=== PATIENT | male | born 1940 | race Caucasian/White ===

== ENCOUNTER 2016-09-25 20:26 | Emergency (ER) | payer OTHER, MEDICARE ==
--- NOTE | 2016-09-25 20:42 | PDOC ---
History of Present Illness - General History Source: Patient Exam Limitations: No Limitations - History of Present Illness Initial Comments: 09/25/16 21:39 The patient is a 75 year old male, with significant past medical history of HTN , HLD, right hip replacement (2 months ago), who presents today complaining of left shoulder pain s/p fall yesterday. The patient reports that he attempted to sit on the edge of a rolling lawn chair when it collapsed in and he fell on his left side and onto his left shoulder. The pain is exacerbated secondary to shoulder abduction and alleviated secondary to adduction. He denies any head trauma or LOC. He denies neck and back pain. He denies fever, nausea, vomiting, chills. Allergies: none reported <Kelly Bear - Last Filed: 09/25/16 21:39> <Karen Irving - Last Filed: 09/27/16 11:26> - General Stated Complaint: FALL/SHOULDER PAIN Time Seen by Provider: 09/25/16 20:41 Past History <Kelly Bear - Last Filed: 09/25/16 21:39> - Past Medical History Anemia: No Asthma: No Cancer: No Cardiac Disorders: Yes CVA: No COPD: No CHF: No Dementia: No Diabetes: No GI Disorders: Yes (colonoscopy with polyps benign) Disorders: Yes HTN: Yes Hypercholesterolemia: Yes Liver Disease: No Seizures: No Thyroid Disease: No - Surgical History Abdominal Surgery: No Appendectomy: No Cardiac Surgery: No Cholecystectomy: No Lung Surgery: No Neurologic Surgery: No Orthopedic Surgery: No - Psycho/Social/Smoking Cessation Hx Smoking History: Former smoker Have you smoked in the past 12 months: No If you are a former smoker, when did you quit?: 45YRS AGO Hx Alcohol Use: Yes Drug/Substance Use Hx: No Hx Substance Use Treatment: No <Karen Irving - Last Filed: 09/27/16 11:26> - Past Medical History Allergies/Adverse Reactions: Allergies Allergy/AdvReac Type Severity Reaction Status Date / Time No Known Drug Allergies Allergy Verified 09/25/16 20:44 Home Medications: Ambulatory Orders Lisinopril [Prinivil] 5 mg PO DAILY 08/03/11 Ibuprofen [Advil -] 200 mg PO TID PRN #21 tablet 09/25/16 Review of Systems - Review of Systems Able to Perform ROS?: Yes Comments:: 09/25/16 21:39 GENERAL/CONSTITUTIONAL: No fever or chills. No weakness. HEAD, EYES, EARS, NOSE AND THROAT: No change in vision. No ear pain or discharge. No sore throat. CARDIOVASCULAR: No chest pain or shortness of breath. RESPIRATORY: No cough, wheezing, or hemoptysis. GASTROINTESTINAL: No nausea, vomiting, diarrhea or constipation. GENITOURINARY: No dysuria, frequency, or change in urination. MUSCULOSKELETAL: +left shoulder pain s/p fall. No joint or muscle swelling or pain. No neck or back pain. SKIN: No rash NEUROLOGIC: No headache, vertigo, loss of consciousness, or change in strength/ sensation. ENDOCRINE: No increased thirst. No abnormal weight change. HEMATOLOGIC/LYMPHATIC: No anemia, easy bleeding, or history of blood clots. ALLERGIC/IMMUNOLOGIC: No hives or skin allergy. <Kelly Bear - Last Filed: 09/25/16 21:39> *Physical Exam - Vital Signs Last Vital Signs Temp Pulse Resp BP Pulse Ox 98.3 F 98 H 18 138/86 99 09/25/16 20:44 09/25/16 20:44 09/25/16 20:44 09/25/16 20:44 09/25/16 20:44 - Physical Exam Comments: 09/25/16 21:39 GENERAL: Awake, alert, and fully oriented, in no acute distress HEAD: No signs of trauma EYES: PERRLA, EOMI, sclera anicteric, conjunctiva clear LEFT UPPER EXTREMITY: Full ROM. No deformity. Mild tenderness over the acromion. Normal range of motion, no edema. No clubbing or cyanosis. No cords, erythema. NEUROLOGICAL: Cranial nerves II through XII grossly intact. Normal speech, normal gait SKIN: Warm, Dry, normal turgor, no rashes or lesions noted. <Kelly Bear - Last Filed: 09/25/16 21:39> ED Treatment Course - Medications Given in the ED: ED Medications Discontinued Medications Generic Name Dose Route Start Last Admin Trade Name Freq PRN Reason Stop Dose Admin Ibuprofen 400 mg 09/25/16 21:12 09/25/16 21:35 Motrin - PO 09/25/16 21:13 Not Given ONCE ONE <Kelly Bear - Last Filed: 09/25/16 21:39> Medical Decision Making - Medical Decision Making 09/25/16 22:30 Pt presents to the ED complaining of L shoulder pain after minor fall. Has pain with abduction of the shoulder only. No bony tenderness. Xray performed to rule out fracture and is negative on my preliminary read. Bursitis vs rotator cuff tear. Will discharge home with follow up with PMD. <Karen Irving - Last Filed: 09/27/16 11:26> *DC/Admit/Observation/Transfer - Attestations Scribe Attestion: 09/25/16 21:40 Documentation prepared by DELLA Turner, acting as esthetician and manager medical spa for Karen Irving MD. <Kelly Bear - Last Filed: 09/25/16 21:39> - Discharge Dispostion Admit: No <Karen Irving - Last Filed: 09/27/16 11:26> Diagnosis at time of Disposition: Sprain of shoulder - Discharge Dispostion Disposition: HOME Condition at time of disposition: Good - Prescriptions Prescriptions: Ibuprofen [Advil -] 200 mg PO TID PRN #21 tablet PRN Reason: Pain - Patient Instructions Printed Discharge Instructions: DI for Shoulder Sprain Additional Instructions: make sure that you move your shoulder every day. Make sure that you follow up with your primary care doctor. You may have a tear in your rotator cuff.
[2016-09-25 20:47] VITALS: BP 138/86; PULSE 98; TEMP 98.3; BMI 25.7
[2016-09-25] MEDS ORDERED: IBUPROFEN 400 MG TABLET (FP) PO ONE (21:12)
== END 2016-09-25 23:05 | disposition home or self-care (01) ==
LOC: JER 20:26
DX: S49.82XA Other specified injuries of left shoulder and upper arm, initial encounter (principal); W07.XXXA Fall from chair, initial encounter; Z91.81 History of falling; Y93.89 Activity, other specified; Y92.017 Garden or yard in single-family (private) house as the place of occurrence of the external cause; I10 Essential (primary) hypertension; E78.00 Pure hypercholesterolemia, unspecified; Z96.641 Presence of right artificial hip joint
CPT/HCPCS: 73030-TC-LT; 99283-25

== ENCOUNTER 2020-10-10 04:52 | Day surgery (SDC) | payer OTHER, MEDICARE ==
[2020-10-09 17:17] VITALS: BMI 25.6
[2020-10-10 08:31] LABS: INR 1.2 (0.83-1.09); PROTHROMBIN TIME (PATIENT) 14.5 SEC (9.7-13.0)
[2020-10-10] MEDS ORDERED: MIDAZOLAM HCL 2 MG/2 ML SINGLE DOSE VIAL IVPUSH ONE (10:55)
[2020-10-10 13:27] VITALS: TEMP 97.8
[2020-10-10 13:36] VITALS: BP 125/75; PULSE 85
== END 2020-10-10 13:30 | disposition home or self-care (01) ==
LOC: JRADIR 04:52
PROVIDERS: ATTEND Internal Medicine Hematology & Oncology
PROC: 07DR3ZX Extraction of Iliac Bone Marrow, Percutaneous Approach, Diagnostic (ICD-10-PCS; principal; 2020-10-10)
DX: C90.00 Multiple myeloma not having achieved remission (principal)
CPT/HCPCS: 20225; 36415; 85610; 87899

== ENCOUNTER 2020-10-13 07:13 | Day surgery (SDC) | payer OTHER, MEDICARE ==
[2020-10-13] MEDS ORDERED: DENOSUMAB 120 MG/1.7 ML VIAL SQ ONE (13:30)
[2020-10-13 13:37] LABS: BASO % 0.4 % (0-2.0); EOS % 3.3 % (0-4.5); HEMATOCRIT 25.3 % (35.4-49); HEMOGLOBIN 8.6 GM/dL (11.7-16.9); LYMPH % 27.9 % (8-40); MCH 32.6 pg (25.7-33.7); MCHC 34.1 g/dl (32.0-35.9); MEAN CELL VOLUME 95.5 fl (80-96); MEAN PLT VOLUME 8.7 fl (7.5-11.1); MONO % 12.8 % (3.8-10.2); NEUT % 55.6 % (42.8-82.8); PLATELET COUNT 189 10^3/uL (134-434); RBC 2.65 M/mm3 (4.00-5.60); RDW 15.2 % (11.9-15.9); WHITE BLOOD COUNT 3.3 K/mm3 (4.0-10.0)
[2020-10-13] MEDS ORDERED: DEXAMETHASONE 4 MG TABLET (FP) PO ONE (14:00)
[2020-10-13] MEDS ORDERED: ONDANSETRON 8 MG TABLET (FP) PO ONE (14:00)
[2020-10-13] MEDS ORDERED: BORTEZOMIB (VELCADE) 2.5 MG/ML SUB-Q INJECTION SQ ONE (14:00)
[2020-10-13 19:01] VITALS: BP 110/66; PULSE 92; TEMP 99
== END 2020-10-13 15:00 | disposition home or self-care (01) ==
LOC: JONCCHEMO 07:13
PROVIDERS: ATTEND Internal Medicine Hematology & Oncology
PROC: 3E013GC Introduction of Other Therapeutic Substance into Subcutaneous Tissue, Percutaneous Approach (ICD-10-PCS; principal; 2020-10-13)
PROC: 3E01305 Introduction of Other Antineoplastic into Subcutaneous Tissue, Percutaneous Approach (ICD-10-PCS; 2020-10-13)
DX: Z51.11 Encounter for antineoplastic chemotherapy (principal); C90.00 Multiple myeloma not having achieved remission
CPT/HCPCS: 36415; 85025; 96372; 96401; J0897; J9041

== ENCOUNTER 2020-10-20 10:18 | Day surgery (SDC) | payer OTHER, MEDICARE ==
[2020-10-20] MEDS ORDERED: BORTEZOMIB (VELCADE) 2.5 MG/ML SUB-Q INJECTION SQ ONE (11:45)
[2020-10-20] MEDS ORDERED: ONDANSETRON 4 MG TABLET PO ONE (11:45)
[2020-10-20] MEDS ORDERED: DEXAMETHASONE 4 MG TABLET (FP) PO ONE (11:45)
[2020-10-21 11:51] VITALS: BP 126/54; PULSE 98; TEMP 98.5
== END 2020-10-20 16:00 | disposition home or self-care (01) ==
LOC: JONCCHEMO 10:18
PROVIDERS: ATTEND Internal Medicine Hematology & Oncology
DX: Z51.11 Encounter for antineoplastic chemotherapy (principal); C90.00 Multiple myeloma not having achieved remission
CPT/HCPCS: 96401; J9041

== ENCOUNTER 2020-10-29 06:59 | Day surgery (SDC) | payer OTHER, MEDICARE ==
[2020-10-29] MEDS ORDERED: ONDANSETRON 4 MG TABLET PO ONE (10:00)
[2020-10-29] MEDS ORDERED: DEXAMETHASONE 4 MG TABLET (FP) PO ONE (10:00)
[2020-10-29] MEDS ORDERED: BORTEZOMIB (VELCADE) 2.5 MG/ML SUB-Q INJECTION SQ ONE (10:30)
[2020-10-29 11:00] LABS: BASO % 1.1 % (0-2.0); EOS % 2.3 % (0-4.5); HEMATOCRIT 27.7 % (35.4-49); HEMOGLOBIN 9.3 GM/dL (11.7-16.9); LYMPH % 13.3 % (8-40); MCH 33.2 pg (25.7-33.7); MCHC 33.5 g/dl (32.0-35.9); MEAN CELL VOLUME 99.1 fl (80-96); MEAN PLT VOLUME 9.5 fl (7.5-11.1); MONO % 7.6 % (3.8-10.2); NEUT % 75.7 % (42.8-82.8); PLATELET COUNT 153 10^3/uL (134-434)
[2020-10-29 11:22] LABS: ALBUMIN 2.6 g/dl (3.4-5.0); CALCIUM 7.7 mg/dL (8.5-10.1)
[2020-10-29 11:23] LABS: BLOOD UREA NITROGEN 24.9 mg/dL (7-18)
[2020-10-29 11:26] LABS: CREATININE 1.3 mg/dL (0.55-1.3)
[2020-10-29 11:27] LABS: BILIRUBIN,TOTAL 0.4 mg/dL (0.2-1); TOT PROT 9.7 g/dl (6.4-8.2)
[2020-10-29 16:24] VITALS: BP 142/87; PULSE 100; TEMP 98.4
[2020-10-30 11:08] LABS: HEP B CORE AB, TOT Negative (Negative)
== END 2020-10-29 11:40 | disposition home or self-care (01) ==
LOC: JONCCHEMO 06:59
PROVIDERS: ATTEND Internal Medicine Hematology & Oncology
DX: Z51.11 Encounter for antineoplastic chemotherapy (principal); C90.00 Multiple myeloma not having achieved remission
CPT/HCPCS: 36415; 80053; 85025; 86704; 86706; 86707; 86708; 86709; 87340; 96401; J9041

== ENCOUNTER 2020-11-05 05:14 | Day surgery (SDC) | payer OTHER, MEDICARE ==
[2020-11-05] MEDS ORDERED: BORTEZOMIB (VELCADE) 2.5 MG/ML SUB-Q INJECTION SQ ONE (10:00)
[2020-11-05] MEDS ORDERED: ONDANSETRON 8 MG TABLET (FP) PO ONE (10:00)
[2020-11-05] MEDS ORDERED: DEXAMETHASONE 4 MG TABLET (FP) PO ONE (10:00)
[2020-11-05 12:03] LABS: BASO % 0.6 % (0-2.0); EOS % 3.4 % (0-4.5); HEMATOCRIT 26.7 % (35.4-49); HEMOGLOBIN 8.9 GM/dL (11.7-16.9); LYMPH % 11.9 % (8-40); MCH 33.2 pg (25.7-33.7); MCHC 33.4 g/dl (32.0-35.9); MEAN CELL VOLUME 99.5 fl (80-96); MEAN PLT VOLUME 9.9 fl (7.5-11.1); MONO % 11.4 % (3.8-10.2); NEUT % 72.7 % (42.8-82.8); PLATELET COUNT 163 10^3/uL (134-434); RBC 2.69 M/mm3 (4.00-5.60); RDW 16.8 % (11.9-15.9); WHITE BLOOD COUNT 4.4 K/mm3 (4.0-10.0)
[2020-11-05 12:25] LABS: MAGNESIUM 1.9 mg/dL (1.8-2.4)
[2020-11-05 12:26] LABS: CALCIUM 8.1 mg/dL (8.5-10.1)
[2020-11-05 12:27] LABS: ALBUMIN 2.6 g/dl (3.4-5.0)
[2020-11-05 12:30] LABS: CREATININE 1.1 mg/dL (0.55-1.3)
[2020-11-05 12:31] LABS: BILIRUBIN,TOTAL 0.3 mg/dL (0.2-1)
[2020-11-05 12:32] LABS: TOT PROT 9.2 g/dl (6.4-8.2)
[2020-11-05 13:13] LABS: URIC ACID 4.2 mg/dL (2.6-7.2)
[2020-11-05 13:32] LABS: EPI CELLS 5 /uL (0-25.1); HYALINE CASTS 6 /uL (0-3.1); URINE APPEARANCE CLOUDY; URINE BACTERIA 2 /uL (0-1359); URINE BILIRUBIN NEGATIVE (NEGATIVE); URINE COLOR YELLOW; URINE GLUCOSE (UA) NEGATIVE (NEGATIVE); URINE KETONE NEGATIVE (NEGATIVE); URINE LEUK ESTERASE NEGATIVE (NEGATIVE); URINE NITRITE NEGATIVE (NEGATIVE); URINE PROTEIN 1+ (NEGATIVE); URINE RBC 2 /uL (0-23.9); URINE UROBILINOGEN 0.2 mg/dL (0.2-1.0); URINE WBC 5 /uL (0-25.8)
[2020-11-05 14:55] VITALS: BP 124/65; PULSE 100; TEMP 98.4
[2020-11-06 17:10] LABS: FREE KAPPA,SERUM 189.7 mg/L (3.3-19.4)
== END 2020-11-05 13:45 | disposition home or self-care (01) ==
LOC: JONCCHEMO 05:14
PROVIDERS: ATTEND Internal Medicine Hematology & Oncology
DX: Z51.11 Encounter for antineoplastic chemotherapy (principal); C90.00 Multiple myeloma not having achieved remission; R50.9 Fever, unspecified
CPT/HCPCS: 36415; 71046-TC-FY; 80053; 80061; 81003; 82728; 83036; 83540; 83550; 83615; 83721; 83735; 83883; 84550; 85025; 87040; 87086; 96401; J9041

== ENCOUNTER 2020-11-12 06:53 | Day surgery (SDC) | payer OTHER, MEDICARE ==
[2020-11-12] MEDS ORDERED: ONDANSETRON 8 MG TABLET (FP) PO ONE (10:00)
[2020-11-12] MEDS ORDERED: DEXAMETHASONE 4 MG TABLET (FP) PO ONE (10:00)
[2020-11-12] MEDS ORDERED: BORTEZOMIB (VELCADE) 2.5 MG/ML SUB-Q INJECTION SQ ONE (10:30)
[2020-11-12 12:00] LABS: BASO % 1.2 % (0-2.0); EOS % 2.8 % (0-4.5); HEMATOCRIT 27.9 % (35.4-49); HEMOGLOBIN 9.3 GM/dL (11.7-16.9); LYMPH % 24.6 % (8-40); MCH 33.6 pg (25.7-33.7); MCHC 33.2 g/dl (32.0-35.9); MEAN CELL VOLUME 101.1 fl (80-96); MEAN PLT VOLUME 9.3 fl (7.5-11.1); MONO % 22.6 % (3.8-10.2); NEUT % 48.8 % (42.8-82.8); PLATELET COUNT 191 10^3/uL (134-434); RBC 2.77 M/mm3 (4.00-5.60); RDW 16.9 % (11.9-15.9); WHITE BLOOD COUNT 3.7 K/mm3 (4.0-10.0)
[2020-11-12] MEDS ORDERED: DENOSUMAB 120 MG/1.7 ML VIAL SQ ONE (12:23)
[2020-11-12 12:24] LABS: ALBUMIN 2.6 g/dl (3.4-5.0); BLOOD UREA NITROGEN 20.4 mg/dL (7-18)
[2020-11-12 12:27] LABS: CREATININE 1.2 mg/dL (0.55-1.3)
[2020-11-12 12:29] LABS: BILIRUBIN,TOTAL 0.2 mg/dL (0.2-1)
[2020-11-12 12:32] LABS: TOT PROT 8.7 g/dl (6.4-8.2)
[2020-11-12 13:19] LABS: ANISOCYTOSIS 1+; MACROCYTOSIS 0; PLATELET ESTIMATE NORMAL
[2020-11-12 16:22] VITALS: BP 147/66; PULSE 84; TEMP 98.3
== END 2020-11-12 13:15 | disposition home or self-care (01) ==
LOC: JONCCHEMO 06:53
PROVIDERS: ATTEND Internal Medicine Hematology & Oncology
PROC: 3E01305 Introduction of Other Antineoplastic into Subcutaneous Tissue, Percutaneous Approach (ICD-10-PCS; principal; 2020-11-12)
PROC: 3E013GC Introduction of Other Therapeutic Substance into Subcutaneous Tissue, Percutaneous Approach (ICD-10-PCS; 2020-11-12)
DX: Z51.11 Encounter for antineoplastic chemotherapy (principal); C90.00 Multiple myeloma not having achieved remission
CPT/HCPCS: 36415; 80053; 83615; 84550; 85025; 96372; 96401; J0897; J9041

== ENCOUNTER 2020-11-19 06:58 | Day surgery (SDC) | payer OTHER, MEDICARE ==
[2020-11-19] MEDS ORDERED: DEXAMETHASONE 4 MG TABLET (FP) PO ONE (10:00)
[2020-11-19] MEDS ORDERED: ONDANSETRON 8 MG TABLET (FP) PO ONE (10:00)
[2020-11-19] MEDS ORDERED: BORTEZOMIB (VELCADE) 2.5 MG/ML SUB-Q INJECTION SQ ONE (10:30)
[2020-11-19 11:41] LABS: BASO % 0.6 % (0-2.0); EOS % 3.8 % (0-4.5); HEMATOCRIT 27.9 % (35.4-49); HEMOGLOBIN 9.4 GM/dL (11.7-16.9); LYMPH % 11.8 % (8-40); MCHC 33.9 g/dl (32.0-35.9); MEAN CELL VOLUME 100.2 fl (80-96); MEAN PLT VOLUME 10.5 fl (7.5-11.1); MONO % 10.2 % (3.8-10.2); NEUT % 73.6 % (42.8-82.8); PLATELET COUNT 115 10^3/uL (134-434); RBC 2.78 M/mm3 (4.00-5.60); RDW 16.7 % (11.9-15.9)
[2020-11-19 12:04] LABS: CALCIUM 7.8 mg/dL (8.5-10.1)
[2020-11-19 12:05] LABS: ALBUMIN 2.7 g/dl (3.4-5.0); BLOOD UREA NITROGEN 14.6 mg/dL (7-18)
[2020-11-19 12:09] LABS: BILIRUBIN,TOTAL 0.4 mg/dL (0.2-1); TOT PROT 8.4 g/dl (6.4-8.2)
[2020-11-19 17:45] VITALS: BP 106/57; PULSE 86; TEMP 98.5
== END 2020-11-19 13:30 | disposition home or self-care (01) ==
LOC: JONCCHEMO 06:58
PROVIDERS: ATTEND Internal Medicine Hematology & Oncology
DX: Z51.11 Encounter for antineoplastic chemotherapy (principal); C90.00 Multiple myeloma not having achieved remission
CPT/HCPCS: 36415; 80053; 82784; 83883; 85025; 96401; 96409; J9041

== ENCOUNTER 2020-11-26 08:37 | Day surgery (SDC) | payer OTHER, MEDICARE ==
[2020-11-26 09:47] LABS: BASO % 1.1 % (0-2.0); EOS % 5.5 % (0-4.5); HEMATOCRIT 27.5 % (35.4-49); HEMOGLOBIN 9.5 GM/dL (11.7-16.9); LYMPH % 16.4 % (8-40); MCH 34.8 pg (25.7-33.7); MCHC 34.7 g/dl (32.0-35.9); MEAN CELL VOLUME 100.3 fl (80-96); MONO % 14.3 % (3.8-10.2); NEUT % 62.7 % (42.8-82.8); PLATELET COUNT 120 10^3/uL (134-434); RBC 2.74 M/mm3 (4.00-5.60); WHITE BLOOD COUNT 4.1 K/mm3 (4.0-10.0)
[2020-11-26] MEDS ORDERED: DEXAMETHASONE 4 MG TABLET (FP) PO ONE (10:00)
[2020-11-26] MEDS ORDERED: ONDANSETRON 8 MG TABLET (FP) PO ONE (10:00)
[2020-11-26 10:08] LABS: CALCIUM 7.4 mg/dL (8.5-10.1)
[2020-11-26 10:09] LABS: ALBUMIN 2.6 g/dl (3.4-5.0); BLOOD UREA NITROGEN 14.2 mg/dL (7-18)
[2020-11-26 10:13] LABS: BILIRUBIN,TOTAL 0.3 mg/dL (0.2-1); TOT PROT 7.6 g/dl (6.4-8.2)
[2020-11-26] MEDS ORDERED: BORTEZOMIB (VELCADE) 2.5 MG/ML SUB-Q INJECTION SQ ONE (10:30)
[2020-11-26 14:50] VITALS: BP 117/66; PULSE 78; TEMP 98.4
== END 2020-11-26 12:40 | disposition home or self-care (01) ==
LOC: JONCCHEMO 08:37
PROVIDERS: ATTEND Internal Medicine Hematology & Oncology
DX: Z51.11 Encounter for antineoplastic chemotherapy (principal); C90.00 Multiple myeloma not having achieved remission
CPT/HCPCS: 36415; 80053; 85025; 96401; J9041

== ENCOUNTER 2020-12-03 07:17 | Day surgery (SDC) | payer OTHER, MEDICARE ==
[2020-12-03] MEDS ORDERED: BORTEZOMIB (VELCADE) 2.5 MG/ML SUB-Q INJECTION SQ ONE (10:00)
[2020-12-03] MEDS ORDERED: ONDANSETRON 8 MG TABLET (FP) PO ONE (10:00)
[2020-12-03] MEDS ORDERED: DEXAMETHASONE 4 MG TABLET (FP) PO ONE (10:00)
[2020-12-03 11:06] LABS: BASO % 1.4 % (0-2.0); EOS % 10.1 % (0-4.5); HEMATOCRIT 29.4 % (35.4-49); HEMOGLOBIN 9.9 GM/dL (11.7-16.9); LYMPH % 20.4 % (8-40); MCH 34.1 pg (25.7-33.7); MCHC 33.8 g/dl (32.0-35.9); MEAN CELL VOLUME 101.2 fl (80-96); MEAN PLT VOLUME 10.5 fl (7.5-11.1); MONO % 12.7 % (3.8-10.2); NEUT % 55.4 % (42.8-82.8); PLATELET COUNT 134 10^3/uL (134-434); RDW 15.8 % (11.9-15.9); WHITE BLOOD COUNT 3.3 K/mm3 (4.0-10.0)
[2020-12-03 11:28] LABS: CALCIUM 7.5 mg/dL (8.5-10.1)
[2020-12-03 11:29] LABS: ALBUMIN 2.8 g/dl (3.4-5.0); BLOOD UREA NITROGEN 14.8 mg/dL (7-18)
[2020-12-03 11:32] LABS: CREATININE 0.9 mg/dL (0.55-1.3)
[2020-12-03 11:34] LABS: BILIRUBIN,TOTAL 0.3 mg/dL (0.2-1); TOT PROT 6.8 g/dl (6.4-8.2)
[2020-12-03 19:00] VITALS: BP 130/61; PULSE 76; TEMP 98.3
[2020-12-04 17:07] LABS: FREE KAPPA,SERUM 119.7 mg/L (3.3-19.4)
== END 2020-12-03 12:30 | disposition home or self-care (01) ==
LOC: JONCCHEMO 07:17
PROVIDERS: ATTEND Internal Medicine Hematology & Oncology
DX: Z51.11 Encounter for antineoplastic chemotherapy (principal); C90.00 Multiple myeloma not having achieved remission
CPT/HCPCS: 36415; 80053; 82784; 83883; 85025; 96401; J9041

== ENCOUNTER 2020-12-10 06:44 | Day surgery (SDC) | payer OTHER, MEDICARE ==
[2020-12-10] MEDS ORDERED: BORTEZOMIB (VELCADE) 2.5 MG/ML SUB-Q INJECTION SQ ONE (10:00)
[2020-12-10] MEDS ORDERED: ONDANSETRON 8 MG TABLET (FP) PO ONE (10:00)
[2020-12-10] MEDS ORDERED: DEXAMETHASONE 4 MG TABLET (FP) PO ONE (10:00)
[2020-12-10 15:24] LABS: EOS % 1.9 % (0-4.5); HEMATOCRIT 31.1 % (35.4-49); HEMOGLOBIN 10.5 GM/dL (11.7-16.9); LYMPH % 27.6 % (8-40); MCH 33.9 pg (25.7-33.7); MCHC 33.6 g/dl (32.0-35.9); MEAN CELL VOLUME 100.8 fl (80-96); MEAN PLT VOLUME 10.6 fl (7.5-11.1); MONO % 13.4 % (3.8-10.2); NEUT % 55.1 % (42.8-82.8); PLATELET COUNT 181 10^3/uL (134-434); RBC 3.09 M/mm3 (4.00-5.60); RDW 15.6 % (11.9-15.9); WHITE BLOOD COUNT 4.4 K/mm3 (4.0-10.0)
[2020-12-10 15:48] LABS: BLOOD UREA NITROGEN 20.5 mg/dL (7-18)
[2020-12-10 15:52] LABS: BILIRUBIN,TOTAL 0.3 mg/dL (0.2-1); TOT PROT 6.8 g/dl (6.4-8.2)
[2020-12-10 16:37] VITALS: BP 121/50; PULSE 74; TEMP 98.6
== END 2020-12-10 16:00 | disposition home or self-care (01) ==
LOC: JONCCHEMO 06:44
PROVIDERS: ATTEND Internal Medicine Hematology & Oncology
DX: Z51.11 Encounter for antineoplastic chemotherapy (principal); C90.00 Multiple myeloma not having achieved remission
CPT/HCPCS: 36415; 80053; 85025; 96401; J9041

== ENCOUNTER 2020-12-17 06:53 | Day surgery (SDC) | payer OTHER, MEDICARE ==
[2020-12-17] MEDS ORDERED: ONDANSETRON 8 MG TABLET (FP) PO ONE (10:00)
[2020-12-17] MEDS ORDERED: BORTEZOMIB (VELCADE) 2.5 MG/ML SUB-Q INJECTION SQ ONE (10:00)
[2020-12-17] MEDS ORDERED: DEXAMETHASONE 4 MG TABLET (FP) PO ONE (10:00)
[2020-12-17 10:41] LABS: BASO % 1.9 % (0-2.0); EOS % 3.4 % (0-4.5); HEMATOCRIT 33.7 % (35.4-49); HEMOGLOBIN 11.2 GM/dL (11.7-16.9); LYMPH % 16.8 % (8-40); MCH 33.7 pg (25.7-33.7); MCHC 33.3 g/dl (32.0-35.9); MEAN PLT VOLUME 10.7 fl (7.5-11.1); NEUT % 69.9 % (42.8-82.8); PLATELET COUNT 134 10^3/uL (134-434); RBC 3.34 M/mm3 (4.00-5.60); RDW 14.9 % (11.9-15.9); WHITE BLOOD COUNT 5.4 K/mm3 (4.0-10.0)
[2020-12-17 11:06] LABS: ALBUMIN 3.2 g/dl (3.4-5.0); BLOOD UREA NITROGEN 14.9 mg/dL (7-18); CALCIUM 8.6 mg/dL (8.5-10.1)
[2020-12-17 11:11] LABS: BILIRUBIN,TOTAL 0.5 mg/dL (0.2-1); TOT PROT 6.9 g/dl (6.4-8.2)
[2020-12-17] MEDS ORDERED: DENOSUMAB 120 MG/1.7 ML VIAL SQ ONE (11:36)
[2020-12-17 15:21] VITALS: BP 106/53; PULSE 74; TEMP 98
== END 2020-12-17 12:45 | disposition home or self-care (01) ==
LOC: JONCCHEMO 06:53
PROVIDERS: ATTEND Internal Medicine Hematology & Oncology
PROC: 3E01305 Introduction of Other Antineoplastic into Subcutaneous Tissue, Percutaneous Approach (ICD-10-PCS; principal; 2020-12-17)
PROC: 3E013GC Introduction of Other Therapeutic Substance into Subcutaneous Tissue, Percutaneous Approach (ICD-10-PCS; 2020-12-17)
DX: Z51.11 Encounter for antineoplastic chemotherapy (principal); C90.00 Multiple myeloma not having achieved remission
CPT/HCPCS: 36415; 80053; 85025; 96372; 96401; J0897; J9041

== ENCOUNTER 2020-12-24 07:16 | Day surgery (SDC) | payer OTHER, MEDICARE ==
[2020-12-24] MEDS ORDERED: ONDANSETRON 8 MG TABLET (FP) PO ONE (10:00)
[2020-12-24] MEDS ORDERED: DEXAMETHASONE 4 MG TABLET (FP) PO ONE (10:00)
[2020-12-24 10:16] LABS: BASO % 1.4 % (0-2.0); EOS % 5.1 % (0-4.5); HEMOGLOBIN 11.4 GM/dL (11.7-16.9); LYMPH % 19.2 % (8-40); MCH 33.2 pg (25.7-33.7); MCHC 33.6 g/dl (32.0-35.9); MEAN PLT VOLUME 11.2 fl (7.5-11.1); MONO % 11.1 % (3.8-10.2); NEUT % 63.2 % (42.8-82.8); PLATELET COUNT 118 10^3/uL (134-434); RBC 3.43 M/mm3 (4.00-5.60); RDW 14.6 % (11.9-15.9); WHITE BLOOD COUNT 5.5 K/mm3 (4.0-10.0)
[2020-12-24] MEDS ORDERED: BORTEZOMIB (VELCADE) 2.5 MG/ML SUB-Q INJECTION SQ ONE (10:30)
[2020-12-24 10:37] LABS: ALBUMIN 3.1 g/dl (3.4-5.0); BLOOD UREA NITROGEN 19.1 mg/dL (7-18)
[2020-12-24 10:40] LABS: CALCIUM 8.2 mg/dL (8.5-10.1)
[2020-12-24 10:41] LABS: BILIRUBIN,TOTAL 0.3 mg/dL (0.2-1)
[2020-12-24 10:42] LABS: TOT PROT 6.6 g/dl (6.4-8.2)
[2020-12-24 11:46] VITALS: BP 116/56; PULSE 82; TEMP 98.9
== END 2020-12-24 11:45 | disposition home or self-care (01) ==
LOC: JONCCHEMO 07:16
PROVIDERS: ATTEND Internal Medicine Hematology & Oncology
DX: Z51.11 Encounter for antineoplastic chemotherapy (principal); C90.00 Multiple myeloma not having achieved remission; I10 Essential (primary) hypertension
CPT/HCPCS: 36415; 80053; 85025; 96401; J9041

== ENCOUNTER 2020-12-31 07:22 | Day surgery (SDC) | payer OTHER, MEDICARE ==
[2020-12-31] MEDS ORDERED: BORTEZOMIB (VELCADE) 2.5 MG/ML SUB-Q INJECTION SQ ONE (10:00)
[2020-12-31] MEDS ORDERED: DEXAMETHASONE 4 MG TABLET (FP) PO ONE (10:00)
[2020-12-31] MEDS ORDERED: ONDANSETRON 8 MG TABLET (FP) PO ONE (10:00)
[2020-12-31 11:32] LABS: BASO % 1.2 % (0-2.0); EOS % 2.8 % (0-4.5); HEMATOCRIT 36.1 % (35.4-49); HEMOGLOBIN 12.1 GM/dL (11.7-16.9); LYMPH % 23.3 % (8-40); MCHC 33.5 g/dl (32.0-35.9); MEAN CELL VOLUME 98.6 fl (80-96); MEAN PLT VOLUME 11.3 fl (7.5-11.1); MONO % 13.8 % (3.8-10.2); NEUT % 58.9 % (42.8-82.8); PLATELET COUNT 117 10^3/uL (134-434); RBC 3.66 M/mm3 (4.00-5.60); RDW 14.1 % (11.9-15.9); WHITE BLOOD COUNT 4.4 K/mm3 (4.0-10.0)
[2020-12-31 11:59] LABS: ALBUMIN 3.2 g/dl (3.4-5.0); CALCIUM 8.5 mg/dL (8.5-10.1)
[2020-12-31 12:00] LABS: BLOOD UREA NITROGEN 16.6 mg/dL (7-18)
[2020-12-31 12:03] LABS: CREATININE 0.9 mg/dL (0.55-1.3)
[2020-12-31 12:04] LABS: BILIRUBIN,TOTAL 0.3 mg/dL (0.2-1); TOT PROT 6.7 g/dl (6.4-8.2)
[2020-12-31 16:18] VITALS: BP 105/64; PULSE 77; TEMP 98.9
[2021-01-01 18:07] LABS: FREE KAPPA,SERUM 65.7 mg/L (3.3-19.4)
== END 2020-12-31 13:00 | disposition home or self-care (01) ==
LOC: JONCCHEMO 07:22
PROVIDERS: ATTEND Internal Medicine Hematology & Oncology
DX: Z51.11 Encounter for antineoplastic chemotherapy (principal); C90.00 Multiple myeloma not having achieved remission
CPT/HCPCS: 36415; 80053; 83883; 85025; 96401; J9041

== ENCOUNTER 2021-01-07 07:21 | Day surgery (SDC) | payer OTHER, MEDICARE ==
[2021-01-07 12:15] LABS: BASO % 1.3 % (0-2.0); EOS % 1.1 % (0-4.5); HEMATOCRIT 33.7 % (35.4-49); HEMOGLOBIN 11.4 GM/dL (11.7-16.9); LYMPH % 23.2 % (8-40); MCH 32.8 pg (25.7-33.7); MCHC 33.9 g/dl (32.0-35.9); MEAN CELL VOLUME 96.8 fl (80-96); MEAN PLT VOLUME 10.2 fl (7.5-11.1); MONO % 11.5 % (3.8-10.2); NEUT % 62.9 % (42.8-82.8); PLATELET COUNT 137 10^3/uL (134-434); RBC 3.48 M/mm3 (4.00-5.60); RDW 14.4 % (11.9-15.9); WHITE BLOOD COUNT 5.4 K/mm3 (4.0-10.0)
[2021-01-07] MEDS ORDERED: ONDANSETRON 8 MG TABLET (FP) PO ONE (12:30)
[2021-01-07] MEDS ORDERED: DEXAMETHASONE 4 MG TABLET (FP) PO ONE (12:30)
[2021-01-07 12:39] LABS: CALCIUM 8.3 mg/dL (8.5-10.1)
[2021-01-07 12:41] LABS: ALBUMIN 3.1 g/dl (3.4-5.0); BLOOD UREA NITROGEN 17.5 mg/dL (7-18)
[2021-01-07 12:44] LABS: CREATININE 0.9 mg/dL (0.55-1.3)
[2021-01-07 12:45] LABS: BILIRUBIN,TOTAL 0.4 mg/dL (0.2-1); TOT PROT 6.5 g/dl (6.4-8.2)
[2021-01-07] MEDS ORDERED: BORTEZOMIB (VELCADE) 2.5 MG/ML SUB-Q INJECTION SQ ONE (13:00)
[2021-01-07 17:12] VITALS: BP 123/78; PULSE 79; TEMP 98.3
== END 2021-01-07 13:30 | disposition home or self-care (01) ==
LOC: JONCCHEMO 07:21
PROVIDERS: ATTEND Internal Medicine Hematology & Oncology
DX: Z51.11 Encounter for antineoplastic chemotherapy (principal); C90.00 Multiple myeloma not having achieved remission
CPT/HCPCS: 36415; 80053; 85025; 96401; J9041

== ENCOUNTER 2021-01-14 07:50 | Day surgery (SDC) | payer OTHER, MEDICARE ==
[2021-01-14] MEDS ORDERED: ONDANSETRON 8 MG TABLET (FP) PO ONE (10:00)
[2021-01-14] MEDS ORDERED: DEXAMETHASONE 4 MG TABLET (FP) PO ONE (10:00)
[2021-01-14] MEDS ORDERED: BORTEZOMIB (VELCADE) 2.5 MG/ML SUB-Q INJECTION SQ ONE (10:30)
[2021-01-14 10:51] LABS: BASO % 1.8 % (0-2.0); EOS % 2.1 % (0-4.5); HEMATOCRIT 36.7 % (35.4-49); HEMOGLOBIN 12.3 GM/dL (11.7-16.9); LYMPH % 21.6 % (8-40); MCH 32.5 pg (25.7-33.7); MCHC 33.5 g/dl (32.0-35.9); MEAN CELL VOLUME 97.1 fl (80-96); MEAN PLT VOLUME 10.3 fl (7.5-11.1); MONO % 7.4 % (3.8-10.2); NEUT % 67.1 % (42.8-82.8); PLATELET COUNT 116 10^3/uL (134-434); RBC 3.77 M/mm3 (4.00-5.60); RDW 14.5 % (11.9-15.9); WHITE BLOOD COUNT 4.4 K/mm3 (4.0-10.0)
[2021-01-14 11:09] LABS: CALCIUM 8.6 mg/dL (8.5-10.1)
[2021-01-14 11:10] LABS: ALBUMIN 3.3 g/dl (3.4-5.0); BLOOD UREA NITROGEN 18.2 mg/dL (7-18)
[2021-01-14 11:13] LABS: BILIRUBIN,DIRECT 0.1 mg/dL (0.0-0.2); CREATININE 1.1 mg/dL (0.55-1.3)
[2021-01-14 11:14] LABS: BILIRUBIN,TOTAL 0.4 mg/dL (0.2-1)
[2021-01-14 11:15] LABS: TOT PROT 6.7 g/dl (6.4-8.2)
[2021-01-14] MEDS ORDERED: DENOSUMAB 120 MG/1.7 ML VIAL SQ ONE (11:36)
[2021-01-14 18:38] VITALS: BP 93/47; PULSE 70; TEMP 98.1
[2021-01-15 18:07] LABS: FREE KAPPA,SERUM 57.4 mg/L (3.3-19.4)
== END 2021-01-14 12:20 | disposition home or self-care (01) ==
LOC: JONCCHEMO 07:50
PROVIDERS: ATTEND Internal Medicine Hematology & Oncology
PROC: 3E01305 Introduction of Other Antineoplastic into Subcutaneous Tissue, Percutaneous Approach (ICD-10-PCS; principal; 2021-01-14)
PROC: 3E013GC Introduction of Other Therapeutic Substance into Subcutaneous Tissue, Percutaneous Approach (ICD-10-PCS; 2021-01-14)
DX: Z51.11 Encounter for antineoplastic chemotherapy (principal); C90.00 Multiple myeloma not having achieved remission; I10 Essential (primary) hypertension
CPT/HCPCS: 36415; 80048; 80076; 82784; 83883; 84155; 84165; 85025; 96372; 96401; J0897; J9041

== ENCOUNTER 2021-01-21 07:54 | Day surgery (SDC) | payer OTHER, MEDICARE ==
[2021-01-21] MEDS ORDERED: ONDANSETRON 4 MG TABLET PO ONE (10:00)
[2021-01-21] MEDS ORDERED: DEXAMETHASONE 4 MG TABLET (FP) PO ONE (10:00)
[2021-01-21] MEDS ORDERED: BORTEZOMIB (VELCADE) 2.5 MG/ML SUB-Q INJECTION SQ ONE (10:00)
[2021-01-21 15:23] LABS: BASO % 1.2 % (0-2.0); EOS % 3.4 % (0-4.5); HEMATOCRIT 37.2 % (35.4-49); HEMOGLOBIN 12.4 GM/dL (11.7-16.9); LYMPH % 27.4 % (8-40); MCH 32.1 pg (25.7-33.7); MCHC 33.2 g/dl (32.0-35.9); MEAN CELL VOLUME 96.7 fl (80-96); MEAN PLT VOLUME 11.7 fl (7.5-11.1); PLATELET COUNT 108 10^3/uL (134-434); RBC 3.85 M/mm3 (4.00-5.60); RDW 14.2 % (11.9-15.9); WHITE BLOOD COUNT 6.1 K/mm3 (4.0-10.0)
[2021-01-21 15:50] LABS: CALCIUM 8.2 mg/dL (8.5-10.1)
[2021-01-21 15:51] LABS: ALBUMIN 3.4 g/dl (3.4-5.0)
[2021-01-21 15:54] LABS: CREATININE 1.1 mg/dL (0.55-1.3)
[2021-01-21 15:55] LABS: BILIRUBIN,TOTAL 0.3 mg/dL (0.2-1); TOT PROT 6.7 g/dl (6.4-8.2)
[2021-01-21 16:55] VITALS: BP 109/58; PULSE 78; TEMP 98.6
== END 2021-01-21 16:30 | disposition home or self-care (01) ==
LOC: JONCCHEMO 07:54
PROVIDERS: ATTEND Internal Medicine Hematology & Oncology
DX: Z51.11 Encounter for antineoplastic chemotherapy (principal); C90.00 Multiple myeloma not having achieved remission
CPT/HCPCS: 36415; 80053; 85025; 96401; J9041

== ENCOUNTER 2021-01-28 07:39 | Day surgery (SDC) | payer OTHER, MEDICARE ==
[2021-01-28] MEDS ORDERED: ONDANSETRON 8 MG TABLET (FP) PO ONE (11:15)
[2021-01-28] MEDS ORDERED: BORTEZOMIB (VELCADE) 2.5 MG/ML SUB-Q INJECTION SQ ONE (11:15)
[2021-01-28] MEDS ORDERED: DEXAMETHASONE 4 MG TABLET (FP) PO ONE (11:15)
[2021-01-28 11:31] LABS: EOS % 2.1 % (0-4.5); HEMATOCRIT 37.8 % (35.4-49); HEMOGLOBIN 12.6 GM/dL (11.7-16.9); LYMPH % 23.4 % (8-40); MCH 32.3 pg (25.7-33.7); MCHC 33.3 g/dl (32.0-35.9); MEAN CELL VOLUME 96.9 fl (80-96); MONO % 14.5 % (3.8-10.2); PLATELET COUNT 102 10^3/uL (134-434); RDW 14.5 % (11.9-15.9); WHITE BLOOD COUNT 3.9 K/mm3 (4.0-10.0)
[2021-01-28 12:03] LABS: ALBUMIN 3.3 g/dl (3.4-5.0); BLOOD UREA NITROGEN 15.5 mg/dL (7-18)
[2021-01-28 12:06] LABS: CREATININE 0.9 mg/dL (0.55-1.3)
[2021-01-28 12:07] LABS: BILIRUBIN,TOTAL 0.5 mg/dL (0.2-1)
[2021-01-28 12:08] LABS: TOT PROT 6.3 g/dl (6.4-8.2)
[2021-01-28 15:00] VITALS: BP 125/69; PULSE 82; TEMP 98.1
== END 2021-01-28 11:25 | disposition home or self-care (01) ==
LOC: JONCCHEMO 07:39
PROVIDERS: ATTEND Internal Medicine Hematology & Oncology
DX: Z51.11 Encounter for antineoplastic chemotherapy (principal); C90.00 Multiple myeloma not having achieved remission
CPT/HCPCS: 36415; 80053; 85025; 96401; J9041

== ENCOUNTER 2021-02-04 07:18 | Day surgery (SDC) | payer OTHER, MEDICARE ==
[2021-02-04] MEDS ORDERED: BORTEZOMIB (VELCADE) 2.5 MG/ML SUB-Q INJECTION SQ ONE (10:00)
[2021-02-04] MEDS ORDERED: DEXAMETHASONE 4 MG TABLET (FP) PO ONE (10:00)
[2021-02-04] MEDS ORDERED: ONDANSETRON 8 MG TABLET (FP) PO ONE (10:00)
[2021-02-04 10:53] LABS: BASO % 1.6 % (0-2.0); EOS % 0.6 % (0-4.5); HEMATOCRIT 37.7 % (35.4-49); HEMOGLOBIN 12.7 GM/dL (11.7-16.9); LYMPH % 28.8 % (8-40); MCHC 33.7 g/dl (32.0-35.9); MEAN PLT VOLUME 9.4 fl (7.5-11.1); MONO % 11.4 % (3.8-10.2); NEUT % 57.6 % (42.8-82.8); PLATELET COUNT 161 10^3/uL (134-434); RBC 3.97 M/mm3 (4.00-5.60); RDW 14.2 % (11.9-15.9); WHITE BLOOD COUNT 5.3 K/mm3 (4.0-10.0)
[2021-02-04 11:16] LABS: ALBUMIN 3.2 g/dl (3.4-5.0); CALCIUM 8.6 mg/dL (8.5-10.1)
[2021-02-04 11:17] LABS: BLOOD UREA NITROGEN 18.9 mg/dL (7-18)
[2021-02-04 11:20] LABS: CREATININE 0.9 mg/dL (0.55-1.3)
[2021-02-04 11:21] LABS: BILIRUBIN,TOTAL 0.3 mg/dL (0.2-1); TOT PROT 6.7 g/dl (6.4-8.2)
[2021-02-04 17:51] VITALS: BP 134/59; PULSE 69; TEMP 98.8
== END 2021-02-04 12:55 | disposition home or self-care (01) ==
LOC: JONCCHEMO 07:18
PROVIDERS: ATTEND Internal Medicine Hematology & Oncology
DX: Z51.11 Encounter for antineoplastic chemotherapy (principal); C90.00 Multiple myeloma not having achieved remission
CPT/HCPCS: 36415; 80053; 85025; 96401; J9041

== ENCOUNTER 2021-02-11 07:52 | Day surgery (SDC) | payer OTHER, MEDICARE ==
[2021-02-11] MEDS ORDERED: BORTEZOMIB (VELCADE) 2.5 MG/ML SUB-Q INJECTION SQ ONE (10:00)
[2021-02-11] MEDS ORDERED: ONDANSETRON 8 MG TABLET (FP) PO ONE (10:00)
[2021-02-11] MEDS ORDERED: DEXAMETHASONE 4 MG TABLET (FP) PO ONE (10:00)
[2021-02-11 11:06] LABS: BASO % 0.8 % (0-2.0); EOS % 1.9 % (0-4.5); HEMATOCRIT 37.7 % (35.4-49); HEMOGLOBIN 12.5 GM/dL (11.7-16.9); LYMPH % 25.2 % (8-40); MCH 31.9 pg (25.7-33.7); MCHC 33.2 g/dl (32.0-35.9); MEAN CELL VOLUME 95.9 fl (80-96); MONO % 8.8 % (3.8-10.2); NEUT % 63.3 % (42.8-82.8); PLATELET COUNT 122 10^3/uL (134-434); RBC 3.93 M/mm3 (4.00-5.60); RDW 14.7 % (11.9-15.9); WHITE BLOOD COUNT 4.2 K/mm3 (4.0-10.0)
[2021-02-11 11:23] LABS: CALCIUM 8.8 mg/dL (8.5-10.1)
[2021-02-11 11:24] LABS: ALBUMIN 3.2 g/dl (3.4-5.0); BLOOD UREA NITROGEN 19.5 mg/dL (7-18)
[2021-02-11 11:28] LABS: BILIRUBIN,TOTAL 0.4 mg/dL (0.2-1); TOT PROT 6.4 g/dl (6.4-8.2)
[2021-02-11] MEDS ORDERED: DENOSUMAB 120 MG/1.7 ML VIAL SQ ONE (12:15)
[2021-02-11 18:35] VITALS: BP 114/60; PULSE 74; TEMP 98.4
== END 2021-02-11 13:45 | disposition home or self-care (01) ==
LOC: JONCCHEMO 07:52
PROVIDERS: ATTEND Internal Medicine Hematology & Oncology
PROC: 3E01305 Introduction of Other Antineoplastic into Subcutaneous Tissue, Percutaneous Approach (ICD-10-PCS; principal; 2021-02-11)
PROC: 3E013GC Introduction of Other Therapeutic Substance into Subcutaneous Tissue, Percutaneous Approach (ICD-10-PCS; 2021-02-11)
DX: Z51.11 Encounter for antineoplastic chemotherapy (principal); C90.00 Multiple myeloma not having achieved remission
CPT/HCPCS: 36415; 80053; 85025; 96372; 96401; J0897; J9041

== ENCOUNTER 2021-02-18 07:30 | Day surgery (SDC) | payer OTHER, MEDICARE ==
[2021-02-18] MEDS ORDERED: ONDANSETRON 8 MG TABLET (FP) PO ONE (10:00)
[2021-02-18] MEDS ORDERED: DEXAMETHASONE 4 MG TABLET (FP) PO ONE (10:00)
[2021-02-18] MEDS ORDERED: BORTEZOMIB (VELCADE) 2.5 MG/ML SUB-Q INJECTION SQ ONE (10:30)
[2021-02-18 12:02] LABS: BASO % 0.8 % (0-2.0); EOS % 2.4 % (0-4.5); HEMOGLOBIN 12.6 GM/dL (11.7-16.9); LYMPH % 22.7 % (8-40); MCH 31.9 pg (25.7-33.7); MEAN CELL VOLUME 93.8 fl (80-96); MEAN PLT VOLUME 10.6 fl (7.5-11.1); MONO % 13.6 % (3.8-10.2); NEUT % 60.5 % (42.8-82.8); PLATELET COUNT 110 10^3/uL (134-434); RBC 3.95 M/mm3 (4.00-5.60); RDW 14.5 % (11.9-15.9); WHITE BLOOD COUNT 5.8 K/mm3 (4.0-10.0)
[2021-02-18 12:29] LABS: ALBUMIN 3.3 g/dl (3.4-5.0); BLOOD UREA NITROGEN 18.2 mg/dL (7-18); CALCIUM 8.7 mg/dL (8.5-10.1)
[2021-02-18 12:32] LABS: CREATININE 0.9 mg/dL (0.55-1.3)
[2021-02-18 12:34] LABS: BILIRUBIN,TOTAL 0.4 mg/dL (0.2-1); TOT PROT 6.4 g/dl (6.4-8.2)
[2021-02-18] MEDS ORDERED: ONDANSETRON 4 MG TABLET PO ONE (13:12)
[2021-02-18 13:47] VITALS: BP 112/60; PULSE 72; TEMP 98.7
[2021-02-19 17:07] LABS: FREE KAPPA,SERUM 31.4 mg/L (3.3-19.4)
== END 2021-02-18 13:25 | disposition home or self-care (01) ==
LOC: JONCCHEMO 07:30
PROVIDERS: ATTEND Internal Medicine Hematology & Oncology
DX: Z51.11 Encounter for antineoplastic chemotherapy (principal); C90.00 Multiple myeloma not having achieved remission
CPT/HCPCS: 36415; 80053; 83883; 85025; 96401; J9041

== ENCOUNTER 2021-02-25 08:20 | Day surgery (SDC) | payer OTHER, MEDICARE ==
[2021-02-25] MEDS ORDERED: BORTEZOMIB (VELCADE) 2.5 MG/ML SUB-Q INJECTION SQ ONE (10:00)
[2021-02-25] MEDS ORDERED: DEXAMETHASONE 4 MG TABLET (FP) PO ONE (10:00)
[2021-02-25] MEDS ORDERED: ONDANSETRON 8 MG TABLET (FP) PO ONE (10:00)
[2021-02-25 12:02] LABS: BASO % 0.9 % (0-2.0); EOS % 3.6 % (0-4.5); HEMATOCRIT 37.8 % (35.4-49); HEMOGLOBIN 12.6 GM/dL (11.7-16.9); LYMPH % 22.6 % (8-40); MCH 31.4 pg (25.7-33.7); MCHC 33.4 g/dl (32.0-35.9); MEAN PLT VOLUME 10.6 fl (7.5-11.1); MONO % 16.5 % (3.8-10.2); NEUT % 56.4 % (42.8-82.8); PLATELET COUNT 98 10^3/uL (134-434); RBC 4.02 M/mm3 (4.00-5.60); RDW 14.8 % (11.9-15.9); WHITE BLOOD COUNT 4.6 K/mm3 (4.0-10.0)
[2021-02-25 12:12] LABS: CALCIUM 8.3 mg/dL (8.5-10.1)
[2021-02-25 12:13] LABS: ALBUMIN 3.2 g/dl (3.4-5.0); BLOOD UREA NITROGEN 23.2 mg/dL (7-18)
[2021-02-25 12:16] LABS: CREATININE 1.1 mg/dL (0.55-1.3)
[2021-02-25 12:18] LABS: BILIRUBIN,TOTAL 0.3 mg/dL (0.2-1); TOT PROT 6.2 g/dl (6.4-8.2)
[2021-02-25 17:44] VITALS: BP 114/56; PULSE 76; TEMP 98.1
== END 2021-02-25 14:55 | disposition home or self-care (01) ==
LOC: JONCCHEMO 08:20
PROVIDERS: ATTEND Internal Medicine Hematology & Oncology
DX: Z51.11 Encounter for antineoplastic chemotherapy (principal); C90.00 Multiple myeloma not having achieved remission
CPT/HCPCS: 36415; 80053; 85025; 96401; J9041

== ENCOUNTER 2021-03-04 07:21 | Day surgery (SDC) | payer OTHER, MEDICARE ==
[2021-03-04] MEDS ORDERED: DEXAMETHASONE 4 MG TABLET (FP) PO ONE (10:00)
[2021-03-04] MEDS ORDERED: BORTEZOMIB (VELCADE) 2.5 MG/ML SUB-Q INJECTION SQ ONE (10:00)
[2021-03-04] MEDS ORDERED: ONDANSETRON 8 MG TABLET (FP) PO ONE (10:00)
[2021-03-04 11:01] LABS: BASO % 0.9 % (0-2.0); EOS % 0.6 % (0-4.5); HEMATOCRIT 38.9 % (35.4-49); HEMOGLOBIN 13.1 GM/dL (11.7-16.9); LYMPH % 23.2 % (8-40); MCH 31.6 pg (25.7-33.7); MCHC 33.7 g/dl (32.0-35.9); MEAN CELL VOLUME 93.7 fl (80-96); MEAN PLT VOLUME 9.8 fl (7.5-11.1); MONO % 11.7 % (3.8-10.2); NEUT % 63.6 % (42.8-82.8); PLATELET COUNT 158 10^3/uL (134-434); RBC 4.15 M/mm3 (4.00-5.60); RDW 14.9 % (11.9-15.9); WHITE BLOOD COUNT 6.4 K/mm3 (4.0-10.0)
[2021-03-04 11:20] LABS: CALCIUM 8.7 mg/dL (8.5-10.1)
[2021-03-04 11:21] LABS: ALBUMIN 3.4 g/dl (3.4-5.0); BLOOD UREA NITROGEN 20.3 mg/dL (7-18)
[2021-03-04 11:26] LABS: BILIRUBIN,TOTAL 0.5 mg/dL (0.2-1); TOT PROT 6.5 g/dl (6.4-8.2)
[2021-03-04 17:50] VITALS: PULSE 74; TEMP 98.2
[2021-03-04 17:51] VITALS: BP 127/81
== END 2021-03-04 15:00 | disposition home or self-care (01) ==
LOC: JONCCHEMO 07:21
PROVIDERS: ATTEND Internal Medicine Hematology & Oncology
DX: Z51.11 Encounter for antineoplastic chemotherapy (principal); C90.00 Multiple myeloma not having achieved remission
CPT/HCPCS: 36415; 80053; 85025; 96401; J9041

== ENCOUNTER 2021-03-11 07:17 | Day surgery (SDC) | payer OTHER, MEDICARE ==
[2021-03-11] MEDS ORDERED: DEXAMETHASONE 4 MG TABLET (FP) PO ONE (10:00)
[2021-03-11] MEDS ORDERED: ONDANSETRON 8 MG TABLET (FP) PO ONE (10:00)
[2021-03-11] MEDS ORDERED: DENOSUMAB 120 MG/1.7 ML VIAL SQ ONE (10:00)
[2021-03-11] MEDS ORDERED: BORTEZOMIB (VELCADE) 2.5 MG/ML SUB-Q INJECTION SQ ONE (10:30)
[2021-03-11 11:21] LABS: BASO % 1.4 % (0-2.0); EOS % 2.3 % (0-4.5); HEMATOCRIT 37.3 % (35.4-49); HEMOGLOBIN 12.5 GM/dL (11.7-16.9); LYMPH % 19.8 % (8-40); MCH 31.2 pg (25.7-33.7); MCHC 33.5 g/dl (32.0-35.9); MEAN CELL VOLUME 93.3 fl (80-96); MONO % 9.4 % (3.8-10.2); NEUT % 67.1 % (42.8-82.8); PLATELET COUNT 110 10^3/uL (134-434); RDW 15.1 % (11.9-15.9); WHITE BLOOD COUNT 4.6 K/mm3 (4.0-10.0)
[2021-03-11 11:43] LABS: CALCIUM 8.3 mg/dL (8.5-10.1)
[2021-03-11 11:44] LABS: ALBUMIN 3.4 g/dl (3.4-5.0); BLOOD UREA NITROGEN 17.4 mg/dL (7-18); MAGNESIUM 2.3 mg/dL (1.8-2.4)
[2021-03-11 11:47] LABS: CREATININE 0.9 mg/dL (0.55-1.3)
[2021-03-11 11:49] LABS: BILIRUBIN,TOTAL 0.5 mg/dL (0.2-1); TOT PROT 6.3 g/dl (6.4-8.2)
[2021-03-11 14:01] VITALS: BP 92/56; PULSE 68; TEMP 98.4
== END 2021-03-11 14:05 | disposition home or self-care (01) ==
LOC: JONCCHEMO 07:17
PROVIDERS: ATTEND Internal Medicine Hematology & Oncology
DX: Z51.11 Encounter for antineoplastic chemotherapy (principal); C90.00 Multiple myeloma not having achieved remission
CPT/HCPCS: 36415; 80053; 83735; 85025; 96372; 96401; J0897; J9041

== ENCOUNTER 2021-03-18 07:07 | Day surgery (SDC) | payer OTHER, MEDICARE ==
[2021-03-18] MEDS ORDERED: DEXAMETHASONE 4 MG TABLET (FP) PO ONE (10:00)
[2021-03-18] MEDS ORDERED: ONDANSETRON 8 MG TABLET (FP) PO ONE (10:00)
[2021-03-18] MEDS ORDERED: BORTEZOMIB (VELCADE) 2.5 MG/ML SUB-Q INJECTION SQ ONE (10:00)
[2021-03-18 11:12] LABS: BASO % 0.9 % (0-2.0); EOS % 1.9 % (0-4.5); HEMATOCRIT 38.2 % (35.4-49); HEMOGLOBIN 12.8 GM/dL (11.7-16.9); LYMPH % 17.1 % (8-40); MCH 31.5 pg (25.7-33.7); MCHC 33.4 g/dl (32.0-35.9); MEAN CELL VOLUME 94.5 fl (80-96); MEAN PLT VOLUME 10.6 fl (7.5-11.1); MONO % 12.9 % (3.8-10.2); NEUT % 67.2 % (42.8-82.8); PLATELET COUNT 106 10^3/uL (134-434); RBC 4.05 M/mm3 (4.00-5.60); RDW 14.9 % (11.9-15.9); WHITE BLOOD COUNT 6.1 K/mm3 (4.0-10.0)
[2021-03-18 11:48] LABS: ALBUMIN 3.5 g/dl (3.4-5.0); BILIRUBIN,TOTAL 0.6 mg/dL (0.2-1); CALCIUM 8.2 mg/dL (8.5-10.1); TOT PROT 6.3 g/dl (6.4-8.2)
[2021-03-18 15:36] VITALS: BP 107/57; PULSE 74; TEMP 98.6
[2021-03-21 16:07] LABS: FREE KAPPA,SERUM 28.5 mg/L (3.3-19.4)
== END 2021-03-18 13:40 | disposition home or self-care (01) ==
LOC: JONCCHEMO 07:07
PROVIDERS: ATTEND Internal Medicine Hematology & Oncology
DX: Z51.11 Encounter for antineoplastic chemotherapy (principal); C90.00 Multiple myeloma not having achieved remission
CPT/HCPCS: 36415; 80053; 82784; 83735; 83883; 85025; 96401; J9041

== ENCOUNTER 2021-03-27 07:53 | Day surgery (SDC) | payer OTHER, MEDICARE ==
[2021-03-27] MEDS ORDERED: ONDANSETRON 8 MG TABLET (FP) PO ONE (09:00)
[2021-03-27] MEDS ORDERED: DEXAMETHASONE 4 MG TABLET (FP) PO ONE (09:00)
[2021-03-27] MEDS ORDERED: BORTEZOMIB (VELCADE) 2.5 MG/ML SUB-Q INJECTION SQ ONE (09:00)
[2021-03-27 09:22] LABS: EOS % 2.8 % (0-4.5); HEMATOCRIT 37.1 % (35.4-49); HEMOGLOBIN 12.7 GM/dL (11.7-16.9); LYMPH % 23.9 % (8-40); MCH 31.7 pg (25.7-33.7); MCHC 34.1 g/dl (32.0-35.9); MEAN PLT VOLUME 9.7 fl (7.5-11.1); MONO % 16.2 % (3.8-10.2); NEUT % 56.1 % (42.8-82.8); PLATELET COUNT 133 10^3/uL (134-434); RBC 3.99 M/mm3 (4.00-5.60); RDW 15.8 % (11.9-15.9); WHITE BLOOD COUNT 4.5 K/mm3 (4.0-10.0)
[2021-03-27 09:50] LABS: ALBUMIN 3.4 g/dl (3.4-5.0); BLOOD UREA NITROGEN 19.2 mg/dL (7-18); CALCIUM 8.2 mg/dL (8.5-10.1)
[2021-03-27 09:55] LABS: BILIRUBIN,TOTAL 0.5 mg/dL (0.2-1); TOT PROT 6.3 g/dl (6.4-8.2)
[2021-03-27 15:28] VITALS: BP 111/62; TEMP 98
[2021-03-27 15:29] VITALS: PULSE 64
[2021-03-28 16:21] LABS: FREE KAPPA,SERUM 24.3 mg/L (3.3-19.4)
== END 2021-03-27 12:10 | disposition home or self-care (01) ==
LOC: JONCCHEMO 07:53
PROVIDERS: ATTEND Internal Medicine Hematology & Oncology
DX: Z51.11 Encounter for antineoplastic chemotherapy (principal); C90.00 Multiple myeloma not having achieved remission
CPT/HCPCS: 36415; 80053; 83883; 85025; 96401; J9041

== ENCOUNTER 2021-04-03 10:25 | Day surgery (SDC) | payer OTHER, MEDICARE ==
[2021-04-03 10:08] LABS: BASO % 1.6 % (0-2.0); EOS % 2.8 % (0-4.5); HEMOGLOBIN 12.8 GM/dL (11.7-16.9); LYMPH % 21.9 % (8-40); MCH 31.8 pg (25.7-33.7); MCHC 33.6 g/dl (32.0-35.9); MEAN CELL VOLUME 94.6 fl (80-96); MEAN PLT VOLUME 10.7 fl (7.5-11.1); MONO % 15.1 % (3.8-10.2); NEUT % 58.6 % (42.8-82.8); PLATELET COUNT 143 10^3/uL (134-434); RBC 4.02 M/mm3 (4.00-5.60); RDW 15.4 % (11.9-15.9); WHITE BLOOD COUNT 4.6 K/mm3 (4.0-10.0)
[2021-04-03 10:13] LABS: CALCIUM 8.4 mg/dL (8.5-10.1)
[2021-04-03 10:14] LABS: ALBUMIN 3.5 g/dl (3.4-5.0); BLOOD UREA NITROGEN 17.6 mg/dL (7-18)
[2021-04-03 10:19] LABS: BILIRUBIN,TOTAL 0.5 mg/dL (0.2-1); TOT PROT 6.4 g/dl (6.4-8.2)
[~2021-04-03 10:25] MED LIST: BORTEZOMIB (VELCADE) 2.5 MG/ML SUB-Q INJECTION SQ ONE; DEXAMETHASONE 4 MG TABLET (FP) PO ONE; ONDANSETRON 8 MG TABLET (FP) PO ONE
[2021-04-03 15:42] VITALS: BP 106/59; PULSE 74; TEMP 98.6
== END 2021-04-03 11:15 | disposition home or self-care (01) ==
LOC: JONCCHEMO 10:25
PROVIDERS: ATTEND Internal Medicine Hematology & Oncology
DX: Z51.11 Encounter for antineoplastic chemotherapy (principal); C90.00 Multiple myeloma not having achieved remission
CPT/HCPCS: 36415; 80053; 85025; 96401; J9041

== ENCOUNTER 2021-04-16 08:22 | Day surgery (SDC) | payer OTHER, MEDICARE ==
[2021-04-16 09:06] LABS: BASO % 1.1 % (0-2.0); EOS % 0.6 % (0-4.5); HEMATOCRIT 36.8 % (35.4-49); HEMOGLOBIN 12.6 GM/dL (11.7-16.9); LYMPH % 21.9 % (8-40); MCH 31.8 pg (25.7-33.7); MCHC 34.1 g/dl (32.0-35.9); MEAN CELL VOLUME 93.2 fl (80-96); MEAN PLT VOLUME 8.9 fl (7.5-11.1); MONO % 9.9 % (3.8-10.2); NEUT % 66.5 % (42.8-82.8); PLATELET COUNT 136 10^3/uL (134-434); RBC 3.95 M/mm3 (4.00-5.60); RDW 15.1 % (11.9-15.9)
[2021-04-16 09:26] LABS: ALBUMIN 3.2 g/dl (3.4-5.0); BLOOD UREA NITROGEN 23.6 mg/dL (7-18); CALCIUM 8.4 mg/dL (8.5-10.1)
[2021-04-16 09:31] LABS: BILIRUBIN,TOTAL 0.5 mg/dL (0.2-1); TOT PROT 6.1 g/dl (6.4-8.2)
[2021-04-16] MEDS ORDERED: DENOSUMAB 120 MG/1.7 ML VIAL SQ ONE (10:30)
[2021-04-16] MEDS ORDERED: DEXAMETHASONE 4 MG TABLET (FP) PO ONE (10:45)
[2021-04-16] MEDS ORDERED: ONDANSETRON 8 MG TABLET (FP) PO ONE (11:00)
[2021-04-16] MEDS ORDERED: BORTEZOMIB (VELCADE) 2.5 MG/ML SUB-Q INJECTION SQ ONE (11:30)
[2021-04-16 16:03] VITALS: BP 133/57; PULSE 80; TEMP 97.7
== END 2021-04-16 12:30 | disposition home or self-care (01) ==
LOC: JONCCHEMO 08:22
PROVIDERS: ATTEND Internal Medicine Hematology & Oncology
PROC: 3E01305 Introduction of Other Antineoplastic into Subcutaneous Tissue, Percutaneous Approach (ICD-10-PCS; principal; 2021-04-16)
PROC: 3E013GC Introduction of Other Therapeutic Substance into Subcutaneous Tissue, Percutaneous Approach (ICD-10-PCS; 2021-04-16)
DX: Z51.11 Encounter for antineoplastic chemotherapy (principal); C90.00 Multiple myeloma not having achieved remission
CPT/HCPCS: 36415; 80053; 85025; 96372; 96401; J0897; J9041

== ENCOUNTER 2021-04-23 07:41 | Day surgery (SDC) | payer OTHER, MEDICARE ==
[2021-04-23] MEDS ORDERED: DEXAMETHASONE 4 MG TABLET (FP) PO ONE (10:00)
[2021-04-23] MEDS ORDERED: BORTEZOMIB (VELCADE) 2.5 MG/ML SUB-Q INJECTION SQ ONE (10:00)
[2021-04-23] MEDS ORDERED: ONDANSETRON 8 MG TABLET (FP) PO ONE (10:00)
[2021-04-23 10:10] LABS: BASO % 1.2 % (0-2.0); EOS % 3.5 % (0-4.5); HEMATOCRIT 37.4 % (35.4-49); HEMOGLOBIN 12.6 GM/dL (11.7-16.9); LYMPH % 24.4 % (8-40); MCH 31.9 pg (25.7-33.7); MCHC 33.8 g/dl (32.0-35.9); MEAN CELL VOLUME 94.2 fl (80-96); MEAN PLT VOLUME 9.2 fl (7.5-11.1); MONO % 12.3 % (3.8-10.2); NEUT % 58.6 % (42.8-82.8); PLATELET COUNT 117 10^3/uL (134-434); RBC 3.97 M/mm3 (4.00-5.60); RDW 15.5 % (11.9-15.9); WHITE BLOOD COUNT 4.5 K/mm3 (4.0-10.0)
[2021-04-23 10:31] LABS: BLOOD UREA NITROGEN 23.8 mg/dL (7-18); CALCIUM 8.6 mg/dL (8.5-10.1)
[2021-04-23 10:36] LABS: BILIRUBIN,TOTAL 0.5 mg/dL (0.2-1); TOT PROT 6.1 g/dl (6.4-8.2)
[2021-04-23 10:49] LABS: ALBUMIN 3.4 g/dl (3.4-5.0)
[2021-04-23 15:40] VITALS: BP 133/60; PULSE 77; TEMP 98.4
== END 2021-04-23 12:00 | disposition home or self-care (01) ==
LOC: JONCCHEMO 07:41
PROVIDERS: ATTEND Internal Medicine Hematology & Oncology
DX: Z51.11 Encounter for antineoplastic chemotherapy (principal); C90.00 Multiple myeloma not having achieved remission
CPT/HCPCS: 36415; 80053; 85025; 96401; J9041

== ENCOUNTER 2021-05-01 13:20 | Day surgery (SDC) | payer OTHER, MEDICARE ==
[2021-05-01 12:48] LABS: BASO % 0.8 % (0-2.0); EOS % 1.1 % (0-4.5); HEMATOCRIT 40.1 % (35.4-49); HEMOGLOBIN 13.1 GM/dL (11.7-16.9); LYMPH % 13.9 % (8-40); MCH 31.2 pg (25.7-33.7); MCHC 32.7 g/dl (32.0-35.9); MEAN CELL VOLUME 95.5 fl (80-96); MEAN PLT VOLUME 10.9 fl (7.5-11.1); MONO % 13.7 % (3.8-10.2); NEUT % 70.5 % (42.8-82.8); PLATELET COUNT 132 10^3/uL (134-434); RDW 14.9 % (11.9-15.9); WHITE BLOOD COUNT 6.4 K/mm3 (4.0-10.0)
[2021-05-01 13:13] LABS: ALBUMIN 3.6 g/dl (3.4-5.0); BLOOD UREA NITROGEN 21.8 mg/dL (7-18); CALCIUM 8.5 mg/dL (8.5-10.1)
[2021-05-01 13:16] LABS: CREATININE 1.1 mg/dL (0.55-1.3)
[2021-05-01 13:18] LABS: BILIRUBIN,TOTAL 0.6 mg/dL (0.2-1); TOT PROT 6.4 g/dl (6.4-8.2)
[2021-05-01] MEDS ORDERED: ONDANSETRON 8 MG TABLET (FP) PO ONE (13:45)
[2021-05-01] MEDS ORDERED: DEXAMETHASONE 4 MG TABLET (FP) PO ONE (13:45)
[2021-05-01] MEDS ORDERED: BORTEZOMIB (VELCADE) 2.5 MG/ML SUB-Q INJECTION SQ ONE (13:45)
[2021-05-01 16:43] VITALS: BP 106/55; PULSE 78; TEMP 98.2
[2021-05-02 15:06] LABS: FREE KAPPA,SERUM 31.1 mg/L (3.3-19.4)
== END 2021-05-01 15:00 | disposition home or self-care (01) ==
LOC: JONCCHEMO 13:20
PROVIDERS: ATTEND Internal Medicine Hematology & Oncology
DX: Z51.11 Encounter for antineoplastic chemotherapy (principal); C90.00 Multiple myeloma not having achieved remission
CPT/HCPCS: 36415; 80053; 82784; 83883; 85025; 85651; 86140; 96401; J9041

== ENCOUNTER 2021-05-08 09:55 | Day surgery (SDC) | payer OTHER, MEDICARE ==
[2021-05-08] MEDS ORDERED: ONDANSETRON 8 MG TABLET (FP) PO ONE (11:00)
[2021-05-08] MEDS ORDERED: BORTEZOMIB (VELCADE) 2.5 MG/ML SUB-Q INJECTION SQ ONE ×2 (11:00→13:30)
[2021-05-08] MEDS ORDERED: DEXAMETHASONE 4 MG TABLET (FP) PO ONE (11:00)
[2021-05-08 11:08] LABS: HEMATOCRIT 37.9 % (35.4-49); HEMOGLOBIN 12.5 GM/dL (11.7-16.9); MEAN CELL VOLUME 95.4 fl (80-96); RBC 3.97 M/mm3 (4.00-5.60); WHITE BLOOD COUNT 8.5 K/mm3 (4.0-10.0)
[2021-05-08 11:09] LABS: BASO % 0.4 % (0-2.0); EOS % 0.2 % (0-4.5); LYMPH % 12.5 % (8-40); MCH 31.5 pg (25.7-33.7); MEAN PLT VOLUME 10.2 fl (7.5-11.1); MONO % 9.9 % (3.8-10.2); PLATELET COUNT 100 10^3/uL (134-434); RDW 15.1 % (11.9-15.9)
[2021-05-08 11:31] LABS: CALCIUM 8.7 mg/dL (8.5-10.1)
[2021-05-08 11:32] LABS: ALBUMIN 3.5 g/dl (3.4-5.0); BLOOD UREA NITROGEN 22.9 mg/dL (7-18)
[2021-05-08 11:37] LABS: BILIRUBIN,TOTAL 0.7 mg/dL (0.2-1); TOT PROT 6.2 g/dl (6.4-8.2)
[2021-05-08 17:01] VITALS: BP 111/54; PULSE 75; TEMP 98.5
== END 2021-05-08 13:15 | disposition home or self-care (01) ==
LOC: JONCCHEMO 09:55
PROVIDERS: ATTEND Internal Medicine Hematology & Oncology
DX: Z51.11 Encounter for antineoplastic chemotherapy (principal); C90.00 Multiple myeloma not having achieved remission
CPT/HCPCS: 36415; 80053; 85025; 96401; J9041

== ENCOUNTER 2021-05-14 07:56 | Day surgery (SDC) | payer OTHER, MEDICARE ==
[2021-05-14 09:33] LABS: EOS % 3.7 % (0-4.5); HEMATOCRIT 39.1 % (35.4-49); HEMOGLOBIN 12.7 GM/dL (11.7-16.9); LYMPH % 26.4 % (8-40); MCH 31.2 pg (25.7-33.7); MCHC 32.5 g/dl (32.0-35.9); MEAN CELL VOLUME 95.8 fl (80-96); MEAN PLT VOLUME 9.9 fl (7.5-11.1); MONO % 11.7 % (3.8-10.2); NEUT % 57.2 % (42.8-82.8); PLATELET COUNT 119 10^3/uL (134-434); RBC 4.08 M/mm3 (4.00-5.60); RDW 14.9 % (11.9-15.9); WHITE BLOOD COUNT 3.2 K/mm3 (4.0-10.0)
[2021-05-14 10:07] LABS: CALCIUM 8.9 mg/dL (8.5-10.1)
[2021-05-14 10:08] LABS: ALBUMIN 3.6 g/dl (3.4-5.0); BLOOD UREA NITROGEN 21.1 mg/dL (7-18)
[2021-05-14 10:13] LABS: BILIRUBIN,TOTAL 0.5 mg/dL (0.2-1); TOT PROT 6.4 g/dl (6.4-8.2)
[2021-05-14] MEDS ORDERED: DENOSUMAB 120 MG/1.7 ML VIAL SQ ONE (10:30)
[2021-05-14] MEDS ORDERED: DEXAMETHASONE 4 MG TABLET (FP) PO ONE (11:00)
[2021-05-14] MEDS ORDERED: BORTEZOMIB (VELCADE) 2.5 MG/ML SUB-Q INJECTION SQ ONE (11:00)
[2021-05-14] MEDS ORDERED: ONDANSETRON 8 MG TABLET (FP) PO ONE (11:00)
[2021-05-14 15:20] VITALS: TEMP 98.5
[2021-05-14 15:21] VITALS: BP 112/57; PULSE 71
== END 2021-05-14 13:00 | disposition home or self-care (01) ==
LOC: JONCCHEMO 07:56
PROVIDERS: ATTEND Internal Medicine Hematology & Oncology
PROC: 3E01305 Introduction of Other Antineoplastic into Subcutaneous Tissue, Percutaneous Approach (ICD-10-PCS; principal; 2021-05-14)
PROC: 3E013GC Introduction of Other Therapeutic Substance into Subcutaneous Tissue, Percutaneous Approach (ICD-10-PCS; 2021-05-14)
DX: Z51.11 Encounter for antineoplastic chemotherapy (principal); C90.00 Multiple myeloma not having achieved remission
CPT/HCPCS: 36415; 80053; 85025; 96372; 96401; J0897; J9041

== ENCOUNTER → 2021-05-21 | Day surgery (SDC) | payer OTHER, MEDICARE ==
[2021-05-28 10:32] LABS: BASO % 1.5 % (0-2.0); EOS % 2.2 % (0-4.5); HEMATOCRIT 37.9 % (35.4-49); HEMOGLOBIN 12.6 GM/dL (11.7-16.9); LYMPH % 21.7 % (8-40); MCH 31.7 pg (25.7-33.7); MCHC 33.2 g/dl (32.0-35.9); MEAN CELL VOLUME 95.5 fl (80-96); MEAN PLT VOLUME 10.1 fl (7.5-11.1); MONO % 13.9 % (3.8-10.2); NEUT % 60.7 % (42.8-82.8); PLATELET COUNT 122 10^3/uL (134-434); RBC 3.97 M/mm3 (4.00-5.60); RDW 14.8 % (11.9-15.9); WHITE BLOOD COUNT 3.9 K/mm3 (4.0-10.0)
[2021-05-28 10:52] LABS: CALCIUM 8.5 mg/dL (8.5-10.1)
[2021-05-28 10:53] LABS: ALBUMIN 3.6 g/dl (3.4-5.0); BLOOD UREA NITROGEN 16.7 mg/dL (7-18)
[2021-05-28 10:57] LABS: BILIRUBIN,TOTAL 0.4 mg/dL (0.2-1); TOT PROT 6.2 g/dl (6.4-8.2)
== END | disposition home or self-care (01) ==
LOC: JONCCHEMO 07:39
PROVIDERS: ATTEND Internal Medicine Hematology & Oncology
DX: Z53.8 Procedure and treatment not carried out for other reasons (principal)
CPT/HCPCS: 36415; 80053; 85025

== ENCOUNTER 2021-05-28 08:01 | Day surgery (SDC) | payer OTHER, MEDICARE ==
[2021-05-28] MEDS ORDERED: ONDANSETRON 8 MG TABLET (FP) PO ONE (11:00)
[2021-05-28] MEDS ORDERED: DEXAMETHASONE 4 MG TABLET (FP) PO ONE (11:00)
[2021-05-28] MEDS ORDERED: BORTEZOMIB (VELCADE) 2.5 MG/ML SUB-Q INJECTION SQ ONE (11:00)
[2021-05-28 16:22] VITALS: BP 114/51; PULSE 70; TEMP 98.6
== END 2021-05-28 12:50 | disposition home or self-care (01) ==
LOC: JONCCHEMO 08:01
PROVIDERS: ATTEND Internal Medicine Hematology & Oncology
DX: Z51.11 Encounter for antineoplastic chemotherapy (principal); C90.00 Multiple myeloma not having achieved remission
CPT/HCPCS: 96401; J9041

== ENCOUNTER 2021-06-02 14:09 | Emergency (ER) | payer OTHER, MEDICARE ==
[2021-06-02 14:46] VITALS: BP 146/69; PULSE 80; TEMP 98; BMI 27.1
== END 2021-06-02 17:03 | disposition home or self-care (01) ==
LOC: JERFT 14:09
DX: S43.402A Unspecified sprain of left shoulder joint, initial encounter (principal); S20.20XA Contusion of thorax, unspecified, initial encounter; W19.XXXA Unspecified fall, initial encounter; Y92.9 Unspecified place or not applicable
CPT/HCPCS: 71111-TC-FY; 73030-TC-LT-FY; 73523-TC-FY; 99284-25

== ENCOUNTER 2021-06-05 07:12 | Day surgery (SDC) | payer OTHER, MEDICARE ==
[2021-06-05] MEDS ORDERED: ONDANSETRON 8 MG TABLET (FP) PO ONE (11:30)
[2021-06-05] MEDS ORDERED: DEXAMETHASONE 4 MG TABLET (FP) PO ONE (11:30)
[2021-06-05] MEDS ORDERED: BORTEZOMIB (VELCADE) 2.5 MG/ML SUB-Q INJECTION SQ ONE (12:00)
[2021-06-05 12:39] LABS: BASO % 1.1 % (0-2.0); EOS % 0.8 % (0-4.5); HEMATOCRIT 36.1 % (35.4-49); HEMOGLOBIN 12.3 GM/dL (11.7-16.9); LYMPH % 30.4 % (8-40); MCH 32.5 pg (25.7-33.7); MCHC 34.1 g/dl (32.0-35.9); MEAN CELL VOLUME 95.2 fl (80-96); MEAN PLT VOLUME 9.2 fl (7.5-11.1); MONO % 16.7 % (3.8-10.2); PLATELET COUNT 147 10^3/uL (134-434); RDW 14.7 % (11.9-15.9); WHITE BLOOD COUNT 4.8 K/mm3 (4.0-10.0)
[2021-06-05 13:06] LABS: CALCIUM 8.9 mg/dL (8.5-10.1)
[2021-06-05 13:07] LABS: ALBUMIN 3.5 g/dl (3.4-5.0); BLOOD UREA NITROGEN 25.5 mg/dL (7-18)
[2021-06-05 13:11] LABS: BILIRUBIN,TOTAL 0.5 mg/dL (0.2-1); TOT PROT 6.3 g/dl (6.4-8.2)
[2021-06-05 18:49] VITALS: BP 122/69; PULSE 80; TEMP 98.1
== END 2021-06-05 13:30 | disposition home or self-care (01) ==
LOC: JONCCHEMO 07:12
PROVIDERS: ATTEND Internal Medicine Hematology & Oncology
DX: Z51.11 Encounter for antineoplastic chemotherapy (principal); C90.00 Multiple myeloma not having achieved remission
CPT/HCPCS: 36415; 80053; 85025; 96401; J9041

== ENCOUNTER 2021-06-11 08:43 | Day surgery (SDC) | payer OTHER, MEDICARE ==
[2021-06-11 10:35] LABS: EOS % 1.7 % (0-4.5); HEMATOCRIT 38.5 % (35.4-49); LYMPH % 22.3 % (8-40); MCH 32.3 pg (25.7-33.7); MCHC 33.8 g/dl (32.0-35.9); MEAN CELL VOLUME 95.6 fl (80-96); MEAN PLT VOLUME 9.9 fl (7.5-11.1); MONO % 10.4 % (3.8-10.2); NEUT % 64.6 % (42.8-82.8); PLATELET COUNT 135 10^3/uL (134-434); RBC 4.03 M/mm3 (4.00-5.60); RDW 15.4 % (11.9-15.9); WHITE BLOOD COUNT 5.5 K/mm3 (4.0-10.0)
[2021-06-11 10:49] LABS: CALCIUM 8.8 mg/dL (8.5-10.1)
[2021-06-11 10:50] LABS: ALBUMIN 3.6 g/dl (3.4-5.0); BLOOD UREA NITROGEN 19.9 mg/dL (7-18)
[2021-06-11 10:53] LABS: CREATININE 1.1 mg/dL (0.55-1.3)
[2021-06-11 10:54] LABS: BILIRUBIN,TOTAL 0.4 mg/dL (0.2-1)
[2021-06-11 10:55] LABS: TOT PROT 6.6 g/dl (6.4-8.2)
[2021-06-11] MEDS ORDERED: DEXAMETHASONE 4 MG TABLET (FP) PO ONE (11:45)
[2021-06-11] MEDS ORDERED: BORTEZOMIB (VELCADE) 2.5 MG/ML SUB-Q INJECTION SQ ONE (11:45)
[2021-06-11] MEDS ORDERED: ONDANSETRON 8 MG TABLET (FP) PO ONE (11:45)
[2021-06-11 15:23] VITALS: BP 139/64; PULSE 95; TEMP 98.3
== END 2021-06-11 12:30 | disposition home or self-care (01) ==
LOC: JONCCHEMO 08:43
PROVIDERS: ATTEND Internal Medicine Hematology & Oncology
DX: Z51.11 Encounter for antineoplastic chemotherapy (principal); C90.00 Multiple myeloma not having achieved remission
CPT/HCPCS: 36415; 80053; 85025; 96401; J9041

== ENCOUNTER 2021-06-18 07:44 | Day surgery (SDC) | payer OTHER, MEDICARE ==
[2021-06-18] MEDS ORDERED: DEXAMETHASONE 4 MG TABLET (FP) PO ONE ×2 (11:00)
[2021-06-18] MEDS ORDERED: BORTEZOMIB (VELCADE) 2.5 MG/ML SUB-Q INJECTION SQ ONE ×2 (11:00)
[2021-06-18] MEDS ORDERED: ONDANSETRON 8 MG TABLET (FP) PO ONE ×2 (11:00)
[2021-06-18 11:12] LABS: BASO % 0.6 % (0-2.0); EOS % 1.1 % (0-4.5); HEMATOCRIT 38.5 % (35.4-49); HEMOGLOBIN 12.8 GM/dL (11.7-16.9); LYMPH % 15.9 % (8-40); MCHC 33.3 g/dl (32.0-35.9); MEAN CELL VOLUME 96.1 fl (80-96); MONO % 15.2 % (3.8-10.2); NEUT % 67.2 % (42.8-82.8); PLATELET COUNT 122 10^3/uL (134-434); RBC 4.01 M/mm3 (4.00-5.60); RDW 14.6 % (11.9-15.9); WHITE BLOOD COUNT 7.2 K/mm3 (4.0-10.0)
[2021-06-18 11:16] VITALS: BP 140/69; PULSE 87; TEMP 98.3
[2021-06-18 11:37] LABS: ALBUMIN 3.7 g/dl (3.4-5.0); CALCIUM 9.1 mg/dL (8.5-10.1)
[2021-06-18 11:39] LABS: BLOOD UREA NITROGEN 24.1 mg/dL (7-18)
[2021-06-18 11:43] LABS: BILIRUBIN,TOTAL 0.5 mg/dL (0.2-1); TOT PROT 6.4 g/dl (6.4-8.2)
== END 2021-06-18 13:10 | disposition home or self-care (01) ==
LOC: JONCCHEMO 07:44
PROVIDERS: ATTEND Internal Medicine Hematology & Oncology
DX: Z51.11 Encounter for antineoplastic chemotherapy (principal); C90.00 Multiple myeloma not having achieved remission
CPT/HCPCS: 36415; 80053; 85025; 96401; J9041

== ENCOUNTER 2021-06-25 07:06 | Day surgery (SDC) | payer OTHER, MEDICARE ==
[2021-06-25] MEDS ORDERED: ONDANSETRON 8 MG TABLET (FP) PO ONE (10:00)
[2021-06-25] MEDS ORDERED: BORTEZOMIB (VELCADE) 2.5 MG/ML SUB-Q INJECTION SQ ONE (10:00)
[2021-06-25] MEDS ORDERED: DEXAMETHASONE 4 MG TABLET (FP) PO ONE (10:00)
[2021-06-25 14:17] LABS: BASO % 0.7 % (0-2.0); EOS % 1.6 % (0-4.5); HEMATOCRIT 38.3 % (35.4-49); HEMOGLOBIN 12.6 GM/dL (11.7-16.9); LYMPH % 26.1 % (8-40); MCH 31.5 pg (25.7-33.7); MEAN CELL VOLUME 95.5 fl (80-96); MEAN PLT VOLUME 9.7 fl (7.5-11.1); MONO % 19.1 % (3.8-10.2); NEUT % 52.5 % (42.8-82.8); PLATELET COUNT 112 10^3/uL (134-434); RBC 4.01 M/mm3 (4.00-5.60)
[2021-06-25] MEDS ORDERED: DENOSUMAB 120 MG/1.7 ML VIAL SQ ONE (14:20)
[2021-06-25 14:39] LABS: ALBUMIN 3.5 g/dl (3.4-5.0); BLOOD UREA NITROGEN 19.6 mg/dL (7-18)
[2021-06-25 14:40] VITALS: BP 130/61; PULSE 76; TEMP 97.7
[2021-06-25 14:42] LABS: CREATININE 1.1 mg/dL (0.55-1.3)
[2021-06-25 14:44] LABS: BILIRUBIN,TOTAL 0.4 mg/dL (0.2-1); TOT PROT 6.3 g/dl (6.4-8.2)
== END 2021-06-25 15:15 | disposition home or self-care (01) ==
LOC: JONCCHEMO 07:06
PROVIDERS: ATTEND Internal Medicine Hematology & Oncology
PROC: 3E01305 Introduction of Other Antineoplastic into Subcutaneous Tissue, Percutaneous Approach (ICD-10-PCS; principal; 2021-06-25)
PROC: 3E013GC Introduction of Other Therapeutic Substance into Subcutaneous Tissue, Percutaneous Approach (ICD-10-PCS; 2021-06-25)
DX: Z51.11 Encounter for antineoplastic chemotherapy (principal); C90.00 Multiple myeloma not having achieved remission
CPT/HCPCS: 36415; 80053; 85025; 96372; 96401; J0897; J9041

== ENCOUNTER 2021-07-02 08:19 | Day surgery (SDC) | payer OTHER, MEDICARE ==
[2021-07-02] MEDS ORDERED: ONDANSETRON 8 MG TABLET (FP) PO ONE (10:00)
[2021-07-02] MEDS ORDERED: DEXAMETHASONE 4 MG TABLET (FP) PO ONE (10:00)
[2021-07-02] MEDS ORDERED: BORTEZOMIB (VELCADE) 2.5 MG/ML SUB-Q INJECTION SQ ONE (10:30)
[2021-07-02 11:04] LABS: BASO % 0.3 % (0-2.0); EOS % 1.6 % (0-4.5); HEMATOCRIT 39.2 % (35.4-49); HEMOGLOBIN 13.1 GM/dL (11.7-16.9); LYMPH % 18.2 % (8-40); MCH 31.9 pg (25.7-33.7); MCHC 33.3 g/dl (32.0-35.9); MEAN CELL VOLUME 95.8 fl (80-96); MEAN PLT VOLUME 10.8 fl (7.5-11.1); MONO % 12.7 % (3.8-10.2); NEUT % 67.2 % (42.8-82.8); PLATELET COUNT 134 10^3/uL (134-434); RBC 4.09 M/mm3 (4.00-5.60); RDW 15.1 % (11.9-15.9); WHITE BLOOD COUNT 5.6 K/mm3 (4.0-10.0)
[2021-07-02 11:30] LABS: CALCIUM 8.8 mg/dL (8.5-10.1)
[2021-07-02 11:31] LABS: ALBUMIN 3.6 g/dl (3.4-5.0)
[2021-07-02 11:34] LABS: CREATININE 1.1 mg/dL (0.55-1.3)
[2021-07-02 11:35] LABS: BILIRUBIN,TOTAL 0.5 mg/dL (0.2-1); TOT PROT 6.8 g/dl (6.4-8.2)
[2021-07-02 16:26] VITALS: BP 139/59; PULSE 88; TEMP 98.5
== END 2021-07-02 12:40 | disposition home or self-care (01) ==
LOC: JONCCHEMO 08:19
PROVIDERS: ATTEND Internal Medicine Hematology & Oncology
DX: Z51.11 Encounter for antineoplastic chemotherapy (principal); C90.00 Multiple myeloma not having achieved remission
CPT/HCPCS: 36415; 80053; 85025; 96402; J9041

== ENCOUNTER 2021-07-09 08:13 | Day surgery (SDC) | payer OTHER, MEDICARE ==
[2021-07-09] MEDS ORDERED: ONDANSETRON 8 MG TABLET (FP) PO ONE (11:00)
[2021-07-09] MEDS ORDERED: DEXAMETHASONE 4 MG TABLET (FP) PO ONE (11:00)
[2021-07-09] MEDS ORDERED: BORTEZOMIB (VELCADE) 2.5 MG/ML SUB-Q INJECTION SQ ONE (11:00)
[2021-07-09 12:23] LABS: BASO % 0.5 % (0-2.0); EOS % 0.2 % (0-4.5); HEMOGLOBIN 12.3 GM/dL (11.7-16.9); LYMPH % 8.7 % (8-40); MCH 31.7 pg (25.7-33.7); MCHC 33.3 g/dl (32.0-35.9); MEAN CELL VOLUME 95.2 fl (80-96); MEAN PLT VOLUME 9.5 fl (7.5-11.1); MONO % 17.6 % (3.8-10.2); PLATELET COUNT 129 10^3/uL (134-434); RBC 3.89 M/mm3 (4.00-5.60); RDW 15.1 % (11.9-15.9); WHITE BLOOD COUNT 6.7 K/mm3 (4.0-10.0)
[2021-07-09 12:46] LABS: ALBUMIN 3.6 g/dl (3.4-5.0); CALCIUM 8.6 mg/dL (8.5-10.1)
[2021-07-09 12:47] LABS: BLOOD UREA NITROGEN 26.4 mg/dL (7-18)
[2021-07-09 12:50] LABS: CREATININE 0.9 mg/dL (0.55-1.3)
[2021-07-09 12:51] LABS: BILIRUBIN,TOTAL 0.5 mg/dL (0.2-1); TOT PROT 6.5 g/dl (6.4-8.2)
[2021-07-09 16:20] VITALS: BP 106/54; PULSE 75; TEMP 97.8
== END 2021-07-09 13:42 | disposition home or self-care (01) ==
LOC: JONCCHEMO 08:13
PROVIDERS: ATTEND Internal Medicine Hematology & Oncology
DX: Z51.11 Encounter for antineoplastic chemotherapy (principal); C90.00 Multiple myeloma not having achieved remission
CPT/HCPCS: 36415; 80053; 85025; 96401; J9041

== ENCOUNTER 2021-07-17 07:41 | Day surgery (SDC) | payer OTHER, MEDICARE ==
[2021-07-17] MEDS ORDERED: BORTEZOMIB (VELCADE) 2.5 MG/ML SUB-Q INJECTION SQ ONE (10:00)
[2021-07-17] MEDS ORDERED: ONDANSETRON 8 MG TABLET (FP) PO ONE (10:00)
[2021-07-17] MEDS ORDERED: DEXAMETHASONE 4 MG TABLET (FP) PO ONE (10:00)
[2021-07-17 14:11] LABS: BASO % 0.2 % (0-2.0); EOS % 0.8 % (0-4.5); HEMATOCRIT 38.4 % (35.4-49); LYMPH % 11.7 % (8-40); MCH 32.5 pg (25.7-33.7); MEAN CELL VOLUME 95.5 fl (80-96); MEAN PLT VOLUME 10.1 fl (7.5-11.1); MONO % 13.4 % (3.8-10.2); NEUT % 73.9 % (42.8-82.8); PLATELET COUNT 85 10^3/uL (134-434); RBC 4.02 M/mm3 (4.00-5.60); RDW 15.6 % (11.9-15.9); WHITE BLOOD COUNT 9.2 K/mm3 (4.0-10.0)
[2021-07-17 14:22] LABS: ALBUMIN 3.6 g/dl (3.4-5.0); CALCIUM 8.9 mg/dL (8.5-10.1)
[2021-07-17 14:23] LABS: BLOOD UREA NITROGEN 23.4 mg/dL (7-18)
[2021-07-17 14:26] LABS: CREATININE 0.9 mg/dL (0.55-1.3)
[2021-07-17 14:27] LABS: BILIRUBIN,TOTAL 0.8 mg/dL (0.2-1); TOT PROT 6.5 g/dl (6.4-8.2)
[2021-07-17 17:46] VITALS: BP 129/68; PULSE 93; TEMP 98.2
== END 2021-07-17 14:50 | disposition home or self-care (01) ==
LOC: JONCCHEMO 07:41
PROVIDERS: ATTEND Internal Medicine Hematology & Oncology
DX: Z51.11 Encounter for antineoplastic chemotherapy (principal); C90.00 Multiple myeloma not having achieved remission
CPT/HCPCS: 36415; 80053; 85025; 96401; J9041

== ENCOUNTER → 2021-07-23 | Day surgery (SDC) | payer OTHER, MEDICARE ==
[2021-07-23 12:12] LABS: BASO % 0.4 % (0-2.0); EOS % 1.2 % (0-4.5); HEMATOCRIT 35.2 % (35.4-49); HEMOGLOBIN 11.8 GM/dL (11.7-16.9); LYMPH % 9.9 % (8-40); MCH 32.3 pg (25.7-33.7); MCHC 33.6 g/dl (32.0-35.9); MEAN CELL VOLUME 96.1 fl (80-96); MONO % 14.4 % (3.8-10.2); NEUT % 74.1 % (42.8-82.8); PLATELET COUNT 56 10^3/uL (134-434); RBC 3.66 M/mm3 (4.00-5.60); RDW 15.6 % (11.9-15.9)
[2021-07-23 12:33] LABS: BLOOD UREA NITROGEN 18.2 mg/dL (7-18); CALCIUM 7.9 mg/dL (8.5-10.1)
[2021-07-23 12:34] LABS: ALBUMIN 2.9 g/dl (3.4-5.0)
[2021-07-23 12:38] LABS: BILIRUBIN,TOTAL 0.5 mg/dL (0.2-1)
[2021-07-23 12:39] LABS: TOT PROT 5.9 g/dl (6.4-8.2)
== END | disposition home or self-care (01) ==
LOC: JONCCHEMO 07:26
PROVIDERS: ATTEND Internal Medicine Hematology & Oncology
DX: Z53.8 Procedure and treatment not carried out for other reasons (principal)
CPT/HCPCS: 36415; 80053; 85025

== ENCOUNTER 2021-07-31 08:18 | Day surgery (SDC) | payer OTHER, MEDICARE ==
[2021-07-31] MEDS ORDERED: ONDANSETRON 8 MG TABLET (FP) PO ONE (10:00)
[2021-07-31] MEDS ORDERED: DEXAMETHASONE 4 MG TABLET (FP) PO ONE (10:00)
[2021-07-31] MEDS ORDERED: BORTEZOMIB (VELCADE) 2.5 MG/ML SUB-Q INJECTION SQ ONE (10:00)
[2021-07-31 12:37] LABS: BASO % 1.6 % (0-2.0); EOS % 0.4 % (0-4.5); HEMATOCRIT 33.2 % (35.4-49); HEMOGLOBIN 11.2 GM/dL (11.7-16.9); LYMPH % 18.3 % (8-40); MCH 32.5 pg (25.7-33.7); MCHC 33.9 g/dl (32.0-35.9); MEAN PLT VOLUME 9.1 fl (7.5-11.1); MONO % 15.8 % (3.8-10.2); NEUT % 63.9 % (42.8-82.8); PLATELET COUNT 134 10^3/uL (134-434); RBC 3.46 M/mm3 (4.00-5.60); RDW 15.9 % (11.9-15.9); WHITE BLOOD COUNT 5.6 K/mm3 (4.0-10.0)
[2021-07-31 12:57] LABS: CALCIUM 8.4 mg/dL (8.5-10.1)
[2021-07-31 12:58] LABS: ALBUMIN 2.9 g/dl (3.4-5.0)
[2021-07-31 13:00] LABS: CREATININE 1.2 mg/dL (0.55-1.3)
[2021-07-31 13:03] LABS: BILIRUBIN,TOTAL 0.4 mg/dL (0.2-1); TOT PROT 6.3 g/dl (6.4-8.2)
[2021-07-31] MEDS ORDERED: DENOSUMAB 120 MG/1.7 ML VIAL SQ ONE (14:00)
[2021-07-31 19:02] VITALS: BP 110/54; PULSE 82; TEMP 98.4
[2021-08-04 17:07] LABS: FREE KAPPA,SERUM 25.5 mg/L (3.3-19.4)
== END 2021-07-31 14:30 | disposition home or self-care (01) ==
LOC: JONCCHEMO 08:18
PROVIDERS: ATTEND Internal Medicine Hematology & Oncology
PROC: 3E01305 Introduction of Other Antineoplastic into Subcutaneous Tissue, Percutaneous Approach (ICD-10-PCS; principal; 2021-07-31)
PROC: 3E013GC Introduction of Other Therapeutic Substance into Subcutaneous Tissue, Percutaneous Approach (ICD-10-PCS; 2021-07-31)
DX: Z51.11 Encounter for antineoplastic chemotherapy (principal); C90.00 Multiple myeloma not having achieved remission
CPT/HCPCS: 36415; 80053; 82784; 83883; 85025; 96372; 96401; J0897; J9041

== ENCOUNTER 2021-08-14 07:42 | Day surgery (SDC) | payer OTHER, MEDICARE ==
[2021-08-14 07:51] LABS: BASO % 0.7 % (0-2.0); EOS % 2.8 % (0-4.5); HEMATOCRIT 30.7 % (35.4-49); HEMOGLOBIN 10.2 GM/dL (11.7-16.9); LYMPH % 18.3 % (8-40); MCH 32.3 pg (25.7-33.7); MCHC 33.1 g/dl (32.0-35.9); MEAN CELL VOLUME 97.6 fl (80-96); MEAN PLT VOLUME 9.5 fl (7.5-11.1); MONO % 16.7 % (3.8-10.2); NEUT % 61.5 % (42.8-82.8); PLATELET COUNT 81 10^3/uL (134-434); RBC 3.14 M/mm3 (4.00-5.60); RDW 16.5 % (11.9-15.9); WHITE BLOOD COUNT 4.5 K/mm3 (4.0-10.0)
[2021-08-14 08:07] LABS: CALCIUM 8.3 mg/dL (8.5-10.1)
[2021-08-14 08:08] LABS: ALBUMIN 2.9 g/dl (3.4-5.0); BLOOD UREA NITROGEN 21.2 mg/dL (7-18)
[2021-08-14 08:12] LABS: TOT PROT 6.5 g/dl (6.4-8.2)
[2021-08-14 08:13] LABS: BILIRUBIN,TOTAL 0.4 mg/dL (0.2-1)
[2021-08-14] MEDS ORDERED: BORTEZOMIB (VELCADE) 2.5 MG/ML SUB-Q INJECTION SQ ONE (09:00)
[2021-08-14] MEDS ORDERED: ONDANSETRON 8 MG TABLET (FP) PO ONE (10:00)
[2021-08-14] MEDS ORDERED: DEXAMETHASONE 4 MG TABLET (FP) PO ONE (10:00)
[2021-08-14 11:00] VITALS: BP 104/55; PULSE 74; TEMP 98.4
== END 2021-08-14 09:05 | disposition home or self-care (01) ==
LOC: JONCCHEMO 07:42
PROVIDERS: ATTEND Internal Medicine Hematology & Oncology
DX: Z51.11 Encounter for antineoplastic chemotherapy (principal); C90.00 Multiple myeloma not having achieved remission
CPT/HCPCS: 36415; 80053; 85025; 96401; J9041

== ENCOUNTER 2021-08-21 06:55 | Day surgery (SDC) | payer OTHER, MEDICARE ==
[2021-08-21] MEDS ORDERED: BORTEZOMIB (VELCADE) 2.5 MG/ML SUB-Q INJECTION SQ ONE (10:00)
[2021-08-21] MEDS ORDERED: ONDANSETRON 8 MG TABLET (FP) PO ONE (10:00)
[2021-08-21] MEDS ORDERED: DEXAMETHASONE 4 MG TABLET (FP) PO ONE (10:00)
[2021-08-21 12:48] LABS: HEMATOCRIT 29.3 % (35.4-49); HEMOGLOBIN 9.9 GM/dL (11.7-16.9); MCH 32.9 pg (25.7-33.7); MCHC 33.9 g/dl (32.0-35.9); MEAN PLT VOLUME 10.3 fl (7.5-11.1); PLATELET COUNT 77 10^3/uL (134-434); RBC 3.02 M/mm3 (4.00-5.60); RDW 17.2 % (11.9-15.9); WHITE BLOOD COUNT 3.1 K/mm3 (4.0-10.0)
[2021-08-21 13:11] LABS: BLOOD UREA NITROGEN 21.6 mg/dL (7-18)
[2021-08-21 13:14] LABS: CREATININE 1.2 mg/dL (0.55-1.3)
[2021-08-21 13:16] LABS: TOT PROT 6.6 g/dl (6.4-8.2)
[2021-08-21 13:21] LABS: BILIRUBIN,TOTAL 0.4 mg/dL (0.2-1)
[2021-08-21 13:43] LABS: ANISOCYTOSIS 0; MACROCYTOSIS 0
[2021-08-21 17:22] VITALS: BP 105/51; PULSE 79; TEMP 98.8
== END 2021-08-21 14:30 | disposition home or self-care (01) ==
LOC: JONCCHEMO 06:55
PROVIDERS: ATTEND Internal Medicine Hematology & Oncology
DX: Z51.11 Encounter for antineoplastic chemotherapy (principal); C90.00 Multiple myeloma not having achieved remission
CPT/HCPCS: 36415; 80053; 85025; 96401; J9041

== ENCOUNTER 2021-08-28 06:47 | Day surgery (SDC) | payer OTHER, MEDICARE ==
[2021-08-28] MEDS ORDERED: DENOSUMAB 120 MG/1.7 ML VIAL SQ ONE (09:00)
[2021-08-28 09:08] LABS: HEMATOCRIT 29.2 % (35.4-49); HEMOGLOBIN 9.9 GM/dL (11.7-16.9); MCH 33.3 pg (25.7-33.7); MEAN CELL VOLUME 97.9 fl (80-96); MEAN PLT VOLUME 10.2 fl (7.5-11.1); PLATELET COUNT 117 10^3/uL (134-434); RBC 2.98 M/mm3 (4.00-5.60); RDW 17.7 % (11.9-15.9); WHITE BLOOD COUNT 7.7 K/mm3 (4.0-10.0)
[2021-08-28 09:29] LABS: CALCIUM 8.5 mg/dL (8.5-10.1)
[2021-08-28 09:30] LABS: BLOOD UREA NITROGEN 33.4 mg/dL (7-18)
[2021-08-28 09:34] LABS: BILIRUBIN,TOTAL 0.3 mg/dL (0.2-1); TOT PROT 6.8 g/dl (6.4-8.2)
[2021-08-28 09:40] LABS: ANISOCYTOSIS 1+; MACROCYTOSIS 1+
[2021-08-28 16:12] VITALS: BP 105/55; PULSE 78; TEMP 98
== END 2021-08-28 09:40 | disposition home or self-care (01) ==
LOC: JONCCHEMO 06:47
PROVIDERS: ATTEND Internal Medicine Hematology & Oncology
PROC: 3E013GC Introduction of Other Therapeutic Substance into Subcutaneous Tissue, Percutaneous Approach (ICD-10-PCS; principal; 2021-08-28)
DX: C90.00 Multiple myeloma not having achieved remission (principal); Z76.89 Persons encountering health services in other specified circumstances
CPT/HCPCS: 36415; 80053; 85025; 96372; J0897

== ENCOUNTER 2021-09-04 07:46 | Day surgery (SDC) | payer OTHER, MEDICARE ==
[~2021-09-04 07:46] MED LIST changes: -BORTEZOMIB (VELCADE) 2.5 MG/ML SUB-Q INJECTION SQ ONE; -ONDANSETRON 8 MG TABLET (FP) PO ONE
[2021-09-04 09:01] LABS: EOS % 1.9 % (0-4.5); HEMATOCRIT 31.1 % (35.4-49); HEMOGLOBIN 10.4 GM/dL (11.7-16.9); LYMPH % 12.9 % (8-40); MCHC 33.4 g/dl (32.0-35.9); MEAN PLT VOLUME 10.9 fl (7.5-11.1); MONO % 11.5 % (3.8-10.2); NEUT % 72.7 % (42.8-82.8); PLATELET COUNT 82 10^3/uL (134-434); RBC 3.14 M/mm3 (4.00-5.60); RDW 18.2 % (11.9-15.9); WHITE BLOOD COUNT 4.7 K/mm3 (4.0-10.0)
[2021-09-04 09:18] LABS: BLOOD UREA NITROGEN 30.2 mg/dL (7-18); CALCIUM 9.1 mg/dL (8.5-10.1)
[2021-09-04 09:23] LABS: BILIRUBIN,TOTAL 0.6 mg/dL (0.2-1); TOT PROT 7.1 g/dl (6.4-8.2)
[2021-09-04] MEDS ORDERED: BORTEZOMIB (VELCADE) 2.5 MG/ML SUB-Q INJECTION SQ ONE (10:00)
[2021-09-04] MEDS ORDERED: ONDANSETRON 8 MG TABLET (FP) PO ONE (10:00)
[2021-09-04] MEDS ORDERED: DEXAMETHASONE 4 MG TABLET (FP) PO ONE (10:00)
[2021-09-04 15:41] VITALS: BP 119/62; PULSE 84; TEMP 98
== END 2021-09-04 10:55 | disposition home or self-care (01) ==
LOC: JONCCHEMO 07:46
PROVIDERS: ATTEND Internal Medicine Hematology & Oncology
DX: Z51.11 Encounter for antineoplastic chemotherapy (principal); C90.00 Multiple myeloma not having achieved remission
CPT/HCPCS: 36415; 80053; 85025; 96401; J9041

== ENCOUNTER 2021-10-09 12:24 | Inpatient (IN) | payer OTHER, MEDICARE ==
[2021-10-09] MEDS ORDERED: SODIUM CHLORIDE 500 ML IV STA (13:32)
[2021-10-09 14:41] LABS: HEMATOCRIT 21.8 % (35.4-49); HEMOGLOBIN 7.4 GM/dL (11.7-16.9); MCH 35.9 pg (25.7-33.7); MCHC 33.9 g/dl (32.0-35.9); MEAN CELL VOLUME 105.8 fl (80-96); MEAN PLT VOLUME 8.5 fl (7.5-11.1); PLATELET COUNT 166 10^3/uL (134-434); RBC 2.06 M/mm3 (4.00-5.60); RDW 17.9 % (11.9-15.9); WHITE BLOOD COUNT 2.5 K/mm3 (4.0-10.0)
[2021-10-09 14:42] LABS: INR 1.56 (0.83-1.09)
[2021-10-09 14:44] LABS: ACTIVATED PTT 25.8 SECONDS (25.2-36.5)
[2021-10-09 14:52] LABS: CHLORIDE 108 mmol/L (98-107); SODIUM 139 mmol/L (136-145)
[2021-10-09 14:54] LABS: ALBUMIN 2.1 g/dl (3.4-5.0); ANION GAP 5 MMOL/L (8-16); CALCIUM 8.1 mg/dL (8.5-10.1); CO2 27 mmol/L (21-32); GLUCOSE,RANDOM 101 mg/dL (74-106)
[2021-10-09 14:55] LABS: BLOOD UREA NITROGEN 22.2 mg/dL (7-18)
[2021-10-09 14:57] LABS: SGOT/AST 12 U/L (15-37); SGPT/ALT 13 U/L (13-61)
[2021-10-09 14:59] LABS: BILIRUBIN,TOTAL 0.3 mg/dL (0.2-1); TOT PROT 7.2 g/dl (6.4-8.2)
[2021-10-09 15:00] LABS: ALK PHOS 46 U/L (45-117)
[2021-10-09 15:19] LABS: ANISOCYTOSIS 2+; MACROCYTOSIS 2+
[2021-10-09] MEDS ORDERED: ACETAMINOPHEN 325 MG TABLET (FP) PO ONE (15:31)
[2021-10-09] MEDS ORDERED: ACETAMINOPHEN 325 MG TABLET (FP) ONE (15:36)
[2021-10-09 18:27] LABS: PH,URINE 6.5 (5.0-8.0); URINE APPEARANCE CLEAR; URINE BILIRUBIN NEGATIVE (NEGATIVE); URINE COLOR YELLOW; URINE GLUCOSE (UA) NEGATIVE (NEGATIVE); URINE KETONE NEGATIVE (NEGATIVE); URINE LEUK ESTERASE NEGATIVE (NEGATIVE); URINE NITRITE NEGATIVE (NEGATIVE); URINE PROTEIN TRACE (NEGATIVE); URINE UROBILINOGEN 0.2 mg/dL (0.2-1.0)
[2021-10-09] MEDS ORDERED: PIPERACILLIN/TAZOB 4.5 GM 4.5 GM in DEXTROSE 5%-WATER 100 ML IVPB ONE (18:37)
[2021-10-09] MEDS ORDERED: VANCOMYCIN 1,000 MG in DEXTROSE 5%-WATER - 250 ML IVPB ONE (18:37)
[2021-10-09] MEDS ORDERED: PIPERACILLIN/TAZOB 4.5 GM 4.5 GM/100 ML BAG IVPB ONE (18:41)
[2021-10-09] MEDS ORDERED: VANCOMYCIN 1 GRAM (PRE-DOCKED) 1,000 MG/250 ML BAG IVPB ONE (18:42)
[2021-10-09] MEDS: SODIUM CHLORIDE 1,000 ML IV SCH (21:27)
[2021-10-10] MEDS ORDERED: ACETAMINOPHEN 1000 MG/100 ML BAG IVPB PRN (03:02)
[2021-10-10 03:30] VITALS: BMI 25.6
[2021-10-10] MEDS ORDERED: PIPERACILLIN/TAZOBACTAM 3.375 GM VIAL IVPB ONE ×2 (05:31→08:58)
[2021-10-10] MEDS ORDERED: DEXTROSE 5%-WATER - 50 ML IVPB ONE ×2 (05:32→08:58)
[2021-10-10] MEDS: PIPERACILLIN/TAZOB 3.375 GM 3.375 GM in DEXTROSE 5%-WATER - 50 ML IVPB SCH ×2 (06:51→11:25)
[2021-10-10] MEDS: ENOXAPARIN NA (PORCINE) 40 MG/0.4 ML DISP.SYRIN SQ SCH (09:42)
[2021-10-10] MEDS ORDERED: PIPERACILLIN/TAZOB 3.375 GM 3.375 GM in DEXTROSE 5%-WATER - 50 ML IVPB SCH (10:00)
[2021-10-10] MEDS ORDERED: VANCOMYCIN 1 GM in D5W (PRE-DOCKED) 1,000 MG/250 ML IVPB SCH (10:00)
[2021-10-10 13:09] LABS: BASO % 0.6 % (0-2.0); EOS % 4.7 % (0-4.5); HEMATOCRIT 21.2 % (35.4-49); HEMOGLOBIN 7.3 GM/dL (11.7-16.9); LYMPH % 15.4 % (8-40); MCH 36.4 pg (25.7-33.7); MCHC 34.4 g/dl (32.0-35.9); MEAN CELL VOLUME 105.7 fl (80-96); MEAN PLT VOLUME 8.7 fl (7.5-11.1); MONO % 17.4 % (3.8-10.2); NEUT % 61.9 % (42.8-82.8); PLATELET COUNT 172 10^3/uL (134-434); RDW 17.8 % (11.9-15.9); WHITE BLOOD COUNT 2.7 K/mm3 (4.0-10.0)
[2021-10-10] MEDS: SODIUM CHLORIDE 1,000 ML IV SCH ×2 (13:18→22:14)
[2021-10-10 13:34] LABS: CALCIUM 7.5 mg/dL (8.5-10.1)
[2021-10-10 13:35] LABS: ALBUMIN 1.9 g/dl (3.4-5.0); BLOOD UREA NITROGEN 17.1 mg/dL (7-18); MAGNESIUM 1.9 mg/dL (1.8-2.4)
[2021-10-10 13:38] LABS: CREATININE 0.9 mg/dL (0.55-1.3); PHOSPHOROUS 2.7 mg/dL (2.5-4.9)
[2021-10-10 13:40] LABS: BILIRUBIN,TOTAL 0.3 mg/dL (0.2-1); TOT PROT 6.7 g/dl (6.4-8.2)
[2021-10-10] MEDS ORDERED: VANCOMYCIN/WATER FOR INJ (PEG) 1,000 MG/200 ML BAG IVPB SCH (18:00)
[2021-10-11] MEDS: SODIUM CHLORIDE 1,000 ML IV SCH ×3 (00:14→21:42)
[2021-10-11] MEDS: ENOXAPARIN NA (PORCINE) 40 MG/0.4 ML DISP.SYRIN SQ SCH (09:30)
[2021-10-11] MEDS: ASPIRIN COATED 81 MG TABLET.EC PO SCH (09:30)
[2021-10-11] MEDS: valACYclovir HCL 500 MG TABLET (FP) PO SCH (09:31)
[2021-10-11 09:55] LABS: INR 1.34 (0.83-1.09); PROTHROMBIN TIME (PATIENT) 15.4 SEC (9.7-13.0)
[2021-10-11 09:57] LABS: ACTIVATED PTT 26.1 SECONDS (25.2-36.5)
[2021-10-11 10:24] LABS: BASO % 0.5 % (0-2.0); CALCIUM 7.4 mg/dL (8.5-10.1); EOS % 3.6 % (0-4.5); HEMATOCRIT 24.5 % (35.4-49); HEMOGLOBIN 8.5 GM/dL (11.7-16.9); LYMPH % 19.1 % (8-40); MCH 36.7 pg (25.7-33.7); MCHC 34.6 g/dl (32.0-35.9); MEAN CELL VOLUME 106.2 fl (80-96); MEAN PLT VOLUME 8.9 fl (7.5-11.1); MONO % 19.1 % (3.8-10.2); NEUT % 57.7 % (42.8-82.8); PLATELET COUNT 245 10^3/uL (134-434); RBC 2.31 M/mm3 (4.00-5.60); RDW 18.1 % (11.9-15.9)
[2021-10-11 10:25] LABS: ALBUMIN 2.1 g/dl (3.4-5.0); BLOOD UREA NITROGEN 11.8 mg/dL (7-18)
[2021-10-11 10:29] LABS: TOT PROT 7.6 g/dl (6.4-8.2)
[2021-10-11 10:30] LABS: BILIRUBIN,TOTAL 0.4 mg/dL (0.2-1)
[2021-10-11 10:39] LABS: MAGNESIUM 1.9 mg/dL (1.8-2.4)
[2021-10-11 10:40] LABS: WHITE BLOOD COUNT 4.5 K/mm3 (4.0-10.0)
[2021-10-11] MEDS ORDERED: POTASSIUM CHLORIDE TABS 20 MEQ TABLET.ER (FP) PO ONE (12:30)
[2021-10-11] MEDS: ACETAMINOPHEN 325 MG TABLET (FP) PO PRN (19:12)
[2021-10-12] MEDS: ACETAMINOPHEN 325 MG TABLET (FP) PO PRN ×3 (08:19→21:07)
[2021-10-12] MEDS: SODIUM CHLORIDE 1,000 ML IV SCH ×2 (08:21→13:58)
[2021-10-12] MEDS: ENOXAPARIN NA (PORCINE) 40 MG/0.4 ML DISP.SYRIN SQ SCH (09:31)
[2021-10-12] MEDS: ASPIRIN COATED 81 MG TABLET.EC PO SCH (09:31)
[2021-10-12] MEDS: valACYclovir HCL 500 MG TABLET (FP) PO SCH (09:31)
[2021-10-12 09:52] LABS: HEMATOCRIT 21.7 % (35.4-49); HEMOGLOBIN 7.5 GM/dL (11.7-16.9); MCH 36.2 pg (25.7-33.7); MCHC 34.6 g/dl (32.0-35.9); MEAN CELL VOLUME 104.6 fl (80-96); MEAN PLT VOLUME 8.1 fl (7.5-11.1); PLATELET COUNT 206 10^3/uL (134-434); RBC 2.07 M/mm3 (4.00-5.60); RDW 17.2 % (11.9-15.9); WHITE BLOOD COUNT 3.1 K/mm3 (4.0-10.0)
[2021-10-12 10:12] LABS: ALBUMIN 1.8 g/dl (3.4-5.0); BLOOD UREA NITROGEN 11.9 mg/dL (7-18); MAGNESIUM 1.8 mg/dL (1.8-2.4)
[2021-10-12 10:13] LABS: CALCIUM 7.1 mg/dL (8.5-10.1)
[2021-10-12 10:15] LABS: CREATININE 0.7 mg/dL (0.55-1.3)
[2021-10-12 10:17] LABS: BILIRUBIN,TOTAL 0.3 mg/dL (0.2-1); TOT PROT 6.5 g/dl (6.4-8.2)
[2021-10-12 11:06] LABS: ANISOCYTOSIS 1+; MACROCYTOSIS 1+
[2021-10-12 12:07] LABS: IGA IMMUNOGLOBULIN 31 mg/dL (61-437); IGG QN IMMUNOGLOBULIN 3567 mg/dL (603-1613); IGM QN SERUM 13 mg/dL (15-143)
[2021-10-12] MEDS: LENALIDOMIDE 5 MG PO SCH (19:58)
[2021-10-12 20:03] LABS: RETICULOCYTES 2.59 % (0.5-1.5)
[2021-10-13] MEDS: ACETAMINOPHEN 325 MG TABLET (FP) PO PRN ×2 (02:58→09:52)
[2021-10-13] MEDS ORDERED: ONDANSETRON *ODT* 4 MG TABLET SL PRN (08:49)
[2021-10-13] MEDS ORDERED: DEXAMETHASONE 4 MG TABLET (FP) PO ONE (10:00)
[2021-10-13 11:03] LABS: BASO % 0.5 % (0-2.0); EOS % 1.2 % (0-4.5); HEMATOCRIT 22.7 % (35.4-49); HEMOGLOBIN 7.6 GM/dL (11.7-16.9); LYMPH % 10.6 % (8-40); MCH 35.2 pg (25.7-33.7); MCHC 33.5 g/dl (32.0-35.9); MEAN CELL VOLUME 105.2 fl (80-96); MEAN PLT VOLUME 8.5 fl (7.5-11.1); MONO % 16.7 % (3.8-10.2); PLATELET COUNT 223 10^3/uL (134-434); RBC 2.16 M/mm3 (4.00-5.60); RDW 17.8 % (11.9-15.9); WHITE BLOOD COUNT 3.4 K/mm3 (4.0-10.0)
[2021-10-13 11:59] LABS: ANISOCYTOSIS 1+; MACROCYTOSIS 1+
[2021-10-13 12:06] LABS: CALCIUM 7.4 mg/dL (8.5-10.1)
[2021-10-13 12:07] LABS: BLOOD UREA NITROGEN 12.1 mg/dL (7-18)
[2021-10-13] MEDS: ASPIRIN COATED 81 MG TABLET.EC PO SCH (12:09)
[2021-10-13] MEDS: valACYclovir HCL 500 MG TABLET (FP) PO SCH (12:09)
[2021-10-13 12:10] LABS: CREATININE 0.6 mg/dL (0.55-1.3); TOT PROT 7.1 g/dl (6.4-8.2)
[2021-10-13] MEDS: LENALIDOMIDE 5 MG PO SCH (12:10)
[2021-10-13] MEDS: ENOXAPARIN NA (PORCINE) 40 MG/0.4 ML DISP.SYRIN SQ SCH (12:10)
[2021-10-13] MEDS: PANTOPRAZOLE 40 MG TABLET PO SCH (12:10)
[2021-10-13 12:12] LABS: BILIRUBIN,TOTAL 0.4 mg/dL (0.2-1)
[2021-10-13 18:10] LABS: FREE KAPPA,SERUM 75.4 mg/L (3.3-19.4)
[2021-10-13] MEDS: SODIUM CHLORIDE 1,000 ML IV SCH (18:17)
[2021-10-14 08:13] LABS: BASO % 0.3 % (0-2.0); HEMATOCRIT 20.5 % (35.4-49); LYMPH % 11.3 % (8-40); MCH 35.4 pg (25.7-33.7); MCHC 33.7 g/dl (32.0-35.9); MEAN CELL VOLUME 105.3 fl (80-96); MEAN PLT VOLUME 9.1 fl (7.5-11.1); MONO % 14.3 % (3.8-10.2); NEUT % 74.1 % (42.8-82.8); PLATELET COUNT 139 10^3/uL (134-434); RBC 1.95 M/mm3 (4.00-5.60); RDW 17.5 % (11.9-15.9); WHITE BLOOD COUNT 2.7 K/mm3 (4.0-10.0)
[2021-10-14 08:19] LABS: HEMOGLOBIN 6.9 GM/dL (11.7-16.9)
[2021-10-14 08:55] LABS: CHLORIDE 116 mmol/L (98-107); SODIUM 145 mmol/L (136-145)
[2021-10-14 08:59] LABS: ALBUMIN 1.8 g/dl (3.4-5.0); ANION GAP 6 MMOL/L (8-16); BLOOD UREA NITROGEN 15.8 mg/dL (7-18); CO2 23 mmol/L (21-32); GLUCOSE,RANDOM 137 mg/dL (74-106)
[2021-10-14 09:02] LABS: CREATININE 0.7 mg/dL (0.55-1.3); SGOT/AST 11 U/L (15-37); SGPT/ALT 11 U/L (13-61)
[2021-10-14 09:03] LABS: BILIRUBIN,TOTAL 0.3 mg/dL (0.2-1); LDH 181 U/L (87-246); TOT PROT 6.3 g/dl (6.4-8.2)
[2021-10-14 09:05] LABS: ALK PHOS 42 U/L (45-117); CALCIUM 6.8 mg/dL (8.5-10.1)
[2021-10-14] MEDS: valACYclovir HCL 500 MG TABLET (FP) PO SCH (10:09)
[2021-10-14] MEDS: PANTOPRAZOLE 40 MG TABLET PO SCH (10:09)
[2021-10-14] MEDS: LENALIDOMIDE 5 MG PO SCH (10:09)
[2021-10-14] MEDS: ENOXAPARIN NA (PORCINE) 40 MG/0.4 ML DISP.SYRIN SQ SCH (12:02)
[2021-10-14] MEDS: ASPIRIN COATED 81 MG TABLET.EC PO SCH (12:02)
[2021-10-14] MEDS: SODIUM CHLORIDE 1,000 ML IV SCH ×2 (12:04→17:48)
[2021-10-14 15:07] LABS: COLD AGGLUTININS Negative (Neg <1:32)
[2021-10-14 16:07] LABS: MYCOPLASMA PNEUMONIAE,IG G AB <100 U/mL (0-99); MYCOPLASMA PNEUMONIAE,IGM AB <770 U/mL (0-769)
[2021-10-14] MEDS ORDERED: DEXAMETHASONE 4 MG TABLET (FP) PO ONE (19:30)
[2021-10-14] MEDS ORDERED: FUROSEMIDE 40 MG/4 ML INJECTABLE VIAL IVPUSH ONE (20:39)
[2021-10-14] MEDS: CALCIUM 250MG/VIT-D 125 UNITS 1 COMBO TABLET PO SCH (22:33)
[2021-10-15] MEDS ORDERED: MELATONIN 5 MG TABLETS PO ONE (01:05)
[2021-10-15] MEDS: ASPIRIN COATED 81 MG TABLET.EC PO SCH (10:47)
[2021-10-15] MEDS: PANTOPRAZOLE 40 MG TABLET PO SCH (10:47)
[2021-10-15] MEDS: valACYclovir HCL 500 MG TABLET (FP) PO SCH (10:47)
[2021-10-15] MEDS: CALCIUM 250MG/VIT-D 125 UNITS 1 COMBO TABLET PO SCH (10:47)
[2021-10-15] MEDS: ENOXAPARIN NA (PORCINE) 40 MG/0.4 ML DISP.SYRIN SQ SCH (10:50)
[2021-10-15] MEDS: LENALIDOMIDE 5 MG PO SCH (10:51)
[2021-10-15 10:54] LABS: BASO % 0.1 % (0-2.0); HEMATOCRIT 24.1 % (35.4-49); HEMOGLOBIN 8.4 GM/dL (11.7-16.9); LYMPH % 10.4 % (8-40); MCH 34.7 pg (25.7-33.7); MCHC 34.9 g/dl (32.0-35.9); MEAN CELL VOLUME 99.5 fl (80-96); MEAN PLT VOLUME 8.9 fl (7.5-11.1); MONO % 10.2 % (3.8-10.2); NEUT % 79.3 % (42.8-82.8); PLATELET COUNT 133 10^3/uL (134-434); RBC 2.42 M/mm3 (4.00-5.60); RDW 20.5 % (11.9-15.9); WHITE BLOOD COUNT 3.5 K/mm3 (4.0-10.0)
[2021-10-15 11:13] LABS: BLOOD UREA NITROGEN 18.4 mg/dL (7-18); CALCIUM 7.2 mg/dL (8.5-10.1)
[2021-10-15 11:16] LABS: CREATININE 0.8 mg/dL (0.55-1.3)
[2021-10-15 11:18] LABS: BILIRUBIN,TOTAL 0.5 mg/dL (0.2-1); TOT PROT 6.9 g/dl (6.4-8.2)
[2021-10-15 21:54] VITALS: BP 119/78; PULSE 64; TEMP 98.4
== END 2021-10-15 13:44 | disposition home or self-care (01) | DRG 841 ==
LOC: JER 12:24 → JERBED 18:56 → J5S 10-10 02:22
PROVIDERS: ADMIT Internal Medicine; ATTEND Nurse Practitioner Family
PROC: 30233N1 Transfusion of Nonautologous Red Blood Cells into Peripheral Vein, Percutaneous Approach (ICD-10-PCS; principal; 2021-10-14)
DX: C90.00 Multiple myeloma not having achieved remission (principal); J90 Pleural effusion, not elsewhere classified; J98.11 Atelectasis; I10 Essential (primary) hypertension; R06.09 Other forms of dyspnea; E78.5 Hyperlipidemia, unspecified; D63.8 Anemia in other chronic diseases classified elsewhere; M25.452 Effusion, left hip; Z86.16 Personal history of COVID-19; Z96.641 Presence of right artificial hip joint
CPT/HCPCS: 36415; 36430; 71045-TC-FY; 71250-TC; 74176-TC; 80053; 81003; 82550; 82553; 82607; 82728; 82746; 82784; 82962; 83010; 83540; 83550; 83605; 83615; 83735; 83883; 84100; 84155; 84165; 84443; 84484; 84550; 85025; 85045; 85384; 85610; 85651; 85730; 86038; 86140; 86157; 86431; 86738; 86850; 86880; 86900; 86901; 86922; 87040; 87086; 87804; 87807; 93005; 93010; 93306-TC; 97116-GP; 97161-GP; 99285-25; C9803-CS; P9058; Q0162; U0003; U0005

== ENCOUNTER 2021-10-19 10:42 | Inpatient (IN) | payer OTHER, MEDICARE ==
[2021-10-19] MEDS ORDERED: VANCOMYCIN/WATER 1250 MG 1,250 MG/250 ML BAG IVPB ONE ×2 (12:44→15:16)
[2021-10-19 12:59] LABS: HEMATOCRIT 26.5 % (35.4-49); MCH 34.1 pg (25.7-33.7); MCHC 33.9 g/dl (32.0-35.9); MEAN CELL VOLUME 100.7 fl (80-96); MEAN PLT VOLUME 10.7 fl (7.5-11.1); PLATELET COUNT 91 10^3/uL (134-434); RBC 2.63 M/mm3 (4.00-5.60); RDW 18.6 % (11.9-15.9); WHITE BLOOD COUNT 3.3 K/mm3 (4.0-10.0)
[2021-10-19 13:20] LABS: CALCIUM 7.3 mg/dL (8.5-10.1)
[2021-10-19 13:21] LABS: ALBUMIN 2.2 g/dl (3.4-5.0); BLOOD UREA NITROGEN 15.4 mg/dL (7-18)
[2021-10-19 13:24] LABS: CREATININE 0.8 mg/dL (0.55-1.3)
[2021-10-19 13:26] LABS: BILIRUBIN,TOTAL 0.5 mg/dL (0.2-1)
[2021-10-19 13:27] LABS: TOT PROT 6.7 g/dl (6.4-8.2)
[2021-10-19 13:29] LABS: N-TERMINAL BNP 2046.5 pg/ml (5-450)
[2021-10-19] MEDS ORDERED: CEFEPIME HCL/D5W 2 GM/50 ML BAG IVPB ONE (13:32)
[2021-10-19] MEDS ORDERED: FUROSEMIDE 40 MG/4 ML INJECTABLE VIAL IVPUSH ONE (13:39)
[2021-10-19 14:26] LABS: ANISOCYTOSIS 1+; MACROCYTOSIS 0; OVALOCYTE 2+
[2021-10-19] MEDS ORDERED: FUROSEMIDE 40 MG/4 ML INJECTABLE VIAL ONE (14:39)
[2021-10-19] MEDS ORDERED: CEFEPIME 2 GM/100 ML BAG IVPB ONE (14:39)
[2021-10-19 15:09] LABS: PH,URINE 5.5 (5.0-8.0); URINE APPEARANCE CLEAR; URINE BILIRUBIN NEGATIVE (NEGATIVE); URINE COLOR YELLOW; URINE GLUCOSE (UA) NEGATIVE (NEGATIVE); URINE KETONE NEGATIVE (NEGATIVE); URINE LEUK ESTERASE NEGATIVE (NEGATIVE); URINE NITRITE NEGATIVE (NEGATIVE); URINE PROTEIN NEGATIVE (NEGATIVE); URINE UROBILINOGEN 0.2 mg/dL (0.2-1.0)
[2021-10-20] MEDS: ACETAMINOPHEN 325 MG TABLET (FP) PO PRN ×2 (01:30→13:18)
[2021-10-20 01:48] VITALS: BMI 25.4
[2021-10-20] MEDS ORDERED: FUROSEMIDE 40 MG/4 ML INJECTABLE VIAL IVPUSH SCH (10:00)
[2021-10-20 10:39] LABS: EOS % 1.1 % (0-4.5); HEMATOCRIT 29.7 % (35.4-49); HEMOGLOBIN 10.1 GM/dL (11.7-16.9); LYMPH % 18.7 % (8-40); MCH 34.2 pg (25.7-33.7); MCHC 34.2 g/dl (32.0-35.9); MEAN CELL VOLUME 100.1 fl (80-96); MEAN PLT VOLUME 10.8 fl (7.5-11.1); MONO % 18.9 % (3.8-10.2); NEUT % 60.3 % (42.8-82.8); PLATELET COUNT 111 10^3/uL (134-434); RBC 2.97 M/mm3 (4.00-5.60); RDW 18.3 % (11.9-15.9); WHITE BLOOD COUNT 2.9 K/mm3 (4.0-10.0)
[2021-10-20 10:47] LABS: INR 1.39 (0.83-1.09)
[2021-10-20 10:49] LABS: ACTIVATED PTT 26.8 SECONDS (25.2-36.5)
[2021-10-20 11:14] LABS: ALBUMIN 2.4 g/dl (3.4-5.0); CALCIUM 7.6 mg/dL (8.5-10.1)
[2021-10-20 11:15] LABS: BLOOD UREA NITROGEN 14.3 mg/dL (7-18)
[2021-10-20 11:17] LABS: CREATININE 0.9 mg/dL (0.55-1.3)
[2021-10-20 11:18] LABS: PHOSPHOROUS 2.4 mg/dL (2.5-4.9)
[2021-10-20 11:19] LABS: BILIRUBIN,TOTAL 0.7 mg/dL (0.2-1); TOT PROT 7.7 g/dl (6.4-8.2)
[2021-10-20] MEDS ORDERED: POTASSIUM CHLORIDE TABS 20 MEQ TABLET.ER (FP) PO ONE (12:15)
[2021-10-20] MEDS: CALCIUM 250MG/VIT-D 125 UNITS 1 COMBO TABLET PO SCH (21:38)
[2021-10-21] MEDS: PANTOPRAZOLE 40 MG TABLET PO SCH (09:19)
[2021-10-21] MEDS: LISINOPRIL 5 MG TABLET PO SCH (09:19)
[2021-10-21] MEDS: CALCIUM 250MG/VIT-D 125 UNITS 1 COMBO TABLET PO SCH ×2 (09:19→21:28)
[2021-10-21] MEDS: valACYclovir HCL 500 MG TABLET (FP) PO SCH (09:19)
[2021-10-21] MEDS ORDERED: POTASSIUM CHLORIDE TABS 20 MEQ TABLET.ER (FP) PO ONE (16:56)
[2021-10-22 09:00] VITALS: BP 100/56; PULSE 88; TEMP 98.3
[2021-10-22] MEDS: LISINOPRIL 5 MG TABLET PO SCH (09:03)
[2021-10-22] MEDS: PANTOPRAZOLE 40 MG TABLET PO SCH (09:03)
[2021-10-22] MEDS: CALCIUM 250MG/VIT-D 125 UNITS 1 COMBO TABLET PO SCH (09:03)
[2021-10-22] MEDS: valACYclovir HCL 500 MG TABLET (FP) PO SCH (09:03)
== END 2021-10-22 14:07 | disposition home or self-care (01) | DRG 948 ==
LOC: JER 10:42 → JERBED 14:39 → J6S 10-20 00:11
PROVIDERS: ADMIT Internal Medicine; ATTEND Nurse Practitioner Acute Care
DX: R60.0 Localized edema (principal); C90.00 Multiple myeloma not having achieved remission; I24.8 Other forms of acute ischemic heart disease; D61.818 Other pancytopenia; E78.5 Hyperlipidemia, unspecified; I10 Essential (primary) hypertension; D64.9 Anemia, unspecified; R53.1 Weakness; I50.9 Heart failure, unspecified; T45.1X5A Adverse effect of antineoplastic and immunosuppressive drugs, initial encounter; E83.51 Hypocalcemia; D72.819 Decreased white blood cell count, unspecified
CPT/HCPCS: 36415; 71046-TC-FY; 80053; 81003; 83735; 83880; 84100; 84443; 84484; 85025; 85610; 85730; 86850; 86900; 86901; 87040; 87086; 93005; 93010; 93970-TC; 97116-GP; 97162-GP; 99285-25; C9803-CS; U0003; U0005

== ENCOUNTER 2021-10-23 08:12 | Day surgery (SDC) | payer OTHER, MEDICARE ==
[2021-10-23] MEDS ORDERED: DENOSUMAB 120 MG/1.7 ML VIAL SQ ONE (09:45)
[2021-10-23 09:50] LABS: BASO % 0.8 % (0-2.0); EOS % 1.3 % (0-4.5); HEMATOCRIT 29.9 % (35.4-49); LYMPH % 18.2 % (8-40); MCHC 33.4 g/dl (32.0-35.9); MEAN CELL VOLUME 101.9 fl (80-96); MEAN PLT VOLUME 10.7 fl (7.5-11.1); NEUT % 64.7 % (42.8-82.8); PLATELET COUNT 158 10^3/uL (134-434); RBC 2.94 M/mm3 (4.00-5.60); RDW 18.7 % (11.9-15.9); WHITE BLOOD COUNT 6.3 K/mm3 (4.0-10.0)
[2021-10-23] MEDS ORDERED: DEXAMETHASONE 4 MG TABLET (FP) PO ONE (10:00)
[2021-10-23] MEDS ORDERED: GRANISETRON HCL 1 MG TABLET PO ONE (10:00)
[2021-10-23 10:11] LABS: CALCIUM 8.2 mg/dL (8.5-10.1)
[2021-10-23 10:12] LABS: ALBUMIN 2.7 g/dl (3.4-5.0); BLOOD UREA NITROGEN 24.4 mg/dL (7-18)
[2021-10-23 10:15] LABS: CREATININE 1.6 mg/dL (0.55-1.3)
[2021-10-23 10:17] LABS: BILIRUBIN,TOTAL 0.3 mg/dL (0.2-1); TOT PROT 8.1 g/dl (6.4-8.2)
[2021-10-23] MEDS ORDERED: SODIUM CHLORIDE 500 ML IV STA (10:26)
[2021-10-23] MEDS ORDERED: BORTEZOMIB (VELCADE) 2.5 MG/ML SUB-Q INJECTION SQ ONE (10:30)
[2021-10-23 10:47] VITALS: TEMP 98.7
[2021-10-23 16:00] VITALS: BP 93/47; PULSE 99
[2021-10-24 15:09] LABS: IGA IMMUNOGLOBULIN 35 mg/dL (61-437); IGG QN IMMUNOGLOBULIN 3425 mg/dL (603-1613); IGM QN SERUM 29 mg/dL (15-143)
== END 2021-10-23 14:15 | disposition home or self-care (01) ==
LOC: JONCCHEMO 08:12
PROVIDERS: ATTEND Internal Medicine Hematology & Oncology
PROC: 3E01305 Introduction of Other Antineoplastic into Subcutaneous Tissue, Percutaneous Approach (ICD-10-PCS; principal; 2021-10-23)
PROC: 3E0337Z Introduction of Electrolytic and Water Balance Substance into Peripheral Vein, Percutaneous Approach (ICD-10-PCS; 2021-10-23)
DX: Z51.11 Encounter for antineoplastic chemotherapy (principal)
CPT/HCPCS: 36415; 80053; 82784; 83883; 84155; 84165; 85025; 96360; 96361; 96401; J9041

== ENCOUNTER 2021-10-29 07:18 | Day surgery (SDC) | payer OTHER, MEDICARE ==
[2021-10-29] MEDS ORDERED: BORTEZOMIB (VELCADE) 2.5 MG/ML SUB-Q INJECTION SQ ONE (10:00)
[2021-10-29] MEDS ORDERED: GRANISETRON HCL 1 MG TABLET PO ONE (10:00)
[2021-10-29] MEDS ORDERED: DEXAMETHASONE 4 MG TABLET (FP) PO ONE (10:00)
[2021-10-29] MEDS ORDERED: SODIUM CHLORIDE 600 ML IV STA ×2 (11:33→11:51)
[2021-10-29] MEDS ORDERED: SODIUM CHLORIDE 500 ML IV STA (11:33)
[2021-10-29 11:47] LABS: BASO % 0.6 % (0-2.0); EOS % 4.3 % (0-4.5); HEMATOCRIT 26.3 % (35.4-49); HEMOGLOBIN 8.7 GM/dL (11.7-16.9); LYMPH % 16.3 % (8-40); MCH 33.7 pg (25.7-33.7); MCHC 33.2 g/dl (32.0-35.9); MEAN CELL VOLUME 101.5 fl (80-96); MEAN PLT VOLUME 11.7 fl (7.5-11.1); MONO % 14.1 % (3.8-10.2); NEUT % 64.7 % (42.8-82.8); PLATELET COUNT 127 10^3/uL (134-434); RBC 2.59 M/mm3 (4.00-5.60); RDW 17.5 % (11.9-15.9); WHITE BLOOD COUNT 4.1 K/mm3 (4.0-10.0)
[2021-10-29 12:07] LABS: ALBUMIN 2.7 g/dl (3.4-5.0)
[2021-10-29 12:08] LABS: CALCIUM 8.4 mg/dL (8.5-10.1)
[2021-10-29 12:09] LABS: BLOOD UREA NITROGEN 22.3 mg/dL (7-18)
[2021-10-29 12:11] LABS: CREATININE 1.2 mg/dL (0.55-1.3)
[2021-10-29 12:13] LABS: BILIRUBIN,TOTAL 0.5 mg/dL (0.2-1); TOT PROT 7.4 g/dl (6.4-8.2)
[2021-10-29 16:25] VITALS: BP 95/49; PULSE 85; TEMP 98.5
== END 2021-10-29 13:40 | disposition home or self-care (01) ==
LOC: JONCCHEMO 07:18
PROVIDERS: ATTEND Internal Medicine Hematology & Oncology
PROC: 3E01305 Introduction of Other Antineoplastic into Subcutaneous Tissue, Percutaneous Approach (ICD-10-PCS; principal; 2021-10-29)
PROC: 3E0337Z Introduction of Electrolytic and Water Balance Substance into Peripheral Vein, Percutaneous Approach (ICD-10-PCS; 2021-10-29)
DX: Z51.11 Encounter for antineoplastic chemotherapy (principal); C90.00 Multiple myeloma not having achieved remission
CPT/HCPCS: 36415; 80053; 85025; 96360; 96401; J9041

== ENCOUNTER 2021-11-05 11:10 | Day surgery (SDC) | payer OTHER, MEDICARE ==
[~2021-11-05 11:10] MED LIST changes: +BORTEZOMIB (VELCADE) 2.5 MG/ML SUB-Q INJECTION SQ ONE; +DENOSUMAB 120 MG/1.7 ML VIAL SQ ONE; +GRANISETRON HCL 1 MG TABLET PO ONE
[2021-11-05 15:40] VITALS: BP 96/53; PULSE 84; TEMP 98.7
== END 2021-11-05 12:00 | disposition home or self-care (01) ==
LOC: JONCCHEMO 11:10
PROVIDERS: ATTEND Internal Medicine Hematology & Oncology
DX: Z51.11 Encounter for antineoplastic chemotherapy (principal); C90.00 Multiple myeloma not having achieved remission
CPT/HCPCS: 96372; 96401; J0897; J9041

== ENCOUNTER 2021-11-12 07:29 | Day surgery (SDC) | payer OTHER, MEDICARE ==
[2021-11-12 09:55] LABS: BASO % 0.9 % (0-2.0); EOS % 0.6 % (0-4.5); HEMATOCRIT 25.5 % (35.4-49); HEMOGLOBIN 8.6 GM/dL (11.7-16.9); LYMPH % 18.1 % (8-40); MCH 34.5 pg (25.7-33.7); MCHC 33.7 g/dl (32.0-35.9); MEAN CELL VOLUME 102.2 fl (80-96); MEAN PLT VOLUME 9.9 fl (7.5-11.1); MONO % 12.3 % (3.8-10.2); NEUT % 68.1 % (42.8-82.8); PLATELET COUNT 135 10^3/uL (134-434); RBC 2.49 M/mm3 (4.00-5.60); RDW 17.7 % (11.9-15.9); WHITE BLOOD COUNT 4.9 K/mm3 (4.0-10.0)
[2021-11-12 10:11] LABS: CALCIUM 8.6 mg/dL (8.5-10.1)
[2021-11-12 10:12] LABS: ALBUMIN 2.7 g/dl (3.4-5.0); BLOOD UREA NITROGEN 14.2 mg/dL (7-18)
[2021-11-12 10:15] LABS: CREATININE 0.9 mg/dL (0.55-1.3)
[2021-11-12 10:17] LABS: BILIRUBIN,TOTAL 0.4 mg/dL (0.2-1); TOT PROT 6.5 g/dl (6.4-8.2)
[2021-11-12] MEDS ORDERED: DEXAMETHASONE 4 MG TABLET (FP) PO ONE (10:30)
[2021-11-12] MEDS ORDERED: GRANISETRON HCL 1 MG TABLET PO ONE (10:30)
[2021-11-12] MEDS ORDERED: BORTEZOMIB (VELCADE) 2.5 MG/ML SUB-Q INJECTION SQ ONE (10:30)
[2021-11-12 15:37] VITALS: BP 106/54; PULSE 80; TEMP 97.7
== END 2021-11-12 11:30 | disposition home or self-care (01) ==
LOC: JONCNONCHE 07:29
PROVIDERS: ATTEND Internal Medicine Hematology & Oncology
DX: Z51.11 Encounter for antineoplastic chemotherapy (principal); C90.00 Multiple myeloma not having achieved remission
CPT/HCPCS: 36415; 80053; 82784; 83883; 84443; 85025; 96401; J9041

== ENCOUNTER 2021-11-20 06:45 | Day surgery (SDC) | payer OTHER, MEDICARE ==
[2021-11-20 09:12] LABS: BASO % 1.2 % (0-2.0); EOS % 7.9 % (0-4.5); HEMATOCRIT 28.6 % (35.4-49); HEMOGLOBIN 9.7 GM/dL (11.7-16.9); MCH 34.6 pg (25.7-33.7); MEAN CELL VOLUME 101.8 fl (80-96); MEAN PLT VOLUME 10.5 fl (7.5-11.1); MONO % 7.1 % (3.8-10.2); NEUT % 65.8 % (42.8-82.8); PLATELET COUNT 123 10^3/uL (134-434); RDW 17.2 % (11.9-15.9); WHITE BLOOD COUNT 4.5 K/mm3 (4.0-10.0)
[2021-11-20 09:44] LABS: ALBUMIN 2.9 g/dl (3.4-5.0); BLOOD UREA NITROGEN 13.8 mg/dL (7-18); CALCIUM 8.6 mg/dL (8.5-10.1)
[2021-11-20 09:47] LABS: CREATININE 0.9 mg/dL (0.55-1.3)
[2021-11-20 09:49] LABS: BILIRUBIN,TOTAL 0.7 mg/dL (0.2-1); TOT PROT 6.6 g/dl (6.4-8.2)
[2021-11-20] MEDS ORDERED: GRANISETRON HCL 1 MG TABLET PO ONE ×2 (10:00)
[2021-11-20] MEDS ORDERED: DEXAMETHASONE 4 MG TABLET (FP) PO ONE ×2 (10:00)
[2021-11-20] MEDS ORDERED: BORTEZOMIB (VELCADE) 2.5 MG/ML SUB-Q INJECTION SQ ONE ×2 (10:00)
[2021-11-20 13:22] VITALS: BP 94/49; PULSE 81; RESP 18; TEMP 98.7
== END 2021-11-20 11:00 | disposition home or self-care (01) ==
LOC: JONCCHEMO 06:45
PROVIDERS: ATTEND Internal Medicine Hematology & Oncology
DX: Z51.11 Encounter for antineoplastic chemotherapy (principal); C90.00 Multiple myeloma not having achieved remission
CPT/HCPCS: 36415; 80053; 85025; 96401; J9041

== ENCOUNTER 2021-11-27 07:08 | Day surgery (SDC) | payer OTHER, MEDICARE ==
[2021-11-27] MEDS ORDERED: GRANISETRON HCL 1 MG TABLET PO ONE (10:00)
[2021-11-27] MEDS ORDERED: BORTEZOMIB (VELCADE) 2.5 MG/ML SUB-Q INJECTION SQ ONE (10:00)
[2021-11-27 10:21] LABS: BASO % 0.7 % (0-2.0); EOS % 3.2 % (0-4.5); HEMATOCRIT 30.1 % (35.4-49); HEMOGLOBIN 10.1 GM/dL (11.7-16.9); LYMPH % 16.8 % (8-40); MCH 34.4 pg (25.7-33.7); MCHC 33.7 g/dl (32.0-35.9); MEAN PLT VOLUME 10.6 fl (7.5-11.1); MONO % 9.5 % (3.8-10.2); NEUT % 69.8 % (42.8-82.8); PLATELET COUNT 109 10^3/uL (134-434); RBC 2.95 M/mm3 (4.00-5.60); RDW 16.4 % (11.9-15.9); WHITE BLOOD COUNT 5.2 K/mm3 (4.0-10.0)
[2021-11-27 10:41] LABS: CALCIUM 8.4 mg/dL (8.5-10.1)
[2021-11-27 10:42] LABS: ALBUMIN 2.9 g/dl (3.4-5.0); BLOOD UREA NITROGEN 11.8 mg/dL (7-18)
[2021-11-27 10:45] LABS: CREATININE 0.8 mg/dL (0.55-1.3)
[2021-11-27 10:46] LABS: BILIRUBIN,TOTAL 0.4 mg/dL (0.2-1); TOT PROT 6.4 g/dl (6.4-8.2)
[2021-11-27] MEDS ORDERED: DEXAMETHASONE 4 MG TABLET (FP) PO ONE (12:00)
[2021-11-27 14:51] VITALS: BP 117/65; PULSE 79; RESP 18; TEMP 98.4
[2021-11-28 19:08] LABS: FREE KAPPA,SERUM 79.1 mg/L (3.3-19.4)
== END 2021-11-27 12:30 | disposition home or self-care (01) ==
LOC: JONCCHEMO 07:08
PROVIDERS: ATTEND Internal Medicine Hematology & Oncology
DX: Z51.11 Encounter for antineoplastic chemotherapy (principal); C90.00 Multiple myeloma not having achieved remission
CPT/HCPCS: 36415; 80053; 83883; 85025; 96402; J9041

== ENCOUNTER 2021-12-04 07:04 | Day surgery (SDC) | payer OTHER, MEDICARE ==
[2021-12-04] MEDS ORDERED: BORTEZOMIB 2.5 MG/ML SUB-Q INJECTION SQ ONE (10:00)
[2021-12-04] MEDS ORDERED: GRANISETRON HCL 1 MG TABLET PO ONE (10:00)
[2021-12-04 11:16] LABS: BASO % 0.3 % (0-2.0); EOS % 0.2 % (0-4.5); HEMATOCRIT 30.2 % (35.4-49); HEMOGLOBIN 10.6 GM/dL (11.7-16.9); LYMPH % 12.7 % (8-40); MCH 35.8 pg (25.7-33.7); MCHC 35.2 g/dl (32.0-35.9); MEAN CELL VOLUME 101.6 fl (80-96); MEAN PLT VOLUME 10.3 fl (7.5-11.1); MONO % 11.8 % (3.8-10.2); PLATELET COUNT 181 10^3/uL (134-434); RBC 2.97 M/mm3 (4.00-5.60); WHITE BLOOD COUNT 5.6 K/mm3 (4.0-10.0)
[2021-12-04 11:26] VITALS: BP 109/55; PULSE 89; RESP 20; TEMP 98.1
[2021-12-04 11:38] LABS: CALCIUM 8.4 mg/dL (8.5-10.1)
[2021-12-04 11:39] LABS: ALBUMIN 3.3 g/dl (3.4-5.0); BLOOD UREA NITROGEN 20.2 mg/dL (7-18)
[2021-12-04 11:42] LABS: CREATININE 0.9 mg/dL (0.55-1.3)
[2021-12-04 11:44] LABS: BILIRUBIN,TOTAL 0.5 mg/dL (0.2-1); TOT PROT 6.9 g/dl (6.4-8.2)
[2021-12-04] MEDS ORDERED: DEXAMETHASONE 4 MG TABLET (FP) PO ONE (12:20)
== END 2021-12-04 13:55 | disposition home or self-care (01) ==
LOC: JONCCHEMO 07:04
PROVIDERS: ATTEND Internal Medicine Hematology & Oncology
DX: Z51.11 Encounter for antineoplastic chemotherapy (principal); C90.00 Multiple myeloma not having achieved remission
CPT/HCPCS: 36415; 80053; 85025; 96401; J9044

== ENCOUNTER 2021-12-11 07:36 | Day surgery (SDC) | payer OTHER, MEDICARE ==
[2021-12-11 08:51] LABS: BASO % 1.3 % (0-2.0); EOS % 0.3 % (0-4.5); HEMOGLOBIN 11.2 GM/dL (11.7-16.9); LYMPH % 17.8 % (8-40); MCH 34.5 pg (25.7-33.7); MEAN CELL VOLUME 101.4 fl (80-96); MONO % 12.5 % (3.8-10.2); NEUT % 68.1 % (42.8-82.8); PLATELET COUNT 209 10^3/uL (134-434); RBC 3.25 M/mm3 (4.00-5.60); RDW 15.9 % (11.9-15.9); WHITE BLOOD COUNT 6.3 K/mm3 (4.0-10.0)
[2021-12-11 09:09] LABS: CALCIUM 8.6 mg/dL (8.5-10.1)
[2021-12-11 09:10] LABS: ALBUMIN 3.2 g/dl (3.4-5.0); BLOOD UREA NITROGEN 21.4 mg/dL (7-18)
[2021-12-11 09:13] LABS: CREATININE 0.8 mg/dL (0.55-1.3)
[2021-12-11 09:15] LABS: BILIRUBIN,TOTAL 0.5 mg/dL (0.2-1); TOT PROT 6.6 g/dl (6.4-8.2)
[2021-12-11] MEDS ORDERED: GRANISETRON HCL 1 MG TABLET PO ONE (10:00)
[2021-12-11] MEDS ORDERED: DEXAMETHASONE 4 MG TABLET (FP) PO ONE (10:00)
[2021-12-11] MEDS ORDERED: BORTEZOMIB 2.5 MG/ML SUB-Q INJECTION SQ ONE (10:30)
[2021-12-11 11:47] VITALS: BP 105/58; PULSE 85; RESP 18; TEMP 98.4
[2021-12-15 16:08] LABS: FREE KAPPA,SERUM 31.7 mg/L (3.3-19.4)
== END 2021-12-11 10:20 | disposition home or self-care (01) ==
LOC: JONCCHEMO 07:36
PROVIDERS: ATTEND Internal Medicine Hematology & Oncology
DX: Z51.11 Encounter for antineoplastic chemotherapy (principal); C90.00 Multiple myeloma not having achieved remission
CPT/HCPCS: 36415; 80053; 83883; 85025; 96401; J9044

== ENCOUNTER 2021-12-16 07:13 | Day surgery (SDC) | payer OTHER, MEDICARE ==
[2021-12-16] MEDS ORDERED: GRANISETRON HCL 1 MG TABLET PO ONE (10:00)
[2021-12-16] MEDS ORDERED: DEXAMETHASONE 4 MG TABLET (FP) PO ONE (10:00)
[2021-12-16] MEDS ORDERED: BORTEZOMIB 2.5 MG/ML SUB-Q INJECTION SQ ONE (10:30)
[2021-12-16 11:07] LABS: BASO % 0.3 % (0-2.0); EOS % 0.7 % (0-4.5); HEMATOCRIT 35.2 % (35.4-49); HEMOGLOBIN 11.9 GM/dL (11.7-16.9); LYMPH % 16.5 % (8-40); MCH 34.4 pg (25.7-33.7); MCHC 33.8 g/dl (32.0-35.9); MEAN CELL VOLUME 101.7 fl (80-96); MEAN PLT VOLUME 10.4 fl (7.5-11.1); MONO % 8.4 % (3.8-10.2); NEUT % 74.1 % (42.8-82.8); PLATELET COUNT 127 10^3/uL (134-434); RBC 3.46 M/mm3 (4.00-5.60); RDW 16.5 % (11.9-15.9); WHITE BLOOD COUNT 6.5 K/mm3 (4.0-10.0)
[2021-12-16 11:27] LABS: CALCIUM 8.8 mg/dL (8.5-10.1)
[2021-12-16 11:28] LABS: ALBUMIN 3.2 g/dl (3.4-5.0); BLOOD UREA NITROGEN 22.4 mg/dL (7-18); MAGNESIUM 1.8 mg/dL (1.8-2.4)
[2021-12-16 11:30] LABS: BILIRUBIN,DIRECT 0.1 mg/dL (0.0-0.2); URIC ACID 5.1 mg/dL (2.6-7.2)
[2021-12-16 11:31] LABS: CREATININE 0.9 mg/dL (0.55-1.3)
[2021-12-16 11:32] LABS: TOT PROT 6.6 g/dl (6.4-8.2)
[2021-12-16 11:33] LABS: BILIRUBIN,TOTAL 0.4 mg/dL (0.2-1)
[2021-12-16 14:43] VITALS: BP 112/63; PULSE 72; RESP 18; TEMP 97.8
== END 2021-12-16 12:15 | disposition home or self-care (01) ==
LOC: JONCCHEMO 07:13
PROVIDERS: ATTEND Internal Medicine Hematology & Oncology
DX: C90.00 Multiple myeloma not having achieved remission (principal)
CPT/HCPCS: 36415; 80048; 80076; 83615; 83735; 84550; 85025; 96401; J9044

== ENCOUNTER 2021-12-23 06:52 | Day surgery (SDC) | payer OTHER, MEDICARE ==
[2021-12-23] MEDS ORDERED: GRANISETRON HCL 1 MG TABLET PO ONE (10:00)
[2021-12-23] MEDS ORDERED: DEXAMETHASONE 4 MG TABLET (FP) PO ONE (10:00)
[2021-12-23] MEDS ORDERED: BORTEZOMIB 2.5 MG/ML SUB-Q INJECTION SQ ONE (10:00)
[2021-12-23 11:15] LABS: BASO % 0.4 % (0-2.0); EOS % 1.2 % (0-4.5); HEMOGLOBIN 11.6 GM/dL (11.7-16.9); LYMPH % 13.6 % (8-40); MCH 34.7 pg (25.7-33.7); MEAN CELL VOLUME 101.9 fl (80-96); MEAN PLT VOLUME 10.6 fl (7.5-11.1); MONO % 10.9 % (3.8-10.2); NEUT % 73.9 % (42.8-82.8); PLATELET COUNT 119 10^3/uL (134-434); RBC 3.33 M/mm3 (4.00-5.60); RDW 15.6 % (11.9-15.9); WHITE BLOOD COUNT 8.7 K/mm3 (4.0-10.0)
[2021-12-23 11:36] LABS: CALCIUM 8.7 mg/dL (8.5-10.1)
[2021-12-23 11:37] LABS: ALBUMIN 3.4 g/dl (3.4-5.0); BLOOD UREA NITROGEN 18.2 mg/dL (7-18); MAGNESIUM 1.8 mg/dL (1.8-2.4)
[2021-12-23 11:39] LABS: BILIRUBIN,DIRECT 0.2 mg/dL (0.0-0.2)
[2021-12-23 11:41] LABS: BILIRUBIN,TOTAL 0.3 mg/dL (0.2-1); CREATININE 0.9 mg/dL (0.55-1.3); TOT PROT 6.7 g/dl (6.4-8.2)
[2021-12-23 16:17] VITALS: BP 113/60; PULSE 93; RESP 18; TEMP 97.4
== END 2021-12-23 12:15 | disposition home or self-care (01) ==
LOC: JONCCHEMO 06:52
PROVIDERS: ATTEND Internal Medicine Hematology & Oncology
DX: Z51.11 Encounter for antineoplastic chemotherapy (principal); C90.00 Multiple myeloma not having achieved remission
CPT/HCPCS: 36415; 80048; 80076; 83615; 83735; 84550; 85025; 96401; J9044

== ENCOUNTER 2021-12-30 07:37 | Day surgery (SDC) | payer OTHER, MEDICARE ==
[2021-12-30] MEDS ORDERED: GRANISETRON HCL 1 MG TABLET PO ONE (10:00)
[2021-12-30] MEDS ORDERED: BORTEZOMIB 2.5 MG/ML SUB-Q INJECTION SQ ONE (10:00)
[2021-12-30] MEDS ORDERED: DEXAMETHASONE 4 MG TABLET (FP) PO ONE ×2 (10:00→13:30)
[2021-12-30 12:16] LABS: BASO % 0.5 % (0-2.0); EOS % 2.1 % (0-4.5); HEMATOCRIT 33.8 % (35.4-49); HEMOGLOBIN 11.1 GM/dL (11.7-16.9); LYMPH % 15.9 % (8-40); MCH 33.6 pg (25.7-33.7); MCHC 32.9 g/dl (32.0-35.9); MEAN PLT VOLUME 10.9 fl (7.5-11.1); NEUT % 68.5 % (42.8-82.8); PLATELET COUNT 130 10^3/uL (134-434); RBC 3.32 M/mm3 (4.00-5.60); WHITE BLOOD COUNT 6.4 K/mm3 (4.0-10.0)
[2021-12-30 12:40] LABS: BLOOD UREA NITROGEN 18.6 mg/dL (7-18); CALCIUM 8.5 mg/dL (8.5-10.1)
[2021-12-30 12:44] LABS: ALBUMIN 3.2 g/dl (3.4-5.0); CREATININE 0.9 mg/dL (0.55-1.3)
[2021-12-30 12:45] LABS: MAGNESIUM 1.8 mg/dL (1.8-2.4)
[2021-12-30 12:46] LABS: BILIRUBIN,DIRECT 0.2 mg/dL (0.0-0.2); URIC ACID 4.8 mg/dL (2.6-7.2)
[2021-12-30 12:47] LABS: BILIRUBIN,TOTAL 0.3 mg/dL (0.2-1)
[2021-12-30 12:48] LABS: TOT PROT 6.3 g/dl (6.4-8.2)
[2021-12-30 17:00] VITALS: BP 112/55; PULSE 91; RESP 16; TEMP 98.3
== END 2021-12-30 13:55 | disposition home or self-care (01) ==
LOC: JONCCHEMO 07:37
PROVIDERS: ATTEND Internal Medicine Hematology & Oncology
DX: Z51.11 Encounter for antineoplastic chemotherapy (principal); C90.00 Multiple myeloma not having achieved remission
CPT/HCPCS: 36415; 80048; 80076; 83615; 83735; 84550; 85025; 96401; J9044

== ENCOUNTER 2022-01-06 10:37 | Day surgery (SDC) | payer OTHER, MEDICARE ==
[2022-01-06 11:08] LABS: BASO % 0.5 % (0-2.0); EOS % 0.4 % (0-4.5); HEMATOCRIT 30.1 % (35.4-49); HEMOGLOBIN 10.5 GM/dL (11.7-16.9); LYMPH % 17.3 % (8-40); MCH 35.4 pg (25.7-33.7); MEAN CELL VOLUME 101.3 fl (80-96); MEAN PLT VOLUME 9.6 fl (7.5-11.1); MONO % 13.5 % (3.8-10.2); NEUT % 68.3 % (42.8-82.8); PLATELET COUNT 118 10^3/uL (134-434); RBC 2.97 M/mm3 (4.00-5.60); RDW 15.7 % (11.9-15.9); WHITE BLOOD COUNT 6.1 K/mm3 (4.0-10.0)
[2022-01-06 11:36] LABS: BLOOD UREA NITROGEN 23.6 mg/dL (7-18)
[2022-01-06 11:37] LABS: ALBUMIN 3.1 g/dl (3.4-5.0); CALCIUM 8.7 mg/dL (8.5-10.1)
[2022-01-06 11:39] LABS: URIC ACID 5.2 mg/dL (2.6-7.2)
[2022-01-06 11:40] LABS: BILIRUBIN,DIRECT 0.1 mg/dL (0.0-0.2); CREATININE 0.9 mg/dL (0.55-1.3)
[2022-01-06 11:42] LABS: BILIRUBIN,TOTAL 0.3 mg/dL (0.2-1); TOT PROT 6.1 g/dl (6.4-8.2)
[2022-01-06] MEDS ORDERED: DEXAMETHASONE SODIUM PHOSPHATE IVPB ONE (12:00)
[2022-01-06] MEDS ORDERED: DIPHENHYDRAMINE IVPB ONE (12:00)
[2022-01-06] MEDS ORDERED: SODIUM CHLORIDE IVPB ONE (12:00)
[2022-01-06] MEDS ORDERED: ACETAMINOPHEN 325 MG TABLET (FP) PO ONE (12:00)
[2022-01-06] MEDS ORDERED: DARATUMUMAB-HYALURONIDASE-FIHJ (FASPRO) 15 ML VIAL SQ ONE (12:15)
[2022-01-06] MEDS ORDERED: SODIUM CHLORIDE 250 ML IV ONE (12:30)
[2022-01-06 15:48] VITALS: TEMP 98.1
[2022-01-06 16:02] VITALS: BP 126/56; PULSE 58; RESP 18
== END 2022-01-06 15:30 | disposition home or self-care (01) ==
LOC: JONCCHEMO 10:37
PROVIDERS: ATTEND Internal Medicine Hematology & Oncology
PROC: 3E01305 Introduction of Other Antineoplastic into Subcutaneous Tissue, Percutaneous Approach (ICD-10-PCS; principal; 2022-01-06)
PROC: 3E033GC Introduction of Other Therapeutic Substance into Peripheral Vein, Percutaneous Approach (ICD-10-PCS; 2022-01-06)
DX: Z51.11 Encounter for antineoplastic chemotherapy (principal); C90.00 Multiple myeloma not having achieved remission
CPT/HCPCS: 36415; 80048; 80076; 83615; 83735; 84550; 85025; 96361; 96365; J9144

== ENCOUNTER 2022-01-13 10:40 | Day surgery (SDC) | payer OTHER, MEDICARE ==
[~2022-01-13 10:40] MED LIST changes: +ACETAMINOPHEN 325 MG TABLET (FP) PO ONE; -BORTEZOMIB (VELCADE) 2.5 MG/ML SUB-Q INJECTION SQ ONE; +DARATUMUMAB-HYALURONIDASE-FIHJ (FASPRO) 15 ML VIAL SQ ONE; -DENOSUMAB 120 MG/1.7 ML VIAL SQ ONE; -DEXAMETHASONE 4 MG TABLET (FP) PO ONE; +DEXAMETHASONE SODIUM PHOSPHATE IVPB ONE; +DIPHENHYDRAMINE IVPB ONE; -GRANISETRON HCL 1 MG TABLET PO ONE; +SODIUM CHLORIDE 250 ML IV ONE; +SODIUM CHLORIDE IVPB ONE
[2022-01-13 11:10] LABS: BASO % 0.9 % (0-2.0); EOS % 1.7 % (0-4.5); HEMATOCRIT 33.2 % (35.4-49); HEMOGLOBIN 11.4 GM/dL (11.7-16.9); MCH 34.9 pg (25.7-33.7); MCHC 34.3 g/dl (32.0-35.9); MEAN CELL VOLUME 101.7 fl (80-96); MEAN PLT VOLUME 9.6 fl (7.5-11.1); MONO % 8.6 % (3.8-10.2); NEUT % 73.8 % (42.8-82.8); PLATELET COUNT 167 10^3/uL (134-434); RBC 3.27 M/mm3 (4.00-5.60); RDW 15.7 % (11.9-15.9); WHITE BLOOD COUNT 5.2 K/mm3 (4.0-10.0)
[2022-01-13 11:33] LABS: ALBUMIN 3.2 g/dl (3.4-5.0); BLOOD UREA NITROGEN 17.8 mg/dL (7-18); CALCIUM 9.2 mg/dL (8.5-10.1); MAGNESIUM 1.9 mg/dL (1.8-2.4)
[2022-01-13 11:36] LABS: BILIRUBIN,DIRECT 0.1 mg/dL (0.0-0.2); CREATININE 1.1 mg/dL (0.55-1.3); URIC ACID 5.1 mg/dL (2.6-7.2)
[2022-01-13 11:38] LABS: BILIRUBIN,TOTAL 0.4 mg/dL (0.2-1); TOT PROT 6.6 g/dl (6.4-8.2)
[2022-01-13 16:59] VITALS: TEMP 98.5
[2022-01-13 17:10] VITALS: BP 114/56; PULSE 74; RESP 18
[2022-01-16 06:16] LABS: FREE KAP CHN UR 164.64 mg/L (1.17-86.46); KAPPA LAMBDA RATIO URIN 56.58 (1.83-14.26)
[2022-01-16 10:06] LABS: BETA-2-MICROGLOBULIN 3.5 mg/L (0.6-2.4)
== END 2022-01-13 14:30 | disposition home or self-care (01) ==
LOC: JONCCHEMO 10:40
PROVIDERS: ATTEND Internal Medicine Hematology & Oncology
PROC: 3E03305 Introduction of Other Antineoplastic into Peripheral Vein, Percutaneous Approach (ICD-10-PCS; principal; 2022-01-13)
PROC: 3E0333Z Introduction of Anti-inflammatory into Peripheral Vein, Percutaneous Approach (ICD-10-PCS; 2022-01-13)
PROC: 3E0337Z Introduction of Electrolytic and Water Balance Substance into Peripheral Vein, Percutaneous Approach (ICD-10-PCS; 2022-01-13)
DX: Z51.11 Encounter for antineoplastic chemotherapy (principal); C90.00 Multiple myeloma not having achieved remission
CPT/HCPCS: 36415; 80048; 80076; 82232; 82784; 83615; 83735; 83883; 84155; 84165; 84550; 85025; 86335; 96361; 96365; 96401; J9144

== ENCOUNTER 2022-01-20 10:04 | Day surgery (SDC) | payer OTHER, MEDICARE ==
[2022-01-20 10:29] LABS: BASO % 0.8 % (0-2.0); EOS % 1.8 % (0-4.5); HEMATOCRIT 32.7 % (35.4-49); HEMOGLOBIN 10.8 GM/dL (11.7-16.9); LYMPH % 17.8 % (8-40); MCH 33.5 pg (25.7-33.7); MCHC 33.1 g/dl (32.0-35.9); MEAN CELL VOLUME 101.4 fl (80-96); MEAN PLT VOLUME 10.8 fl (7.5-11.1); MONO % 17.4 % (3.8-10.2); NEUT % 62.2 % (42.8-82.8); PLATELET COUNT 110 10^3/uL (134-434); RBC 3.23 M/mm3 (4.00-5.60); RDW 15.1 % (11.9-15.9)
[2022-01-20 10:46] LABS: MAGNESIUM 1.9 mg/dL (1.8-2.4)
[2022-01-20 10:47] LABS: BLOOD UREA NITROGEN 18.8 mg/dL (7-18); CALCIUM 8.5 mg/dL (8.5-10.1)
[2022-01-20 10:48] LABS: ALBUMIN 3.2 g/dl (3.4-5.0)
[2022-01-20 10:49] LABS: URIC ACID 4.8 mg/dL (2.6-7.2)
[2022-01-20 10:50] LABS: BILIRUBIN,DIRECT 0.1 mg/dL (0.0-0.2); CREATININE 0.9 mg/dL (0.55-1.3)
[2022-01-20 10:51] LABS: TOT PROT 6.5 g/dl (6.4-8.2)
[2022-01-20 10:52] LABS: BILIRUBIN,TOTAL 0.3 mg/dL (0.2-1)
[2022-01-20] MEDS ORDERED: SODIUM CHLORIDE IVPB ONE (11:00)
[2022-01-20] MEDS ORDERED: ACETAMINOPHEN 325 MG TABLET (FP) PO ONE (11:00)
[2022-01-20] MEDS ORDERED: DIPHENHYDRAMINE IVPB ONE (11:00)
[2022-01-20] MEDS ORDERED: DEXAMETHASONE IVPB ONE (11:00)
[2022-01-20] MEDS ORDERED: DARATUMUMAB-HYALURONIDASE-FIHJ (FASPRO) 15 ML VIAL SQ ONE (11:30)
[2022-01-20] MEDS ORDERED: SODIUM CHLORIDE 250 ML IV ONE (11:30)
[2022-01-20 16:51] VITALS: TEMP 98.1
[2022-01-20 16:52] VITALS: BP 117/59; PULSE 82; RESP 18
== END 2022-01-20 13:23 | disposition home or self-care (01) ==
LOC: JONCCHEMO 10:04
PROVIDERS: ATTEND Internal Medicine Hematology & Oncology
PROC: 3E01305 Introduction of Other Antineoplastic into Subcutaneous Tissue, Percutaneous Approach (ICD-10-PCS; principal; 2022-01-20)
PROC: 3E033GC Introduction of Other Therapeutic Substance into Peripheral Vein, Percutaneous Approach (ICD-10-PCS; 2022-01-20)
DX: Z51.11 Encounter for antineoplastic chemotherapy (principal); C90.00 Multiple myeloma not having achieved remission
CPT/HCPCS: 36415; 80048; 80076; 83615; 83735; 84550; 85025; 96365; 96401; J1100; J9144

== ENCOUNTER 2022-01-27 08:41 | Day surgery (SDC) | payer OTHER, MEDICARE ==
[2022-01-27 09:51] LABS: BASO % 0.7 % (0-2.0); EOS % 1.6 % (0-4.5); HEMATOCRIT 30.4 % (35.4-49); HEMOGLOBIN 10.2 GM/dL (11.7-16.9); LYMPH % 33.4 % (8-40); MCH 33.7 pg (25.7-33.7); MCHC 33.5 g/dl (32.0-35.9); MEAN CELL VOLUME 100.8 fl (80-96); MEAN PLT VOLUME 9.3 fl (7.5-11.1); MONO % 16.5 % (3.8-10.2); NEUT % 47.8 % (42.8-82.8); PLATELET COUNT 126 10^3/uL (134-434); RBC 3.01 M/mm3 (4.00-5.60); RDW 15.4 % (11.9-15.9); WHITE BLOOD COUNT 3.5 K/mm3 (4.0-10.0)
[2022-01-27] MEDS ORDERED: SODIUM CHLORIDE IVPB ONE (10:00)
[2022-01-27] MEDS ORDERED: DEXAMETHASONE SODIUM PHOSPHATE IVPB ONE (10:00)
[2022-01-27] MEDS ORDERED: DIPHENHYDRAMINE IVPB ONE (10:00)
[2022-01-27] MEDS ORDERED: ACETAMINOPHEN 325 MG TABLET (FP) PO ONE (10:00)
[2022-01-27 10:12] LABS: MAGNESIUM 1.8 mg/dL (1.8-2.4)
[2022-01-27 10:13] LABS: CALCIUM 8.6 mg/dL (8.5-10.1)
[2022-01-27 10:14] LABS: BLOOD UREA NITROGEN 15.1 mg/dL (7-18)
[2022-01-27 10:16] LABS: BILIRUBIN,DIRECT 0.1 mg/dL (0.0-0.2); CREATININE 0.9 mg/dL (0.55-1.3)
[2022-01-27 10:17] LABS: TOT PROT 6.2 g/dl (6.4-8.2)
[2022-01-27 10:18] LABS: BILIRUBIN,TOTAL 0.3 mg/dL (0.2-1)
[2022-01-27] MEDS ORDERED: DARATUMUMAB-HYALURONIDASE-FIHJ (FASPRO) 15 ML VIAL SQ ONE (10:30)
[2022-01-27] MEDS ORDERED: SODIUM CHLORIDE 250 ML IV ONE (10:30)
[2022-01-27 16:37] VITALS: RESP 18; TEMP 98.1
[2022-01-27 16:45] VITALS: BP 128/65; PULSE 66
== END 2022-01-27 13:15 | disposition home or self-care (01) ==
LOC: JONCCHEMO 08:41
PROVIDERS: ATTEND Internal Medicine Hematology & Oncology
DX: Z51.11 Encounter for antineoplastic chemotherapy (principal); C90.00 Multiple myeloma not having achieved remission
CPT/HCPCS: 36415; 80048; 80076; 83615; 83735; 84550; 85025; 96401; J9144

== ENCOUNTER 2022-02-03 09:50 | Day surgery (SDC) | payer OTHER, MEDICARE ==
[2022-02-03] MEDS ORDERED: DARATUMUMAB-HYALURONIDASE-FIHJ (FASPRO) 15 ML VIAL SQ ONE (10:00)
[2022-02-03 10:28] LABS: BASO % 0.8 % (0-2.0); HEMATOCRIT 33.6 % (35.4-49); HEMOGLOBIN 11.3 GM/dL (11.7-16.9); LYMPH % 27.2 % (8-40); MCH 33.7 pg (25.7-33.7); MCHC 33.5 g/dl (32.0-35.9); MEAN CELL VOLUME 100.6 fl (80-96); MEAN PLT VOLUME 10.3 fl (7.5-11.1); MONO % 12.7 % (3.8-10.2); NEUT % 56.3 % (42.8-82.8); PLATELET COUNT 178 10^3/uL (134-434); RBC 3.34 M/mm3 (4.00-5.60); RDW 15.8 % (11.9-15.9); WHITE BLOOD COUNT 3.2 K/mm3 (4.0-10.0)
[2022-02-03 10:52] LABS: CALCIUM 8.4 mg/dL (8.5-10.1)
[2022-02-03 10:53] LABS: ALBUMIN 3.1 g/dl (3.4-5.0); BLOOD UREA NITROGEN 17.6 mg/dL (7-18); MAGNESIUM 1.8 mg/dL (1.8-2.4)
[2022-02-03 10:54] LABS: BILIRUBIN,DIRECT 0.2 mg/dL (0.0-0.2); URIC ACID 5.4 mg/dL (2.6-7.2)
[2022-02-03 10:56] LABS: CREATININE 1.2 mg/dL (0.55-1.3)
[2022-02-03 10:57] LABS: BILIRUBIN,TOTAL 0.6 mg/dL (0.2-1); TOT PROT 6.7 g/dl (6.4-8.2)
[2022-02-03 16:00] VITALS: BP 108/43; PULSE 70; RESP 20; TEMP 97.5
== END 2022-02-03 12:45 | disposition home or self-care (01) ==
LOC: JONCCHEMO 09:50
PROVIDERS: ATTEND Internal Medicine Hematology & Oncology
PROC: 3E033GC Introduction of Other Therapeutic Substance into Peripheral Vein, Percutaneous Approach (ICD-10-PCS; principal; 2022-02-03)
PROC: 3E01305 Introduction of Other Antineoplastic into Subcutaneous Tissue, Percutaneous Approach (ICD-10-PCS; 2022-02-03)
DX: Z51.11 Encounter for antineoplastic chemotherapy (principal); C90.00 Multiple myeloma not having achieved remission
CPT/HCPCS: 36415; 80048; 80076; 83615; 83735; 84550; 85025; 96365; 96401; J9144

== ENCOUNTER 2022-02-24 09:53 | Day surgery (SDC) | payer OTHER, MEDICARE ==
[~2022-02-24 09:53] MED LIST changes: -DARATUMUMAB-HYALURONIDASE-FIHJ (FASPRO) 15 ML VIAL SQ ONE
[2022-02-24] MEDS ORDERED: DARATUMUMAB-HYALURONIDASE-FIHJ (FASPRO) 15 ML VIAL SQ ONE (10:00)
[2022-02-24 11:00] LABS: BASO % 1.2 % (0-2.0); EOS % 1.3 % (0-4.5); HEMOGLOBIN 10.1 GM/dL (11.7-16.9); LYMPH % 31.4 % (8-40); MCH 34.5 pg (25.7-33.7); MCHC 34.7 g/dl (32.0-35.9); MEAN CELL VOLUME 99.5 fl (80-96); MEAN PLT VOLUME 10.2 fl (7.5-11.1); MONO % 12.3 % (3.8-10.2); NEUT % 53.8 % (42.8-82.8); PLATELET COUNT 186 10^3/uL (134-434); RBC 2.92 M/mm3 (4.00-5.60); WHITE BLOOD COUNT 4.1 K/mm3 (4.0-10.0)
[2022-02-24 11:22] LABS: BLOOD UREA NITROGEN 14.3 mg/dL (7-18)
[2022-02-24 11:25] LABS: BILIRUBIN,DIRECT 0.1 mg/dL (0.0-0.2); CREATININE 1.1 mg/dL (0.55-1.3); URIC ACID 6.7 mg/dL (2.6-7.2)
[2022-02-24 11:27] LABS: BILIRUBIN,TOTAL 0.3 mg/dL (0.2-1); TOT PROT 7.6 g/dl (6.4-8.2)
[2022-02-24 16:21] VITALS: BP 111/70; PULSE 88; RESP 20; TEMP 98
== END 2022-02-24 13:15 | disposition home or self-care (01) ==
LOC: JONCCHEMO 09:53
PROVIDERS: ATTEND Internal Medicine Hematology & Oncology
DX: Z51.11 Encounter for antineoplastic chemotherapy (principal); C90.00 Multiple myeloma not having achieved remission
CPT/HCPCS: 36415; 80048; 80076; 83615; 84550; 85025; 96401; J9144

== ENCOUNTER 2022-03-03 10:49 | Day surgery (SDC) | payer OTHER, MEDICARE ==
[~2022-03-03 10:49] MED LIST changes: +DARATUMUMAB-HYALURONIDASE-FIHJ (FASPRO) 15 ML VIAL SQ ONE
[2022-03-03 11:43] LABS: BASO % 0.5 % (0-2.0); EOS % 0.9 % (0-4.5); HEMATOCRIT 30.4 % (35.4-49); HEMOGLOBIN 10.3 GM/dL (11.7-16.9); LYMPH % 21.9 % (8-40); MCH 34.1 pg (25.7-33.7); MCHC 33.9 g/dl (32.0-35.9); MEAN CELL VOLUME 100.4 fl (80-96); MEAN PLT VOLUME 11.1 fl (7.5-11.1); MONO % 15.1 % (3.8-10.2); NEUT % 61.6 % (42.8-82.8); PLATELET COUNT 115 10^3/uL (134-434); RBC 3.03 M/mm3 (4.00-5.60); RDW 16.4 % (11.9-15.9); WHITE BLOOD COUNT 5.3 K/mm3 (4.0-10.0)
[2022-03-03 12:07] LABS: CALCIUM 8.6 mg/dL (8.5-10.1)
[2022-03-03 12:08] LABS: ALBUMIN 2.8 g/dl (3.4-5.0); BLOOD UREA NITROGEN 19.2 mg/dL (7-18); MAGNESIUM 1.7 mg/dL (1.8-2.4)
[2022-03-03 12:10] LABS: BILIRUBIN,DIRECT 0.1 mg/dL (0.0-0.2); URIC ACID 6.5 mg/dL (2.6-7.2)
[2022-03-03 12:11] LABS: CREATININE 1.2 mg/dL (0.55-1.3)
[2022-03-03 12:12] LABS: BILIRUBIN,TOTAL 0.2 mg/dL (0.2-1); TOT PROT 8.1 g/dl (6.4-8.2)
[2022-03-03] MEDS ORDERED: MAGNESIUM OXIDE 400 MG TABLET (FP) PO ONE (12:17)
[2022-03-03 16:45] VITALS: RESP 18; TEMP 97.5
[2022-03-03 16:52] VITALS: BP 124/70; PULSE 86
[2022-03-04 18:07] LABS: IMMUNOGLOBULIN D < 1.30 mg/dL (<14.11)
== END 2022-03-03 13:45 | disposition home or self-care (01) ==
LOC: JONCCHEMO 10:49
PROVIDERS: ATTEND Internal Medicine Hematology & Oncology
PROC: 3E01305 Introduction of Other Antineoplastic into Subcutaneous Tissue, Percutaneous Approach (ICD-10-PCS; principal; 2022-03-03)
PROC: 3E033GC Introduction of Other Therapeutic Substance into Peripheral Vein, Percutaneous Approach (ICD-10-PCS; 2022-03-03)
DX: Z51.11 Encounter for antineoplastic chemotherapy (principal); C90.00 Multiple myeloma not having achieved remission
CPT/HCPCS: 36415; 80048; 80076; 82784; 82785; 83615; 83735; 84550; 85025; 96365; 96401; J9144

== ENCOUNTER 2022-03-10 10:14 | Day surgery (SDC) | payer OTHER, MEDICARE ==
[~2022-03-10 10:14] MED LIST changes: -DARATUMUMAB-HYALURONIDASE-FIHJ (FASPRO) 15 ML VIAL SQ ONE
[2022-03-10 10:59] LABS: BASO % 0.1 % (0-2.0); EOS % 1.3 % (0-4.5); HEMOGLOBIN 10.2 GM/dL (11.7-16.9); LYMPH % 13.6 % (8-40); MCH 34.4 pg (25.7-33.7); MCHC 34.1 g/dl (32.0-35.9); MEAN PLT VOLUME 12.6 fl (7.5-11.1); MONO % 11.8 % (3.8-10.2); NEUT % 73.2 % (42.8-82.8); PLATELET COUNT 49 10^3/uL (134-434); RBC 2.98 M/mm3 (4.00-5.60); RDW 15.6 % (11.9-15.9); WHITE BLOOD COUNT 7.5 K/mm3 (4.0-10.0)
[2022-03-10 11:26] LABS: CALCIUM 9.5 mg/dL (8.5-10.1)
[2022-03-10 11:27] LABS: BLOOD UREA NITROGEN 30.9 mg/dL (7-18); MAGNESIUM 1.7 mg/dL (1.8-2.4)
[2022-03-10 11:30] LABS: CREATININE 1.2 mg/dL (0.55-1.3)
[2022-03-10 11:31] LABS: TOT PROT 8.4 g/dl (6.4-8.2)
[2022-03-10 11:32] LABS: BILIRUBIN,TOTAL 0.6 mg/dL (0.2-1)
[2022-03-10 11:33] LABS: URIC ACID 6.1 mg/dL (2.6-7.2)
[2022-03-10] MEDS ORDERED: DARATUMUMAB-HYALURONIDASE-FIHJ (FASPRO) 15 ML VIAL SQ ONE (14:15)
== END 2022-03-10 11:30 | disposition home or self-care (01) ==
LOC: JONCCHEMO 10:14
PROVIDERS: ATTEND Internal Medicine Hematology & Oncology
DX: Z53.8 Procedure and treatment not carried out for other reasons (principal)
CPT/HCPCS: 36415; 80053; 82607; 82728; 83540; 83550; 83615; 83735; 84439; 84443; 84550; 85025; 96365

== ENCOUNTER 2022-03-17 11:10 | Day surgery (SDC) | payer OTHER, MEDICARE ==
[2022-03-17 10:58] LABS: HEMATOCRIT 30.3 % (35.4-49); HEMOGLOBIN 10.2 GM/dL (11.7-16.9); MCH 33.9 pg (25.7-33.7); MCHC 33.5 g/dl (32.0-35.9); MEAN CELL VOLUME 101.2 fl (80-96); MEAN PLT VOLUME 11.2 fl (7.5-11.1); PLATELET COUNT 127 10^3/uL (134-434); RDW 16.1 % (11.9-15.9); WHITE BLOOD COUNT 6.7 K/mm3 (4.0-10.0)
[~2022-03-17 11:10] MED LIST changes: -ACETAMINOPHEN 325 MG TABLET (FP) PO ONE; +CYANOCOBALAMIN (VITAMIN B-12) 1000 MCG/1 ML VIAL IM ONE; +D5-1/2NS+20 MEQ KCL - 20 MEQ/1,000 ML INFUS.BAG IV SCH; +DARATUMUMAB-HYALURONIDASE-FIHJ (FASPRO) 15 ML VIAL SQ ONE
[2022-03-17 11:24] LABS: MAGNESIUM 1.7 mg/dL (1.8-2.4)
[2022-03-17 11:26] LABS: ALBUMIN 2.8 g/dl (3.4-5.0); BLOOD UREA NITROGEN 40.9 mg/dL (7-18)
[2022-03-17 11:27] LABS: URIC ACID 9.4 mg/dL (2.6-7.2)
[2022-03-17 11:28] LABS: BILIRUBIN,DIRECT 0.1 mg/dL (0.0-0.2); CREATININE 2.2 mg/dL (0.55-1.3)
[2022-03-17 11:29] LABS: ANISOCYTOSIS 1+; MACROCYTOSIS 1+; TARGET CELLS 1+; TOT PROT 9.8 g/dl (6.4-8.2)
[2022-03-17 11:31] LABS: BILIRUBIN,TOTAL 0.6 mg/dL (0.2-1)
[2022-03-17] MEDS ORDERED: MAGNESIUM 1GM/D5W - 1 GM/100 ML IVPB IVPB ONE (11:45)
[2022-03-17 14:53] VITALS: RESP 20; TEMP 97.9
[2022-03-17 15:14] VITALS: BP 90/54; PULSE 104
== END 2022-03-17 15:00 | disposition home or self-care (01) ==
LOC: JONCCHEMO 11:10
PROVIDERS: ATTEND Internal Medicine Hematology & Oncology
PROC: 3E033GC Introduction of Other Therapeutic Substance into Peripheral Vein, Percutaneous Approach (ICD-10-PCS; principal; 2022-03-17)
PROC: 3E013GC Introduction of Other Therapeutic Substance into Subcutaneous Tissue, Percutaneous Approach (ICD-10-PCS; 2022-03-17)
DX: C90.00 Multiple myeloma not having achieved remission (principal); Z76.89 Persons encountering health services in other specified circumstances
CPT/HCPCS: 36415; 80048; 80076; 82150; 83615; 83690; 83735; 84550; 85025; 96365; 96372

== ENCOUNTER 2022-03-22 11:20 | Inpatient (IN) | payer OTHER, MEDICARE ==
[2022-03-22 11:56] VITALS: BMI 24.1
[2022-03-22] MEDS ORDERED: SODIUM CHLORIDE 1,000 ML IV STA (12:54)
[2022-03-22 14:45] LABS: HEMATOCRIT 26.4 % (35.4-49); HEMOGLOBIN 8.9 GM/dL (11.7-16.9); MCH 34.1 pg (25.7-33.7); MCHC 33.8 g/dl (32.0-35.9); MEAN CELL VOLUME 100.7 fl (80-96); MEAN PLT VOLUME 11.4 fl (7.5-11.1); PLATELET COUNT 99 10^3/uL (134-434); RBC 2.62 M/mm3 (4.00-5.60); RDW 17.3 % (11.9-15.9); WHITE BLOOD COUNT 3.3 K/mm3 (4.0-10.0)
[2022-03-22 14:52] LABS: INR 1.45 (0.83-1.09); PROTHROMBIN TIME (PATIENT) 16.7 SEC (9.7-13.0)
[2022-03-22 14:55] LABS: ACTIVATED PTT 26.4 SECONDS (25.2-36.5)
[2022-03-22 15:09] LABS: CHLORIDE 102 mmol/L (98-107); SODIUM 138 mmol/L (136-145)
[2022-03-22 15:11] LABS: ALBUMIN 2.5 g/dl (3.4-5.0); ANION GAP 10 MMOL/L (8-16); BLOOD UREA NITROGEN 45.7 mg/dL (7-18); CO2 26 mmol/L (21-32)
[2022-03-22 15:12] LABS: GLUCOSE,RANDOM 121 mg/dL (74-106)
[2022-03-22 15:14] LABS: CREATININE 2.5 mg/dL (0.55-1.3)
[2022-03-22 15:15] LABS: SGOT/AST 8 U/L (15-37); SGPT/ALT 19 U/L (13-61)
[2022-03-22 15:16] LABS: BILIRUBIN,TOTAL 0.5 mg/dL (0.2-1); TOT PROT 10.2 g/dl (6.4-8.2)
[2022-03-22 15:17] LABS: ALK PHOS 51 U/L (45-117)
[2022-03-22 15:19] LABS: N-TERMINAL BNP 1385.5 pg/ml (5-450)
[2022-03-22 15:22] LABS: ANISOCYTOSIS 0; MACROCYTOSIS 1+
[2022-03-22 15:27] LABS: CALCIUM 11.6 mg/dL (8.5-10.1)
[2022-03-22] MEDS ORDERED: SODIUM CHLORIDE 1,000 ML IV SCH (19:00)
[2022-03-22 22:54] LABS: EPI CELLS 11 /uL (0-25.1); HYALINE CASTS 2 /uL (0-3.1); URINE APPEARANCE CLEAR; URINE BACTERIA 20 /uL (0-1359); URINE BILIRUBIN NEGATIVE (NEGATIVE); URINE COLOR YELLOW; URINE GLUCOSE (UA) NEGATIVE (NEGATIVE); URINE KETONE NEGATIVE (NEGATIVE); URINE LEUK ESTERASE NEGATIVE (NEGATIVE); URINE NITRITE NEGATIVE (NEGATIVE); URINE PROTEIN 1+ (NEGATIVE); URINE RBC 22 /uL (0-23.9); URINE UROBILINOGEN 0.2 mg/dL (0.2-1.0); URINE WBC 5 /uL (0-25.8)
[2022-03-23 09:01] LABS: HEMATOCRIT 23.3 % (35.4-49); HEMOGLOBIN 7.9 GM/dL (11.7-16.9); INR 1.58 (0.83-1.09); MCHC 33.8 g/dl (32.0-35.9); MEAN CELL VOLUME 100.4 fl (80-96); PLATELET COUNT 90 10^3/uL (134-434); PROTHROMBIN TIME (PATIENT) 18.3 SEC (9.7-13.0); RBC 2.32 M/mm3 (4.00-5.60); RDW 17.4 % (11.9-15.9); WHITE BLOOD COUNT 2.7 K/mm3 (4.0-10.0)
[2022-03-23 09:25] LABS: CALCIUM 10.6 mg/dL (8.5-10.1)
[2022-03-23 09:26] LABS: MAGNESIUM 1.6 mg/dL (1.8-2.4)
[2022-03-23 09:29] LABS: CREATININE 1.7 mg/dL (0.55-1.3); PHOSPHOROUS 3.9 mg/dL (2.5-4.9)
[2022-03-23 09:30] LABS: BILIRUBIN,TOTAL 0.5 mg/dL (0.2-1); TOT PROT 8.6 g/dl (6.4-8.2)
[2022-03-23 10:09] LABS: ANISOCYTOSIS 0; MACROCYTOSIS 0
[2022-03-23] MEDS ORDERED: DEXTROSE 5%-LACTATED RINGERS 1,000 ML IV SCH (12:15)
[2022-03-23] MEDS ORDERED: ACETAMINOPHEN 325 MG TABLET (FP) PO PRN (12:15)
[2022-03-23] MEDS: DEXTROSE 5%-LACTATED RINGERS 1,000 ML IV SCH (12:23)
[2022-03-23] MEDS: CYANOCOBALAMIN 1,000 MCG TABLET (FP) PO SCH (13:32)
[2022-03-23] MEDS ORDERED: MAGNESIUM SULF 50% (8.12 MEQ/2 ML-1 GM VIAL) IVPB ONE (14:15)
[2022-03-23] MEDS ORDERED: MAGNESIUM SULF 50% (8.12 MEQ/2 ML-1 GM VIAL) ONE (14:42)
[2022-03-23] MEDS ORDERED: CALCIUM 250MG/VIT-D 125 UNITS 1 COMBO TABLET PO SCH (22:00)
[2022-03-24] MEDS: CYANOCOBALAMIN 1,000 MCG TABLET (FP) PO SCH (10:03)
[2022-03-24 10:04] LABS: HEMATOCRIT 23.9 % (35.4-49); HEMOGLOBIN 8.1 GM/dL (11.7-16.9); MCH 34.2 pg (25.7-33.7); MCHC 33.9 g/dl (32.0-35.9); MEAN CELL VOLUME 100.9 fl (80-96); MEAN PLT VOLUME 11.4 fl (7.5-11.1); PLATELET COUNT 95 10^3/uL (134-434); RBC 2.37 M/mm3 (4.00-5.60); RDW 17.4 % (11.9-15.9); WHITE BLOOD COUNT 3.1 K/mm3 (4.0-10.0)
[2022-03-24] MEDS: PANTOPRAZOLE 40 MG TABLET PO SCH (10:04)
[2022-03-24 10:31] LABS: ALBUMIN 2.1 g/dl (3.4-5.0); CALCIUM 10.6 mg/dL (8.5-10.1)
[2022-03-24 10:32] LABS: BLOOD UREA NITROGEN 32.2 mg/dL (7-18); MAGNESIUM 1.8 mg/dL (1.8-2.4)
[2022-03-24 10:34] LABS: CREATININE 1.4 mg/dL (0.55-1.3); PHOSPHOROUS 3.4 mg/dL (2.5-4.9)
[2022-03-24 10:36] LABS: BILIRUBIN,TOTAL 0.5 mg/dL (0.2-1)
[2022-03-24 10:38] LABS: ANISOCYTOSIS 1+; MACROCYTOSIS 1+
[2022-03-24] MEDS: POTASSIUM CHLORIDE 20 MEQ in DEXTROSE 5%-LACTATED RINGERS 990 ML IV SCH (16:30)
[2022-03-24 19:42] LABS: EPI CELLS 10 /uL (0-25.1); HYALINE CASTS 3 /uL (0-3.1); PH,URINE 5.5 (5.0-8.0); URINE APPEARANCE CLEAR; URINE BACTERIA 5 /uL (0-1359); URINE BILIRUBIN NEGATIVE (NEGATIVE); URINE COLOR ORANGE; URINE GLUCOSE (UA) NEGATIVE (NEGATIVE); URINE KETONE NEGATIVE (NEGATIVE); URINE LEUK ESTERASE NEGATIVE (NEGATIVE); URINE NITRITE NEGATIVE (NEGATIVE); URINE PROTEIN 1+ (NEGATIVE); URINE RBC 39 /uL (0-23.9); URINE UROBILINOGEN 0.2 mg/dL (0.2-1.0); URINE WBC 4 /uL (0-25.8)
[2022-03-25] MEDS: POTASSIUM CHLORIDE 20 MEQ in DEXTROSE 5%-LACTATED RINGERS 990 ML IV SCH ×3 (03:10→09:55)
[2022-03-25] MEDS: TAMSULOSIN HCL 0.4 MG CAP PO SCH (09:55)
[2022-03-25] MEDS: PANTOPRAZOLE 40 MG TABLET PO SCH (09:55)
[2022-03-25] MEDS: CYANOCOBALAMIN 1,000 MCG TABLET (FP) PO SCH (09:56)
[2022-03-25] MEDS ORDERED: FAMOTIDINE 20 MG/50 ML IVPB 20 MG/50 ML MG IVPB SCH (10:15)
[2022-03-25] MEDS: DEXTROSE 5%-LACTATED RINGERS 1,000 ML IV SCH (10:33)
[2022-03-25] MEDS: PANTOPRAZOLE SODIUM 40 MG VIAL IVPUSH SCH (11:26)
[2022-03-25] MEDS: D5-1/2NS+10 MEQ KCL - 10 MEQ/1,000 ML INFUS.BAG IV SCH (11:26)
[2022-03-25 12:04] LABS: ALBUMIN 1.8 g/dl (3.4-5.0); CALCIUM 10.2 mg/dL (8.5-10.1)
[2022-03-25 12:05] LABS: BLOOD UREA NITROGEN 31.3 mg/dL (7-18)
[2022-03-25 12:07] LABS: CREATININE 1.5 mg/dL (0.55-1.3); PHOSPHOROUS 2.7 mg/dL (2.5-4.9)
[2022-03-25 12:09] LABS: BILIRUBIN,TOTAL 0.5 mg/dL (0.2-1); TOT PROT 8.2 g/dl (6.4-8.2)
[2022-03-25] MEDS: PAMIDRONATE DISODIUM 60 MG in SODIUM CHLORIDE 500 ML IVPB ONE ×2 (17:27→17:48)
[2022-03-25] MEDS ORDERED: DENOSUMAB 120 MG/1.7 ML VIAL SQ ONE (17:52)
[2022-03-26] MEDS: D5-1/2NS+10 MEQ KCL - 10 MEQ/1,000 ML INFUS.BAG IV SCH ×2 (08:46→10:45)
[2022-03-26] MEDS: TAMSULOSIN HCL 0.4 MG CAP PO SCH (09:28)
[2022-03-26] MEDS: PANTOPRAZOLE SODIUM 40 MG VIAL IVPUSH SCH (09:45)
[2022-03-26] MEDS: CYANOCOBALAMIN 1,000 MCG TABLET (FP) PO SCH (09:49)
[2022-03-26 11:01] LABS: HEMATOCRIT 20.7 % (35.4-49); MCH 34.1 pg (25.7-33.7); MEAN CELL VOLUME 100.4 fl (80-96); MEAN PLT VOLUME 10.8 fl (7.5-11.1); PLATELET COUNT 72 10^3/uL (134-434); RBC 2.06 M/mm3 (4.00-5.60); RDW 18.3 % (11.9-15.9); WHITE BLOOD COUNT 4.4 K/mm3 (4.0-10.0)
[2022-03-26 11:47] LABS: ANISOCYTOSIS 0; MACROCYTOSIS 1+
[2022-03-26 12:22] LABS: ALBUMIN 1.8 g/dl (3.4-5.0); BLOOD UREA NITROGEN 30.5 mg/dL (7-18); CALCIUM 9.2 mg/dL (8.5-10.1)
[2022-03-26 12:25] LABS: CREATININE 1.4 mg/dL (0.55-1.3)
[2022-03-26 12:27] LABS: BILIRUBIN,TOTAL 0.7 mg/dL (0.2-1); TOT PROT 8.2 g/dl (6.4-8.2)
[2022-03-26] MEDS ORDERED: KCL 10 MEQ IVPB 10 MEQ/100 ML INFUS.BAG IVPB SCH (17:45)
[2022-03-27] MEDS: TAMSULOSIN HCL 0.4 MG CAP PO SCH (08:37)
[2022-03-27] MEDS: CYANOCOBALAMIN 1,000 MCG TABLET (FP) PO SCH (10:29)
[2022-03-27] MEDS: D5-1/2NS+10 MEQ KCL - 10 MEQ/1,000 ML INFUS.BAG IV SCH ×3 (10:44→22:26)
[2022-03-27] MEDS: PANTOPRAZOLE SODIUM 40 MG VIAL IVPUSH SCH (10:44)
[2022-03-27 11:00] LABS: HEMOGLOBIN 7.1 GM/dL (11.7-16.9); MCH 33.4 pg (25.7-33.7); MCHC 33.7 g/dl (32.0-35.9); MEAN PLT VOLUME 11.5 fl (7.5-11.1); PLATELET COUNT 74 10^3/uL (134-434); RBC 2.12 M/mm3 (4.00-5.60); RDW 18.4 % (11.9-15.9); WHITE BLOOD COUNT 4.7 K/mm3 (4.0-10.0)
[2022-03-27 11:33] LABS: CALCIUM 8.5 mg/dL (8.5-10.1)
[2022-03-27 11:34] LABS: ALBUMIN 1.7 g/dl (3.4-5.0); BLOOD UREA NITROGEN 32.6 mg/dL (7-18); MAGNESIUM 1.8 mg/dL (1.8-2.4)
[2022-03-27 11:36] LABS: CREATININE 1.4 mg/dL (0.55-1.3)
[2022-03-27 11:37] LABS: BILIRUBIN,TOTAL 0.9 mg/dL (0.2-1); TOT PROT 8.2 g/dl (6.4-8.2)
[2022-03-27] MEDS ORDERED: ACETAMINOPHEN 1000 MG/100 ML BAG IVPB PRN (12:25)
[2022-03-27 12:31] LABS: ANISOCYTOSIS 2+; MACROCYTOSIS 1+
[2022-03-27 17:08] LABS: FREE KAPPA,SERUM 362.2 mg/L (3.3-19.4)
[2022-03-28 08:15] LABS: ALBUMIN 1.7 g/dl (3.4-5.0); BLOOD UREA NITROGEN 30.8 mg/dL (7-18); CALCIUM 7.9 mg/dL (8.5-10.1); MAGNESIUM 1.7 mg/dL (1.8-2.4)
[2022-03-28 08:18] LABS: CREATININE 1.3 mg/dL (0.55-1.3)
[2022-03-28 08:19] LABS: BILIRUBIN,TOTAL 0.9 mg/dL (0.2-1); TOT PROT 8.2 g/dl (6.4-8.2)
[2022-03-28 08:24] LABS: HEMATOCRIT 20.5 % (35.4-49); MCH 34.2 pg (25.7-33.7); MCHC 34.1 g/dl (32.0-35.9); MEAN CELL VOLUME 100.2 fl (80-96); MEAN PLT VOLUME 11.2 fl (7.5-11.1); PLATELET COUNT 72 10^3/uL (134-434); RBC 2.04 M/mm3 (4.00-5.60); RDW 18.6 % (11.9-15.9); WHITE BLOOD COUNT 4.9 K/mm3 (4.0-10.0)
[2022-03-28 09:32] LABS: ANISOCYTOSIS 1+; MACROCYTOSIS 0; PLATELET ESTIMATE DECREASED
[2022-03-28] MEDS: TAMSULOSIN HCL 0.4 MG CAP PO SCH (09:52)
[2022-03-28] MEDS: CYANOCOBALAMIN 1,000 MCG TABLET (FP) PO SCH (09:52)
[2022-03-28] MEDS: PANTOPRAZOLE SODIUM 40 MG VIAL IVPUSH SCH (09:52)
[2022-03-28] MEDS: D5-1/2NS+10 MEQ KCL - 10 MEQ/1,000 ML INFUS.BAG IV SCH (10:36)
[2022-03-28] MEDS ORDERED: ACETAMINOPHEN 1000 MG/100 ML BAG IVPB PRN (14:19)
[2022-03-28 14:30] LABS: ALLENS TEST POSITIVE; ARTERIAL BLOOD GAS BASE EXCESS 0.8 mmol/L (-2-2); ARTERIAL BLOOD GAS PO2 47.4 mmHg (80-100); ARTERIAL BLOOD GAS pH 7.546 (7.350-7.450)
[2022-03-29 08:42] LABS: ALBUMIN 1.7 g/dl (3.4-5.0); BLOOD UREA NITROGEN 29.2 mg/dL (7-18)
[2022-03-29 08:43] LABS: CALCIUM 7.5 mg/dL (8.5-10.1); MAGNESIUM 1.8 mg/dL (1.8-2.4)
[2022-03-29 08:45] LABS: CREATININE 1.3 mg/dL (0.55-1.3); PHOSPHOROUS 2.1 mg/dL (2.5-4.9)
[2022-03-29 08:47] LABS: TOT PROT 8.2 g/dl (6.4-8.2)
[2022-03-29] MEDS: CYANOCOBALAMIN 1,000 MCG TABLET (FP) PO SCH ×2 (09:16→09:23)
[2022-03-29] MEDS: TAMSULOSIN HCL 0.4 MG CAP PO SCH ×2 (09:16→09:22)
[2022-03-29] MEDS: PANTOPRAZOLE SODIUM 40 MG VIAL IVPUSH SCH (09:17)
[2022-03-29] MEDS ORDERED: DEXTROSE IVPB ONE (10:07)
[2022-03-29] MEDS ORDERED: WATER IVPB ONE (10:07)
[2022-03-29] MEDS ORDERED: SODIUM PHOSPHATE IVPB ONE (10:07)
[2022-03-29] MEDS: KCL 10 MEQ IVPB 10 MEQ/100 ML INFUS.BAG IVPB SCH ×3 (11:33→15:11)
[2022-03-29] MEDS ORDERED: KCL 10 MEQ IVPB 10 MEQ/100 ML INFUS.BAG IVPB SCH (13:30)
[2022-03-30 07:39] LABS: HEMATOCRIT 19.8 % (35.4-49); MCH 34.1 pg (25.7-33.7); MCHC 34.2 g/dl (32.0-35.9); MEAN CELL VOLUME 99.7 fl (80-96); MEAN PLT VOLUME 10.5 fl (7.5-11.1); PLATELET COUNT 67 10^3/uL (134-434); RBC 1.99 M/mm3 (4.00-5.60); RDW 19.2 % (11.9-15.9); WHITE BLOOD COUNT 5.1 K/mm3 (4.0-10.0)
[2022-03-30 07:47] LABS: HEMOGLOBIN 6.8 GM/dL (11.7-16.9)
[2022-03-30 08:10] LABS: ALBUMIN 1.8 g/dl (3.4-5.0); BLOOD UREA NITROGEN 26.8 mg/dL (7-18); CALCIUM 7.3 mg/dL (8.5-10.1); MAGNESIUM 1.8 mg/dL (1.8-2.4)
[2022-03-30 08:13] LABS: CREATININE 1.1 mg/dL (0.55-1.3)
[2022-03-30 08:15] LABS: BILIRUBIN,TOTAL 0.6 mg/dL (0.2-1); TOT PROT 8.5 g/dl (6.4-8.2)
[2022-03-30 09:11] LABS: ANISOCYTOSIS 1+; MACROCYTOSIS 1+
[2022-03-30] MEDS: CYANOCOBALAMIN 1,000 MCG TABLET (FP) PO SCH (09:37)
[2022-03-30] MEDS: TAMSULOSIN HCL 0.4 MG CAP PO SCH (09:37)
[2022-03-30] MEDS: PANTOPRAZOLE SODIUM 40 MG VIAL IVPUSH SCH (09:37)
[2022-03-30] MEDS: ALBUTEROL SO4 2.5/IPRATROPIUM 0.5 INH SOL 3 ML VIAL.NEB. NEB SCH ×3 (12:30→20:05)
[2022-03-30] MEDS ORDERED: DEXTROSE 5%-WATER - 1,000 ML IV SCH (14:15)
[2022-03-30] MEDS ORDERED: DEXTROSE 5%-WATER - 1,000 ML with POTASSIUM CHLORIDE 20 MEQ IV SCH (14:15)
[2022-03-30] MEDS: POTASSIUM CHLORIDE 20 MEQ in DEXTROSE 5%-WATER - 1,000 ML IV SCH (17:43)
[2022-03-30] MEDS ORDERED: ACETAMINOPHEN 325 MG TABLET (FP) PO PRN (23:31)
[2022-03-30] MEDS ORDERED: ACETAMINOPHEN 1000 MG/100 ML BAG IVPB ONE (23:54)
[2022-03-31] MEDS: POTASSIUM CHLORIDE 20 MEQ in DEXTROSE 5%-WATER - 1,000 ML IV SCH ×5 (01:20→22:07)
[2022-03-31] MEDS: ALBUTEROL SO4 2.5/IPRATROPIUM 0.5 INH SOL 3 ML VIAL.NEB. NEB SCH ×4 (08:46→20:00)
[2022-03-31] MEDS: PANTOPRAZOLE SODIUM 40 MG VIAL IVPUSH SCH (09:43)
[2022-03-31] MEDS: TAMSULOSIN HCL 0.4 MG CAP PO SCH (09:52)
[2022-03-31] MEDS: CYANOCOBALAMIN 1,000 MCG TABLET (FP) PO SCH (09:53)
[2022-03-31 10:21] LABS: HEMATOCRIT 19.4 % (35.4-49); MEAN PLT VOLUME 11.6 fl (7.5-11.1); PLATELET COUNT 66 10^3/uL (134-434); RBC 1.94 M/mm3 (4.00-5.60); RDW 19.4 % (11.9-15.9); WHITE BLOOD COUNT 4.9 K/mm3 (4.0-10.0)
[2022-03-31 10:35] LABS: CALCIUM 7.5 mg/dL (8.5-10.1)
[2022-03-31 10:36] LABS: ALBUMIN 1.8 g/dl (3.4-5.0); BLOOD UREA NITROGEN 33.1 mg/dL (7-18); MAGNESIUM 2.2 mg/dL (1.8-2.4)
[2022-03-31 10:39] LABS: CREATININE 1.3 mg/dL (0.55-1.3)
[2022-03-31 10:40] LABS: BILIRUBIN,TOTAL 0.8 mg/dL (0.2-1); TOT PROT 8.9 g/dl (6.4-8.2)
[2022-03-31 10:48] LABS: HEMOGLOBIN 6.6 GM/dL (11.7-16.9)
[2022-03-31] MEDS: ACETAMINOPHEN 1000 MG/100 ML BAG IVPB PRN ×2 (11:36→18:35)
[2022-03-31 11:40] LABS: ANISOCYTOSIS 0; HELMET CELLS 0; HOWELL-JOLLY BODIES 0; MACROCYTOSIS 0; OVALOCYTE 0; ROULEAU 0; SICKELED CELLS 0; TARGET CELLS 0; TEAR DROP CELLS 0; TOXIC GRANULATION 0
[2022-03-31] MEDS ORDERED: CEFTRIAXONE 1 GM in DEXTROSE 5%-WATER - 50 ML IVPB ONE (12:22)
[2022-03-31 12:56] LABS: LACTIC ACID 3.4 mmol/L (0.4-2.0)
[2022-03-31] MEDS ORDERED: SODIUM CHLORIDE 500 ML IV STA (14:39)
[2022-03-31 17:49] LABS: EPI CELLS 9 /uL (0-25.1); HYALINE CASTS 32 /uL (0-3.1); URINE APPEARANCE CLOUDY; URINE BACTERIA 120 /uL (0-1359); URINE BILIRUBIN NEGATIVE (NEGATIVE); URINE COLOR ORANGE; URINE GLUCOSE (UA) NEGATIVE (NEGATIVE); URINE KETONE NEGATIVE (NEGATIVE); URINE LEUK ESTERASE 2+ (NEGATIVE); URINE NITRITE NEGATIVE (NEGATIVE); URINE PROTEIN 2+ (NEGATIVE); URINE RBC 679 /uL (0-23.9); URINE WBC 496 /uL (0-25.8)
[2022-03-31] MEDS: PIPERACILLIN/TAZOB 3.375 GM 3.375 GM in DEXTROSE 5%-WATER - 50 ML IVPB SCH (22:27)
[2022-04-01] MEDS: PIPERACILLIN/TAZOB 3.375 GM 3.375 GM in DEXTROSE 5%-WATER - 50 ML IVPB SCH ×3 (02:12→17:20)
[2022-04-01] MEDS: POTASSIUM CHLORIDE 20 MEQ in DEXTROSE 5%-WATER - 1,000 ML IV SCH ×2 (03:25→16:42)
[2022-04-01] MEDS: ACETAMINOPHEN 1000 MG/100 ML BAG IVPB PRN (03:33)
[2022-04-01] MEDS: ALBUTEROL SO4 2.5/IPRATROPIUM 0.5 INH SOL 3 ML VIAL.NEB. NEB SCH ×4 (07:50→20:00)
[2022-04-01] MEDS: TAMSULOSIN HCL 0.4 MG CAP PO SCH (09:29)
[2022-04-01] MEDS: CYANOCOBALAMIN 1,000 MCG TABLET (FP) PO SCH (09:30)
[2022-04-01] MEDS: PANTOPRAZOLE SODIUM 40 MG VIAL IVPUSH SCH (09:46)
[2022-04-01 11:14] LABS: BASO % 0.5 % (0-2.0); EOS % 0.3 % (0-4.5); HEMATOCRIT 20.1 % (35.4-49); LYMPH % 12.2 % (8-40); MCH 33.9 pg (25.7-33.7); MCHC 33.5 g/dl (32.0-35.9); MEAN CELL VOLUME 101.1 fl (80-96); MEAN PLT VOLUME 10.8 fl (7.5-11.1); MONO % 6.4 % (3.8-10.2); NEUT % 80.6 % (42.8-82.8); PLATELET COUNT 57 10^3/uL (134-434); RBC 1.98 M/mm3 (4.00-5.60); RDW 19.8 % (11.9-15.9); WHITE BLOOD COUNT 5.2 K/mm3 (4.0-10.0)
[2022-04-01 11:22] LABS: HEMOGLOBIN 6.7 GM/dL (11.7-16.9)
[2022-04-01 11:23] LABS: ALBUMIN 1.7 g/dl (3.4-5.0); BLOOD UREA NITROGEN 29.5 mg/dL (7-18); MAGNESIUM 1.9 mg/dL (1.8-2.4)
[2022-04-01 11:26] LABS: CREATININE 1.3 mg/dL (0.55-1.3)
[2022-04-01 11:28] LABS: BILIRUBIN,TOTAL 0.6 mg/dL (0.2-1); TOT PROT 8.7 g/dl (6.4-8.2)
[2022-04-01] MEDS ORDERED: ACETAMINOPHEN 1000 MG/100 ML BAG IVPB PRN (12:15)
[2022-04-01 14:15] LABS: LACTIC ACID 3.2 mmol/L (0.4-2.0)
[2022-04-01] MEDS ORDERED: SODIUM CHLORIDE 500 ML IV STA (15:04)
[2022-04-01] MEDS ORDERED: VANCOMYCIN/WATER FOR INJ (PEG) 1,000 MG/200 ML BAG IVPB ONE (20:30)
[2022-04-02] MEDS: PIPERACILLIN/TAZOB 3.375 GM 3.375 GM in DEXTROSE 5%-WATER - 50 ML IVPB SCH ×2 (01:45→09:32)
[2022-04-02] MEDS: POTASSIUM CHLORIDE 20 MEQ in DEXTROSE 5%-WATER - 1,000 ML IV SCH ×2 (01:47→10:23)
[2022-04-02] MEDS: ALBUTEROL SO4 2.5/IPRATROPIUM 0.5 INH SOL 3 ML VIAL.NEB. NEB SCH ×4 (07:37→21:30)
[2022-04-02] MEDS: TAMSULOSIN HCL 0.4 MG CAP PO SCH (09:31)
[2022-04-02] MEDS: CYANOCOBALAMIN 1,000 MCG TABLET (FP) PO SCH (09:31)
[2022-04-02] MEDS: PANTOPRAZOLE SODIUM 40 MG VIAL IVPUSH SCH (09:32)
[2022-04-02 10:10] LABS: BASO % 0.2 % (0-2.0); EOS % 0.1 % (0-4.5); HEMATOCRIT 22.3 % (35.4-49); HEMOGLOBIN 7.6 GM/dL (11.7-16.9); LYMPH % 10.7 % (8-40); MCH 32.6 pg (25.7-33.7); MCHC 33.9 g/dl (32.0-35.9); MEAN CELL VOLUME 96.1 fl (80-96); MEAN PLT VOLUME 10.8 fl (7.5-11.1); MONO % 5.8 % (3.8-10.2); NEUT % 83.2 % (42.8-82.8); PLATELET COUNT 50 10^3/uL (134-434); RBC 2.32 M/mm3 (4.00-5.60); RDW 21.9 % (11.9-15.9); WHITE BLOOD COUNT 4.8 K/mm3 (4.0-10.0)
[2022-04-02 10:38] LABS: CHLORIDE 113 mmol/L (98-107); SODIUM 142 mmol/L (136-145)
[2022-04-02 10:58] LABS: ALBUMIN 1.5 g/dl (3.4-5.0); ANION GAP 8 MMOL/L (8-16); CO2 21 mmol/L (21-32); GLUCOSE,RANDOM 95 mg/dL (74-106)
[2022-04-02 11:01] LABS: CREATININE 1.4 mg/dL (0.55-1.3); SGOT/AST 36 U/L (15-37)
[2022-04-02 11:02] LABS: BILIRUBIN,TOTAL 0.6 mg/dL (0.2-1); SGPT/ALT 24 U/L (13-61); TOT PROT 8.5 g/dl (6.4-8.2)
[2022-04-02 11:05] LABS: ALK PHOS 40 U/L (45-117); CALCIUM 6.6 mg/dL (8.5-10.1)
[2022-04-02 11:18] LABS: LACTIC ACID 2.6 mmol/L (0.4-2.0)
[2022-04-02] MEDS ORDERED: DEXTROSE 5%-NORMAL SALINE 1,000 ML IV SCH (11:30)
[2022-04-02 12:10] LABS: ANISOCYTOSIS 1+; MACROCYTOSIS 1+; ROULEAU 2+
[2022-04-02] MEDS ORDERED: SODIUM CHLORIDE 500 ML IV STA (12:32)
[2022-04-02] MEDS: ACETAMINOPHEN 1000 MG/100 ML BAG IVPB PRN (14:46)
[2022-04-02] MEDS: AMINO ACIDS 4.25%/D5W 1,000 ML IV SCH (15:50)
[2022-04-02] MEDS: MEROPENEM 1 GM in DEXTROSE 5%-WATER 100 ML IVPB SCH (21:51)
[2022-04-03] MEDS: ACETAMINOPHEN 1000 MG/100 ML BAG IVPB PRN ×2 (01:42→12:27)
[2022-04-03] MEDS ORDERED: SODIUM CHLORIDE 1,000 ML IV SCH (04:45)
[2022-04-03] MEDS: ALBUTEROL SO4 2.5/IPRATROPIUM 0.5 INH SOL 3 ML VIAL.NEB. NEB SCH ×4 (07:39→20:05)
[2022-04-03] MEDS: CYANOCOBALAMIN 1,000 MCG TABLET (FP) PO SCH (09:17)
[2022-04-03] MEDS: TAMSULOSIN HCL 0.4 MG CAP PO SCH (09:17)
[2022-04-03] MEDS: MEROPENEM 1 GM in DEXTROSE 5%-WATER 100 ML IVPB SCH ×2 (09:55→21:35)
[2022-04-03] MEDS: PANTOPRAZOLE SODIUM 40 MG VIAL IVPUSH SCH ×2 (09:56→10:13)
[2022-04-03 10:27] LABS: BASO % 0.2 % (0-2.0); HEMATOCRIT 21.5 % (35.4-49); HEMOGLOBIN 7.3 GM/dL (11.7-16.9); MCH 32.3 pg (25.7-33.7); MCHC 33.7 g/dl (32.0-35.9); MEAN CELL VOLUME 95.9 fl (80-96); MEAN PLT VOLUME 11.2 fl (7.5-11.1); MONO % 4.1 % (3.8-10.2); NEUT % 85.7 % (42.8-82.8); PLATELET COUNT 43 10^3/uL (134-434); RBC 2.24 M/mm3 (4.00-5.60); WHITE BLOOD COUNT 3.8 K/mm3 (4.0-10.0)
[2022-04-03 10:31] LABS: ARTERIAL BLD GAS O2 SATURATION 98.4 % (95-98); ARTERIAL BLOOD GAS BASE EXCESS -5.2 mmol/L (-2-2); ARTERIAL BLOOD GAS PO2 113.3 mmHg (80-100); ARTERIAL BLOOD GAS pH 7.451 (7.350-7.450)
[2022-04-03 10:32] LABS: ALLENS TEST POSITIVE
[2022-04-03 10:49] LABS: LACTIC ACID 2.1 mmol/L (0.4-2.0)
[2022-04-03 11:10] LABS: CHLORIDE 120 mmol/L (98-107); SODIUM 146 mmol/L (136-145)
[2022-04-03 11:12] LABS: ALBUMIN 1.4 g/dl (3.4-5.0); ANION GAP 8 MMOL/L (8-16); BLOOD UREA NITROGEN 40.1 mg/dL (7-18); CO2 19 mmol/L (21-32); GLUCOSE,RANDOM 106 mg/dL (74-106)
[2022-04-03 11:15] LABS: CREATININE 1.3 mg/dL (0.55-1.3); SGOT/AST 47 U/L (15-37); SGPT/ALT 26 U/L (13-61)
[2022-04-03 11:16] LABS: BILIRUBIN,TOTAL 0.4 mg/dL (0.2-1)
[2022-04-03 11:17] LABS: ALK PHOS 41 U/L (45-117); TOT PROT 7.9 g/dl (6.4-8.2)
[2022-04-03 11:22] LABS: CALCIUM 6.3 mg/dL (8.5-10.1)
[2022-04-03] MEDS ORDERED: VANCOMYCIN/WATER FOR INJ (PEG) 1 GM/200 ML BAG IVPB ONE (12:25)
[2022-04-03] MEDS: AMINO ACIDS 4.25%/D5W 1,000 ML IV SCH (15:19)
[2022-04-03] MEDS ORDERED: ACETAMINOPHEN 1000 MG/100 ML BAG IVPB PRN (16:24)
[2022-04-04] MEDS: ALBUTEROL SO4 2.5/IPRATROPIUM 0.5 INH SOL 3 ML VIAL.NEB. NEB SCH ×4 (07:15→20:25)
[2022-04-04 08:12] LABS: BASO % 0.3 % (0-2.0); HEMATOCRIT 22.2 % (35.4-49); HEMOGLOBIN 7.4 GM/dL (11.7-16.9); LYMPH % 15.2 % (8-40); MCH 32.1 pg (25.7-33.7); MCHC 33.2 g/dl (32.0-35.9); MEAN CELL VOLUME 96.7 fl (80-96); MEAN PLT VOLUME 11.6 fl (7.5-11.1); MONO % 3.3 % (3.8-10.2); NEUT % 81.2 % (42.8-82.8); PLATELET COUNT 46 10^3/uL (134-434); RDW 21.5 % (11.9-15.9)
[2022-04-04 08:31] LABS: CHLORIDE 122 mmol/L (98-107); SODIUM 147 mmol/L (136-145)
[2022-04-04 08:54] LABS: ALBUMIN 1.4 g/dl (3.4-5.0); GLUCOSE,RANDOM 123 mg/dL (74-106); MAGNESIUM 2.1 mg/dL (1.8-2.4)
[2022-04-04 08:55] LABS: BLOOD UREA NITROGEN 47.9 mg/dL (7-18)
[2022-04-04 08:57] LABS: ANION GAP 6 MMOL/L (8-16); CO2 19 mmol/L (21-32)
[2022-04-04 08:58] LABS: CREATININE 1.3 mg/dL (0.55-1.3)
[2022-04-04 08:59] LABS: SGOT/AST 46 U/L (15-37); SGPT/ALT 24 U/L (13-61); TOT PROT 7.6 g/dl (6.4-8.2)
[2022-04-04 09:00] LABS: ALK PHOS 40 U/L (45-117)
[2022-04-04 09:02] LABS: BILIRUBIN,TOTAL 0.3 mg/dL (0.2-1); CALCIUM 6.6 mg/dL (8.5-10.1)
[2022-04-04] MEDS: CYANOCOBALAMIN 1,000 MCG TABLET (FP) PO SCH (09:15)
[2022-04-04] MEDS: TAMSULOSIN HCL 0.4 MG CAP PO SCH (09:15)
[2022-04-04] MEDS: MEROPENEM 1 GM in DEXTROSE 5%-WATER 100 ML IVPB SCH ×2 (09:21→21:42)
[2022-04-04] MEDS: PANTOPRAZOLE SODIUM 40 MG VIAL IVPUSH SCH (09:21)
[2022-04-04] MEDS: AMINO ACIDS 4.25%/D5W 1,000 ML IV SCH (21:41)
[2022-04-04] MEDS: HEPARIN NA (PORCINE) 5,000 UNITS/ML 1ML VIAL SQ SCH (21:42)
[2022-04-05] MEDS: ALBUTEROL SO4 2.5/IPRATROPIUM 0.5 INH SOL 3 ML VIAL.NEB. NEB SCH ×3 (07:40→15:25)
[2022-04-05] MEDS: AMINO ACIDS 4.25%/D5W 1,000 ML IV SCH (08:46)
[2022-04-05] MEDS: TAMSULOSIN HCL 0.4 MG CAP PO SCH (09:37)
[2022-04-05] MEDS: CYANOCOBALAMIN 1,000 MCG TABLET (FP) PO SCH (09:37)
[2022-04-05] MEDS: PANTOPRAZOLE SODIUM 40 MG VIAL IVPUSH SCH (09:51)
[2022-04-05] MEDS: HEPARIN NA (PORCINE) 5,000 UNITS/ML 1ML VIAL SQ SCH (09:52)
[2022-04-05] MEDS: MEROPENEM 1 GM in DEXTROSE 5%-WATER 100 ML IVPB SCH (10:01)
[2022-04-05] MEDS ORDERED: ACETAMINOPHEN 650 MG SUPP.RECT RC PRN (10:19)
[2022-04-05] MEDS ORDERED: LORazepam 2 MG/ML SDV VIAL IVPUSH PRN ×2 (10:19→17:56)
[2022-04-05] MEDS ORDERED: AMINO ACIDS 4.25%/D5W 1,000 ML IV SCH (11:15)
[2022-04-05 11:16] LABS: CHLORIDE 123 mmol/L (98-107); SODIUM 148 mmol/L (136-145)
[2022-04-05 11:29] LABS: GLUCOSE,RANDOM 126 mg/dL (74-106)
[2022-04-05 11:30] LABS: ALBUMIN 1.3 g/dl (3.4-5.0); ANION GAP 8 MMOL/L (8-16); CO2 18 mmol/L (21-32); MAGNESIUM 2.3 mg/dL (1.8-2.4)
[2022-04-05 11:32] LABS: SGOT/AST 43 U/L (15-37); SGPT/ALT 22 U/L (13-61)
[2022-04-05 11:33] LABS: CREATININE 1.9 mg/dL (0.55-1.3)
[2022-04-05 11:34] LABS: BILIRUBIN,TOTAL 0.4 mg/dL (0.2-1); TOT PROT 7.2 g/dl (6.4-8.2)
[2022-04-05 11:35] LABS: ALK PHOS 34 U/L (45-117)
[2022-04-05] MEDS ORDERED: MORPHINE 100 MG/100 ML MG IVPB SCH (12:00)
[2022-04-05 12:12] LABS: BLOOD UREA NITROGEN 77.3 mg/dL (7-18); CALCIUM 6.7 mg/dL (8.5-10.1)
[2022-04-05 15:04] VITALS: BP 100/52; PULSE 129; RESP 20; TEMP 101.5
[2022-04-05] MEDS ORDERED: LORazepam 2 MG/ML SDV VIAL IVPUSH ONE (17:15)
== END 2022-04-05 17:45 | disposition expired | DRG 840 ==
LOC: JER 11:20 → JERBED 12:59 → J6W 03-23 15:55 → J4W 03-28 00:55 → J8W 03-30 23:37
PROVIDERS: ADMIT Internal Medicine; ATTEND Nurse Practitioner Family
PROC: 30233N1 Transfusion of Nonautologous Red Blood Cells into Peripheral Vein, Percutaneous Approach (ICD-10-PCS; principal; 2022-04-01)
DX: C90.00 Multiple myeloma not having achieved remission (principal); A41.9 Sepsis, unspecified organism; G93.41 Metabolic encephalopathy; J96.01 Acute respiratory failure with hypoxia; N17.9 Acute kidney failure, unspecified; N39.0 Urinary tract infection, site not specified; D61.818 Other pancytopenia; E87.20 Acidosis, unspecified; E86.0 Dehydration; E87.5 Hyperkalemia; E83.52 Hypercalcemia; G47.33 Obstructive sleep apnea (adult) (pediatric); D64.9 Anemia, unspecified; I11.0 Hypertensive heart disease with heart failure; I50.9 Heart failure, unspecified; D69.6 Thrombocytopenia, unspecified; B96.5 Pseudomonas (aeruginosa) (mallei) (pseudomallei) as the cause of diseases classified elsewhere; E78.5 Hyperlipidemia, unspecified
CPT/HCPCS: 0241U-QW; 36415; 36430; 36600; 70450-TC; 71045-TC-FY; 76775-TC; 76856-TC; 80048; 80053; 80076; 81003; 82570; 82784; 82803; 83605; 83615; 83735; 83880; 83883; 84100; 84155; 84156; 84165; 84300; 84484; 85025; 85610; 85730; 86850; 86870; 86900; 86901; 86902; 86922; 87040; 87086; 87186; 87804; 87807; 93005; 93010; 94640; 97162-GP; 99285-25; C9803-CS; G0480; J0897; J1644; P9038; P9058; U0003; U0005